=== PATIENT | female | born 1975 | race Caucasian/White ===

== ENCOUNTER 2016-07-25 11:09 | Emergency (ER) | payer OTHER ==
[2016-07-25 11:25] VITALS: O2SAT 100
--- NOTE | 2016-07-25 11:49 | ERPHSYRPT ---
- History of Present Illness Time Seen by Provider: 07/25/16 11:28 Historian: patient Exam Limitations: no limitations Patient Subjective Stated Complaint: rt abd pain since 07/20 Triage Nursing Assessment: pt states she went to dr on 07/23 and has labs and us ordered. pt c/o rt abd pain for days. nausea with no vomiting. having 4 bm's daily. no food since 2300 last night. 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 skin pink and warm Physician History: Pt. with Hep C and c/o RUQ pain for 5-7 days, pulsating, sharp at times, rad to back associated with nausea, diarrhea but no dizziness, weakness. States pain is current 10/10. Pt. ate pork roast, potatoes and carrots for breakfast and Loren steak/cheese for dinner yesterday. Pt with chronic UTI and treated multiple times with multiple antibiotics. Just finished round of Cipro/Flagyl for recent UTI. Pt. have been seen multiple ER visits on 07/13 and 07/16/16 at [facility]. States had abd CT that showed "gastric ulcer." Denies any recent fever, chills or vomiting. Pt. is recovering drug addict and does not want any narcotics. Timing/Duration: day(s) (), intermittent Activities at Onset: none Quality: sharpness Abdominal Pain Onset Location: RUQ Pain Radiation: flank, back Severity of Pain-Max: moderate Severity of Pain-Current: moderate Modifying Factors: Improves With: eating (worsens) Associated Symptoms: weakness, No fever/chills, No heartburn, No loss of appetite, No shortness of breath, No vomiting Previous symptoms: same symptoms as today Allergies/Adverse Reactions: bismuth subsalicylate [From Pepto-Bismol] Allergy (Verified 07/25/16 11:24) Swelling sulfamethoxazole [From Bactrim] Allergy (Verified 07/25/16 11:24) Swelling trimethoprim [From Bactrim] Allergy (Verified 07/25/16 11:24) Swelling ANTACIDS Allergy (Uncoded 07/25/16 11:24) Swelling Home Medications: Lisinopril 20 mg [Zestril 20 MG] 20 mg PO DAILY 03/11/16 [History] Gabapentin 800 mg PO TID 07/25/16 [History] Hydrochlorothiazide 25 mg [hydroDIURIL 25 MG] 25 mg PO DAILY 07/25/16 [ History] Sucralfate 1 gm [Carafate 1 GM] 1 gm PO QID 07/25/16 [History] Hx Tetanus, Diphtheria Vaccination/Date Given: Yes Hx Influenza Vaccination/Date Given: No Hx Pneumococcal Vaccination/Date Given: No Immunizations Up to Date: Yes - Review of Systems Constitutional: Weakness, No Fever, No Chills Eyes: No Symptoms Ears, Nose, & Throat: No Symptoms Respiratory: No Symptoms, No Cough, No Dyspnea Cardiac: No Symptoms, No Chest Pain, No Edema, No Syncope Abdominal/Gastrointestinal: Abdominal Pain, Nausea, Diarrhea, No Vomiting, No Constipation, No Hematemesis Genitourinary Symptoms: No Dysuria, No Frequency, No Incontinence, No Urgency Musculoskeletal: No Symptoms, No Back Pain, No Neck Pain Skin: No Symptoms, No Rash Neurological: No Symptoms, No Dizziness, No Focal Weakness, No Sensory Changes Psychological: No Symptoms Endocrine: No Symptoms All Other Systems: Reviewed and Negative - Past Medical History Pertinent Past Medical History: Yes Neurological History: No Pertinent History ENT History: No Pertinent History Cardiac History: No Pertinent History Respiratory History: No Pertinent History Endocrine Medical History: No Pertinent History Musculoskeletal History: No Pertinent History GI Medical History: Gallbladder Disease, Hepatitis (Hep C) History: Other (Chronic UTI/Kidney Stones) Psycho-Social History: Anxiety, Depression Female Reproductive Disorders: Abnormal Uterine Bleeding, Menstrual Problems Other Medical History: CHRONIC BACK PAIN - POLYCYSTIC KIDNEY DISEASE - Past Surgical History Past Surgical History: Yes Neuro Surgical History: No Pertinent History Cardiac: No Pertinent History Respiratory: No Pertinent History Gastrointestinal: No Pertinent History Musculoskeletal: Orthopedic Surgery Female Surgical History: Tubal Ligation, Other Other Surgical History: ankle, knee, uterine ablasion - Social History Smoking Status: Current every day smoker How long have you smoked: 30 Exposure to second hand smoke: No Drug Use: methamphetamines, narcotics Patient Lives Alone: No Significant Family History: no pertinent family hx - Nursing Vital Signs Nursing Vital Signs: Initial Vital Signs Temperature 97.7 F Temperature Source Oral Pulse Rate 80 Respiratory Rate 18 Blood Pressure [Right Arm] 118/60 Pain Intensity 4 - Physical Exam General Appearance: no apparent distress, alert Eye Exam: PERRL/EOMI, eyes nml inspection Ears, Nose, Throat Exam: normal ENT inspection, pharynx normal, moist mucous membranes Neck Exam: normal inspection, non-tender, supple, full range of motion Respiratory Exam: normal breath sounds, lungs clear, No respiratory distress Cardiovascular Exam: regular rate/rhythm, normal heart sounds Gastrointestinal/Abdomen Exam: soft, normal bowel sounds, tenderness (RUQ), No mass, No guarding, No pulsatile mass, No rebound Pelvic Exam: not done Rectal Exam: deferred Back Exam: normal inspection, normal range of motion, No CVA tenderness, No vertebral tenderness Extremity Exam: normal inspection, normal range of motion, pelvis stable Neurologic Exam: alert, oriented x 3, cooperative, normal mood/affect, nml cerebellar function, sensation nml, No motor deficits Skin Exam: normal color, warm, dry SpO2: 100 Oxygen Delivery: Room Air Ordered Tests: Active Orders 24 hr Category Date Time Status Clean Catch Urine Specimen STAT Care 07/25/16 11:50 Active IV Insertion STAT Care 07/25/16 12:07 Active NPO (ED) STAT Care 07/25/16 11:50 Active OBSTR/ACUTE ABDOMEN SERIES Stat Exams 07/25/16 11:52 Taken AMYLASE Stat Lab 07/25/16 12:03 Completed CBC W DIFF Stat Lab 07/25/16 12:03 Completed CMP Stat Lab 07/25/16 12:03 Completed LIPASE Stat Lab 07/25/16 12:03 Completed UA W/ MICROSCOPIC Stat Lab 07/25/16 11:51 Completed Urine Triage Profile Stat Lab 07/25/16 11:51 Completed Medication Summary Discontinued Medications Generic Name Dose Route Start Last Admin Trade Name Roseanen PRN Reason Stop Dose Admin Famotidine 20 mg 07/25/16 11:50 07/25/16 12:09 Pepcid 20 Mg Vial IV 07/25/16 11:51 20 mg STAT ONE Administration Famotidine Confirm 07/25/16 12:08 Pepcid 20 Mg Vial Administered 07/25/16 12:09 Dose 20 mg IV .STK-MED ONE Nalbuphine HCl 5 mg 07/25/16 11:54 07/25/16 12:09 Nubain 10 Mg/Ml IV 07/25/16 11:55 5 mg STAT ONE Administration Nalbuphine HCl Confirm 07/25/16 12:08 Nubain 10 Mg/Ml Administered 07/25/16 12:09 Dose 10 mg .ROUTE .STK-MED ONE Ondansetron HCl 4 mg 07/25/16 11:50 07/25/16 12:09 Zofran 4 Mg/2 Ml Vial IV 07/25/16 11:51 4 mg STAT ONE Administration Ondansetron HCl Confirm 07/25/16 12:08 Zofran 4 Mg/2 Ml Vial Administered 07/25/16 12:09 Dose 4 mg .ROUTE .STK-MED ONE Lab/Rad Data: Laboratory Result Diagrams 07/25/16 12:03 07/25/16 12:03 Laboratory Results 07/25/16 07/25/16 07/25/16 Range/Units 12:03 12:03 11:51 WBC 5.1 (4.0-10.5) K/mm3 RBC 4.16 (4.1-5.4) M/mm3 Hgb 13.2 (12.0-16.0) gm/dl Hct 39.8 (35-47) % MCV 95.7 (78-100) fl MCH 31.7 (26-32) pg MCHC 33.2 (32-36) g/dl RDW 13.1 (11.5-14.0) % Plt Count 183 (150-450) K/mm3 MPV 9.7 H (6-9.5) fl Gran % 61.3 (36.0-66.0) % Lymphocytes % 29.2 (24.0-44.0) % Monocytes % 6.8 (0.0-12.0) % Eosinophils % 2.5 (0.00-5.0) % Basophils % 0.2 (0.0-0.4) % Basophils # 0.01 (0-0.4) Sodium 142 (136-145) mEq/L Potassium 3.9 (3.5-5.1) mEq/L Chloride 105 (98-107) mEq/L Carbon Dioxide 27.2 (21-32) mEq/L Anion Gap 14.1 (5-15) MEQ/L BUN 19 (9-20) mg/dL Creatinine 0.88 (0.55-1.30) mg/dl Estimated GFR > 60 ML/MIN Glucose 89 (70-110) MG/DL Calcium 8.7 (8.5-10.1) mg/dL Total Bilirubin 0.3 (0.2-1.0) mg/dL AST 35 (15-37) U/L ALT 54 (12-78) U/L Alkaline Phosphatase 33 L (46-116) U/L Serum Total Protein 8.0 (6.4-8.2) gm/dL Albumin 3.9 (3.4-5.0) g/dL Amylase 86 (25-115) U/L Lipase 191 (73-393) U/L Ur Collection Type Urine Color (YELLOW) Urine Appearance (CLEAR) Urine pH (5-6) Ur Specific Markle (1.005-1.025) Urine Protein (Negative) Urine Glucose (UA) (NEGATIVE) mg/dL Urine Ketones (NEGATIVE) Urine Nitrite (NEGATIVE) Urine Bilirubin (NEGATIVE) Urine Urobilinogen (0-1) mg/dL Urine WBC (Auto) (NEGATIVE) Urine RBC (Auto) (0-5) Kamlesh/ul Urine Microscopic WBC (0-5) /HPF Ur Epithelial Cells (FEW) /HPF Urine Bacteria (NEGATIVE) /HPF Urine Opiates Level NEG. (NEGATIVE) Ur Methadone NEG. (NEGATIVE) Urine Barbiturates NEG. (NEGATIVE) Ur Phencyclidine (PCP) NEG. (NEGATIVE) Urine Amphetamine NEG. (NEGATIVE) U Benzodiazepine Level NEG. (NEGATIVE) Urine Cocaine NEG. (NEGATIVE) Urine Marijuana (THC) NEG. (NEGATIVE) Specimen Received 07/25/16 Range/Units 11:51 WBC (4.0-10.5) K/mm3 RBC (4.1-5.4) M/mm3 Hgb (12.0-16.0) gm/dl Hct (35-47) % MCV (78-100) fl MCH (26-32) pg MCHC (32-36) g/dl RDW (11.5-14.0) % Plt Count (150-450) K/mm3 MPV (6-9.5) fl Gran % (36.0-66.0) % Lymphocytes % (24.0-44.0) % Monocytes % (0.0-12.0) % Eosinophils % (0.00-5.0) % Basophils % (0.0-0.4) % Basophils # (0-0.4) Sodium (136-145) mEq/L Potassium (3.5-5.1) mEq/L Chloride (98-107) mEq/L Carbon Dioxide (21-32) mEq/L Anion Gap (5-15) MEQ/L BUN (9-20) mg/dL Creatinine (0.55-1.30) mg/dl Estimated GFR ML/MIN Glucose (70-110) MG/DL Calcium (8.5-10.1) mg/dL Total Bilirubin (0.2-1.0) mg/dL AST (15-37) U/L ALT (12-78) U/L Alkaline Phosphatase (46-116) U/L Serum Total Protein (6.4-8.2) gm/dL Albumin (3.4-5.0) g/dL Amylase (25-115) U/L Lipase (73-393) U/L Ur Collection Type CLEAN CATCH Urine Color YELLOW (YELLOW) Urine Appearance CLEAR (CLEAR) Urine pH 6.0 (5-6) Ur Specific Markle 1.015 (1.005-1.025) Urine Protein NEGATIVE (Negative) Urine Glucose (UA) NEGATIVE (NEGATIVE) mg/dL Urine Ketones NEGATIVE (NEGATIVE) Urine Nitrite NEGATIVE (NEGATIVE) Urine Bilirubin NEGATIVE (NEGATIVE) Urine Urobilinogen 0.2 (0-1) mg/dL Urine WBC (Auto) SMALL (NEGATIVE) Urine RBC (Auto) NEGATIVE (0-5) Kamlesh/ul Urine Microscopic WBC 10-15 (0-5) /HPF Ur Epithelial Cells FEW (FEW) /HPF Urine Bacteria FEW (NEGATIVE) /HPF Urine Opiates Level (NEGATIVE) Ur Methadone (NEGATIVE) Urine Barbiturates (NEGATIVE) Ur Phencyclidine (PCP) (NEGATIVE) Urine Amphetamine (NEGATIVE) U Benzodiazepine Level (NEGATIVE) Urine Cocaine (NEGATIVE) Urine Marijuana (THC) (NEGATIVE) Specimen Received [id number] - Progress Progress: improved Progress Note: 07/25/16 12:04 Pt. given Pepcid, Zofran, Nubain for pain. 07/25/16 13:07 States she feels better. Explained to pt. about normal labs and X-rays findings. Feels better and ready to go home Counseled pt/family regarding: lab results, diagnosis, rad results - Departure Time of Disposition: 13:09 Departure Disposition: Home, Extended Care Facility, [facility] Clinical Impression: Abdominal pain, Chronic UTI Condition: Stable Critical Care Time: No Instructions: Abdominal Pain-Adult, Urinary Tract Infection (UTI) Additional Instructions: No greasy, fatty or fried foods. Eat a bland diet for the next 3-5 days. Drink plenty of fluids RX: Pepcid Return for worse abdominal pain, vomiting, fever or any problems Prescriptions: Famotidine 20 mg [Pepcid 20 MG] 20 mg PO BID #30 tab
[2016-07-25] MEDS ORDERED: Zofran 4 MG/2 ML VIAL IV ONE (11:50)
[2016-07-25] MEDS ORDERED: Pepcid 20 MG VIAL IV ONE ×2 (11:50→12:08)
[2016-07-25] MEDS ORDERED: Nubain 10 MG/ML IV ONE (11:54)
[2016-07-25] MEDS ORDERED: Zofran 4 MG/2 ML VIAL ONE (12:08)
[2016-07-25] MEDS ORDERED: Nubain 10 MG/ML ONE (12:08)
[2016-07-25 12:13] LABS: BASOPHIL % 0.2 % (0.0-0.4); Eosinophil % 2.5 % (0.00-5.0); Granulocytes % 61.3 % (36.0-66.0); Lymphocytes % 29.2 % (24.0-44.0); Mean Cell Volume 95.7 fl (78-100); Mean Corpuscular Hemoglobin 31.7 pg (26-32); Mean Platelet Volume 9.7 fl (6-9.5); Monocytes % 6.8 % (0.0-12.0); Platelet Count 183 K/mm3 (150-450); Red Blood Count 4.16 M/mm3 (4.1-5.4); Red Cell Distribution Width 13.1 % (11.5-14.0); White Blood Count 5.1 K/mm3 (4.0-10.5)
[2016-07-25 12:16] LABS: Collection Type CLEAN CATCH
[2016-07-25 12:17] LABS: COMPLETE URINE MICROSCOPIC? YES
[2016-07-25 12:28] LABS: Bacteria FEW /HPF (NEGATIVE); Epithelial Cells FEW /HPF (FEW)
[2016-07-25 12:36] LABS: ALBUMIN 3.9 g/dL (3.4-5.0); ALKALINE PHOSPHATASE 33 U/L (46-116); ANION GAP 14.1 MEQ/L (5-15); BILIRUBIN,TOTAL 0.3 mg/dL (0.2-1.0); BLOOD UREA NITROGEN 19 mg/dL (9-20); CHLORIDE 105 mEq/L (98-107); Carbon Dioxide 27.2 mEq/L (21-32); Glucose 89 MG/DL (70-110); LIPASE 191 U/L (73-393); Potassium 3.9 mEq/L (3.5-5.1); SGOT/AST 35 U/L (15-37); SGPT/ALT 54 U/L (12-78); SODIUM 142 mEq/L (136-145)
[2016-07-25 12:51] VITALS: BP 118/60; PULSE 80
--- NOTE | 2016-07-25 21:04 | XRAY ---
Indication: Abdominal pain. History of kidney stones. Comparison: Chest exam March 11, 2016. 2 views of the abdomen demonstrates nonspecific nonobstructed bowel gas pattern. There are bilateral renal micro-calculi, left greater than right. No radiopaque calculus along the ureters or bladder. Left pelvic phlebolith. Remaining solid organs and osseous structures unremarkable. Single PA chest again demonstrates normal heart, lungs, and bony thorax. Impression: 1. Bilateral renal micro-calculi better evaluated with CT if clinically warranted. 2. Stable normal one view chest.
== END 2016-07-25 13:25 | disposition home or self-care (01) ==
LOC: ED 11:09
DX: R10.11 Right upper quadrant pain (principal); N39.0 Urinary tract infection, site not specified; Z87.440 Personal history of urinary (tract) infections; R11.0 Nausea; B19.20 Unspecified viral hepatitis C without hepatic coma; R19.7 Diarrhea, unspecified
CPT/HCPCS: 36000; 36415; 74022; 80053; 80307; 81000; 82150; 83690; 85025; 96374; 96375; 99284; J2300; J2405

== ENCOUNTER 2017-01-14 07:34 | Emergency (ER) | payer OTHER ==
[2017-01-14] MEDS ORDERED: NORCO 5/325 MG PO ONE (07:50)
[2017-01-14] MEDS ORDERED: NORCO 5/325 MG ONE (07:58)
--- NOTE | 2017-01-14 08:01 | ERPHSYRPT ---
- History of Present Illness Time Seen by Provider: 01/14/17 07:37 Source: patient Patient Subjective Stated Complaint: pt co pain to left knee since wednesday, no injury noted, had foot surg on december 04 Triage Nursing Assessment: left lower leg swollen, warm to touch, resp easy, skin w/d Physician History: CC: left leg pain hx: 41 y/o patient of Dr Mcknight had tarasal tunnel surgery last month per Dr Cruz. She has done well. Wednesday of this week she thinks she twisted left knee and has had pain in left knee for the past 2 days. No redness, warmth or fever. She had remote left knee surgery at age 14. Allergic to bactrim. Currently on levaquin for sinus infection and has some cough. No N/T/W. Lower Extremities Pain: knee: left Allergies/Adverse Reactions: bismuth subsalicylate [From Pepto-Bismol] Allergy (Verified 01/14/17 07:45) Swelling sulfamethoxazole [From Bactrim] Allergy (Verified 01/14/17 07:45) Swelling trimethoprim [From Bactrim] Allergy (Verified 01/14/17 07:45) Swelling ANTACIDS Allergy (Uncoded 01/14/17 07:45) Swelling Home Medications: Lisinopril 20 mg [Zestril 20 MG] 20 mg PO DAILY 03/11/16 [History] Gabapentin 800 mg PO TID 07/25/16 [History] Hydrochlorothiazide 25 mg [hydroDIURIL 25 MG] 25 mg PO DAILY 07/25/16 [ History] Sucralfate 1 gm [Carafate 1 GM] 1 gm PO QID 07/25/16 [History] Hx Tetanus, Diphtheria Vaccination/Date Given: Yes Hx Influenza Vaccination/Date Given: No Hx Pneumococcal Vaccination/Date Given: No Immunizations Up to Date: Yes - Review of Systems Constitutional: No Fever, No Chills Musculoskeletal: Joint Pain (left knee), No Back Pain, No Neck Pain Skin: No Rash, No Skin Lesions Neurological: No Focal Weakness, No Parasthesia - Past Medical History Pertinent Past Medical History: Yes Neurological History: No Pertinent History ENT History: No Pertinent History Cardiac History: No Pertinent History Respiratory History: No Pertinent History Endocrine Medical History: No Pertinent History Musculoskeletal History: No Pertinent History GI Medical History: Gallbladder Disease, Hepatitis History: Other Psycho-Social History: Anxiety, Depression Female Reproductive Disorders: Abnormal Uterine Bleeding, Menstrual Problems Other Medical History: CHRONIC BACK PAIN - POLYCYSTIC KIDNEY DISEASE - Past Surgical History Past Surgical History: Yes Neuro Surgical History: No Pertinent History Cardiac: No Pertinent History Respiratory: No Pertinent History Gastrointestinal: No Pertinent History Musculoskeletal: Orthopedic Surgery Female Surgical History: Tubal Ligation, Other Other Surgical History: ankle, knee, uterine ablasion,knee surg - Social History Smoking Status: Current every day smoker How long have you smoked: 30 Exposure to second hand smoke: Yes Drug Use: methamphetamines, narcotics Patient Lives Alone: No Significant Family History: no pertinent family hx - Female History Hx Last Menstrual Period: none - Nursing Vital Signs Nursing Vital Signs: Initial Vital Signs Temperature 97.8 F 01/14/17 07:39 Pulse Rate 71 01/14/17 07:39 Respiratory Rate 16 01/14/17 07:39 Blood Pressure 127/67 01/14/17 07:39 O2 Sat by Pulse Oximetry 98 01/14/17 07:39 Pain Scale Pain Intensity 10 - Physical Exam General Appearance: alert Neck Exam: supple Cardiovascular/Respiratory Exam: regular rate/rhythm Neuro/Tendon Exam: normal sensation, normal motor functions Mental Status Exam: alert, oriented x 3, cooperative Skin Exam: warm, dry SpO2 Interpretation: normal SpO2: 98 Oxygen Delivery: Room Air Comments: left knee has healed scar. Some swelling. Tenderness present. No redness or warmth. The entire left leg has some swelling and mild diffuse tenderness. Pulses intact. No redness or warmth. - Course Nursing assessment & vital signs reviewed: Yes - Radiology Exams left knee, lower leg X-ray Interpretation: Discussed w/ radiologist, Negative (STS, no fx, prepatellar swelling, vascular calcifications) - Radiology Ultrasound Exam left leg doppler Ultrasound: Other (no DVT per tech) Ordered Tests: Active Orders 24 hr Category Date Time Status Jim Bandage Application -[facility] STAT Care 01/14/17 08:58 Active KNEE (1 OR 2 VIEW) Stat Exams 01/14/17 07:54 Completed LOWER LEG Stat Exams 01/14/17 07:54 Completed VENOUS UNILAT/LIMITED EXTREMIT [US] Stat Exams 01/14/17 07:55 Taken Medication Summary Discontinued Medications Generic Name Dose Route Start Last Admin Trade Name Roseanne PRN Reason Stop Dose Admin Hydrocodone Bitart/Acetaminophen 1 tab 01/14/17 07:50 01/14/17 08:00 Hines 5/325 Mg PO 01/14/17 07:51 1 tab STAT ONE Administration Hydrocodone Bitart/Acetaminophen Confirm 01/14/17 07:58 Hines 5/325 Mg Administered 01/14/17 07:59 Dose 1 tab .ROUTE .STK-MED ONE - Progress Progress Note: 01/14/17 08:59 She reports wearing jim wrap for 2 days and took it off this AM as the leg was swollen. Perhaps the edema is from the jim. Proper use of jim, not too tight, and removing at night advised. Follow up with Dr Mcknight advised. Advised no nephrotoxic medications as she has polycystic kidneys. Counseled pt/family regarding: diagnosis, need for follow-up, rad results - Departure Time of Disposition: 09:00 Departure Disposition: Home Clinical Impression: Sprain of left knee Qualifiers: Encounter type: initial encounter Involved ligament of knee: unspecified ligament Qualified Code(s): S83.92XA - Sprain of unspecified site of left knee, initial encounter Condition: Stable Critical Care Time: No Referrals: ESTER MCKNIGHT [Primary Care Provider] - Instructions: Apply an Jim Wrap, Knee Sprain Additional Instructions: No ibuprofen, aleve, naproxen, or NSAIDS. Loose jim wrap during day for comfort. Ice, elevate, rest. Follow up with Dr Mcknight. Rx norco- no driving today or while taking. Prescriptions: Hydrocodone Bit/Acetaminophen [Hines 5-325 Tablet] 1 each PO Q6H PRN PRN #5 tablet PRN Reason: Pain
--- NOTE | 2017-01-14 08:47 | XRAY ---
Indication: Pain. Comparison: None 2 views of the left lower leg demonstrates knee degenerative changes reported separately and mild diffuse soft tissue swelling/edema. No other bony, articular, or soft tissue abnormalities.
--- NOTE | 2017-01-14 08:47 | XRAY ---
Indication: Pain. Comparison: None AP/lateral left knee intact with mild tricompartmental degenerative changes, nonspecific suprapatellar effusion, and faint posterior vascular calcifications. No other bony, articular, or soft tissue abnormalities.
--- NOTE | 2017-01-14 09:08 | XRAY ---
Indication: Left leg pain. Two-dimensional sonogram and color Doppler imaging of the major venous vessels of the left leg was performed. Comparison: None No thrombus seen in the examined deep venous vessels of the left leg including greater saphenous vein. Veins demonstrate normal compressibility. Venous waveforms are normal with and without augmentation. Impression: Left leg negative for DVT.
[2017-01-14 09:15] VITALS: BP 133/67; PULSE 77; O2SAT 97
== END 2017-01-14 09:14 | disposition home or self-care (01) ==
LOC: ED 07:34
DX: S83.92XA Sprain of unspecified site of left knee, initial encounter (principal); M25.562 Pain in left knee; X50.0XXA Overexertion from strenuous movement or load, initial encounter
CPT/HCPCS: 73560; 73590; 93971; 99282; 99283; A9270-GY

== ENCOUNTER 2017-01-27 14:00 | Emergency (ER) | payer OTHER ==
[2017-01-27] MEDS ORDERED: Sodium Chloride 0.9% 1000 ML 1,000 ML IV STA (15:14)
[2017-01-27] MEDS ORDERED: TORAdol 30 mg Injection IV ONE (15:14)
--- NOTE | 2017-01-27 15:19 | ERPHSYRPT ---
- History of Present Illness Time Seen by Provider: 01/27/17 15:14 Historian: patient Exam Limitations: no limitations Patient Subjective Stated Complaint: Pt states "I have a major malfunction with my left kidney. It started to hurt this morning and it is not getting any better." Triage Nursing Assessment: Pt alert and oriented X 3, skin pwd. PT ambulates with an upright steady gait. PT able to speak in full clear sentences. Physician History: This is a 41-year-old white female arrives with complaint of pain in her left flank symptoms since four o'clock this morning Patient denies dysuria hematuria nausea vomiting pain is in her left flank and left lateral abdomen. Past medical history includes gallbladder disease, hepatitis, abnormal uterine bleeding, menstrual problems, anxiety, depression, chronic back pain, polycystic kidney disease. Past surgical history includes tubal ligation and uterine ablation knee surgery. Timing/Duration: today (4:30 this morning) Activities at Onset: rest Quality: cramping, sharpness Abdominal Pain Onset Location: flank (left flank), other (left lateral abdomen) Pain Radiation: flank (left flank) Severity of Pain-Max: moderate Severity of Pain-Current: moderate Modifying Factors: Improves With: nothing Associated Symptoms: back (left flank pain), No chest pain, No diaphoresis, No diarrhea, No fever/chills, No fatigue, No headache, No heartburn, No loss of appetite, No nausea, No neck pain, No rash, No shortness of breath, No syncope, No vomiting, No weakness Previous symptoms: no prior history Allergies/Adverse Reactions: bismuth subsalicylate [From Pepto-Bismol] Allergy (Verified 01/14/17 07:45) Swelling sulfamethoxazole [From Bactrim] Allergy (Verified 01/14/17 07:45) Swelling trimethoprim [From Bactrim] Allergy (Verified 01/14/17 07:45) Swelling ANTACIDS Allergy (Uncoded 01/14/17 07:45) Swelling Home Medications: Lisinopril 20 mg [Zestril 20 MG] 20 mg PO DAILY 03/11/16 [History] Gabapentin 800 mg PO TID 07/25/16 [History] Hydrochlorothiazide 25 mg [hydroDIURIL 25 MG] 25 mg PO DAILY 07/25/16 [ History] Sucralfate 1 gm [Carafate 1 GM] 1 gm PO QID 07/25/16 [History] Hx Tetanus, Diphtheria Vaccination/Date Given: Yes Hx Influenza Vaccination/Date Given: No Hx Pneumococcal Vaccination/Date Given: No Immunizations Up to Date: Yes - Review of Systems Constitutional: No Fever, No Chills Eyes: No Symptoms Ears, Nose, & Throat: No Symptoms Respiratory: No Cough, No Dyspnea Cardiac: No Chest Pain, No Edema, No Syncope Abdominal/Gastrointestinal: Abdominal Pain (left lateral abdomen pain), No Nausea, No Vomiting, No Constipation, No Hematemesis, No Hematochezia, No Melena , No Dysphagia, No Appetite Changes Genitourinary Symptoms: Flank Pain (left flank pain), No Dysuria, No Frequency, No Hematuria, No Hesitancy, No Urgency, No Urinary Retention, No Menorrhagia, No , No Vaginal Bleeding, No Vaginal Discharge Musculoskeletal: No Arthralgias, No Back Pain ( left flank pain), No Neck Pain, No Deformity, No Fall, No Joint Redness, No Joint Pain, No Joint Swelling, No Myalgias Skin: No No Symptoms, No Cellulitis, No Decubiti, No Induration, No Pruritis, No Rash, No Skin Lesions Neurological: No Dizziness, No Focal Weakness, No Sensory Changes Psychological: No Symptoms Endocrine: No Symptoms All Other Systems: Reviewed and Negative - Past Medical History Pertinent Past Medical History: Yes Neurological History: No Pertinent History ENT History: No Pertinent History Cardiac History: No Pertinent History Respiratory History: No Pertinent History Endocrine Medical History: No Pertinent History Musculoskeletal History: No Pertinent History GI Medical History: Gallbladder Disease, Hepatitis History: Other Psycho-Social History: Anxiety, Depression Female Reproductive Disorders: Abnormal Uterine Bleeding, Menstrual Problems Other Medical History: CHRONIC BACK PAIN - POLYCYSTIC KIDNEY DISEASE - Past Surgical History Past Surgical History: Yes Neuro Surgical History: No Pertinent History Cardiac: No Pertinent History Respiratory: No Pertinent History Gastrointestinal: No Pertinent History Musculoskeletal: Orthopedic Surgery Female Surgical History: Tubal Ligation, Other Other Surgical History: ankle, knee, uterine ablasion,knee surg - Social History Smoking Status: Current every day smoker How long have you smoked: 33 years Exposure to second hand smoke: Yes Drug Use: methamphetamines, narcotics Patient Lives Alone: No Significant Family History: no pertinent family hx - Female History Hx Last Menstrual Period: ablasion - Nursing Vital Signs Nursing Vital Signs: Initial Vital Signs Temperature 98.6 F 01/27/17 14:47 Pulse Rate 104 H 01/27/17 14:47 Respiratory Rate 20 01/27/17 14:47 Blood Pressure 129/90 01/27/17 14:47 O2 Sat by Pulse Oximetry 94 L 01/27/17 14:47 Pain Scale Pain Intensity 8 - Physical Exam General Appearance: moderate distress, alert Eye Exam: PERRL/EOMI, eyes nml inspection Ears, Nose, Throat Exam: normal ENT inspection, pharynx normal, moist mucous membranes Neck Exam: normal inspection, non-tender, supple, full range of motion Respiratory Exam: normal breath sounds, lungs clear, No respiratory distress Cardiovascular Exam: regular rate/rhythm, normal heart sounds, normal peripheral pulses Gastrointestinal/Abdomen Exam: soft, normal bowel sounds, tenderness (left lateral abdomen pain), No distention, No mass, No guarding, No ecchymosis, No pulsatile mass, No rebound, No hernia, No hepatomegaly, No organomegaly, No splenomegaly Back Exam: normal range of motion, CVA tenderness (left flank pain), No vertebral tenderness, No rash, No decreased range of motion, No muscle spasm, No point tenderness Extremity Exam: normal inspection, normal range of motion, pelvis stable Neurologic Exam: alert, oriented x 3, cooperative, normal mood/affect, nml cerebellar function, sensation nml, No motor deficits Skin Exam: normal color, warm, dry SpO2 Interpretation: normal (94%) SpO2: 94 Oxygen Delivery: Room Air - Course Nursing assessment & vital signs reviewed: Yes - CT Exams Abdomen/Pelvis CT Interpretation: Discussed w/radiologist (CT abdomen and pelvis: impression: 1. Few loops of jejunum demonstrating abnormal wall thickening and at least one adjacent bowel loops which is mildly distended with gas. The appearance is nonspecific, but could indicate an enteritis. A small bowel follow-through may be considered for further evaluation. 2. Multiple simple and probable complicated renal cysts along with bilateral intrarenal nephrolithiasis. There is no hydronephrosis. A solid renal mass is difficult to exclude on this exam. Please see the final report for recommendations regarding follow-up. 3. Bilateral simple larger on the left. if symptomatic, an ultrasound may be obtained for further evaluation.) Ordered Tests: Active Orders 24 hr Category Date Time Status IV Insertion STAT Care 01/27/17 15:14 Active ABDOMEN AND PELVIS W/0 CONTRAS [CT] Stat Exams 01/27/17 17:04 Taken AMYLASE Stat Lab 01/27/17 16:35 Completed CBC W DIFF Stat Lab 01/27/17 15:14 Completed CMP Stat Lab 01/27/17 16:35 Completed CULTURE,URINE Stat Lab 01/27/17 15:30 Received HCG QUALITATIVE,SERUM Stat Lab 01/27/17 16:35 Completed LIPASE Stat Lab 01/27/17 16:35 Completed UA W/ MICROSCOPIC Stat Lab 01/27/17 15:30 Completed Medication Summary Discontinued Medications Generic Name Dose Route Start Last Admin Trade Name Freq PRN Reason Stop Dose Admin Sodium Chloride 1,000 mls @ 999 mls/hr 01/27/17 15:14 01/27/17 15:57 Sodium Chloride 0.9% 1000 Ml IV 01/27/17 16:14 999 mls/hr .Q1H1M STA Administration Sodium Chloride Confirm 01/27/17 15:53 Sodium Chloride 0.9% 1000 Ml Administered 01/27/17 15:54 Dose 1,000 mls @ ud .ROUTE .STK-MED ONE Ketorolac Tromethamine 30 mg 01/27/17 15:14 01/27/17 15:57 Toradol 30 Mg Injection IV 01/27/17 15:15 30 mg STAT ONE Administration Ketorolac Tromethamine Confirm 01/27/17 15:53 Toradol 30 Mg Injection Administered 01/27/17 15:54 Dose 30 mg .ROUTE .STK-MED ONE Morphine Sulfate 4 mg 01/27/17 16:31 01/27/17 16:35 Morphine Sulfate 4 Mg Inj IV 01/27/17 16:32 4 mg STAT ONE Administration Morphine Sulfate Confirm 01/27/17 16:34 Morphine Sulfate 4 Mg Inj Administered 01/27/17 16:35 Dose 4 mg .ROUTE .STK-MED ONE Morphine Sulfate 4 mg 01/27/17 17:07 01/27/17 17:09 Morphine Sulfate 4 Mg Inj IV 01/27/17 17:08 4 mg STAT ONE Administration Morphine Sulfate Confirm 01/27/17 17:09 Morphine Sulfate 4 Mg Inj Administered 01/27/17 17:10 Dose 4 mg .ROUTE .STK-MED ONE Ondansetron HCl 4 mg 01/27/17 16:31 01/27/17 16:35 Zofran 4 Mg/2 Ml Vial IV 01/27/17 16:32 4 mg STAT ONE Administration Ondansetron HCl Confirm 01/27/17 16:34 Zofran 4 Mg/2 Ml Vial Administered 01/27/17 16:35 Dose 4 mg .ROUTE .STK-MED ONE Lab/Rad Data: Laboratory Result Diagrams 01/27/17 15:14 01/27/17 16:35 Laboratory Results 01/27/17 01/27/17 01/27/17 Range/Units 16:35 16:35 15:30 WBC (4.0-10.5) K/mm3 RBC (4.1-5.4) M/mm3 Hgb (12.0-16.0) gm/dl Hct (35-47) % MCV (78-100) fl MCH (26-32) pg MCHC (32-36) g/dl RDW (11.5-14.0) % Plt Count (150-450) K/mm3 MPV (6-9.5) fl Gran % (36.0-66.0) % Lymphocytes % (24.0-44.0) % Monocytes % (0.0-12.0) % Eosinophils % (0.00-5.0) % Basophils % (0.0-0.4) % Basophils # (0-0.4) Sodium 138 (136-145) mEq/L Potassium 3.7 (3.5-5.1) mEq/L Chloride 101 (98-107) mEq/L Carbon Dioxide 27.0 (21-32) mEq/L Anion Gap 13.8 (5-15) MEQ/L BUN 18 (9-20) mg/dL Creatinine 0.85 (0.55-1.30) mg/dl Estimated GFR > 60 ML/MIN Glucose 101 (70-110) MG/DL Calcium 8.8 (8.5-10.1) mg/dL Total Bilirubin 0.20 (0.2-1.0) mg/dL AST 15 (15-37) U/L ALT 40 (12-78) U/L Alkaline Phosphatase 47 (46-116) U/L Serum Total Protein 7.1 (6.4-8.2) gm/dL Albumin 3.5 (3.4-5.0) g/dL Amylase 66 (25-115) U/L Lipase 140 (73-393) U/L Serum , Qual NEGATIVE (Negative) Ur Collection Type CLEAN CATCH Urine Color YELLOW (YELLOW) Urine Appearance CLEAR (CLEAR) Urine pH 6.0 (5-6) Ur Specific [place] 1.010 (1.005-1.025) Urine Protein NEGATIVE (Negative) Urine Ketones NEGATIVE (NEGATIVE) Urine Blood NEGATIVE (0-5) Kamlesh/ul Urine Nitrite NEGATIVE (NEGATIVE) Urine Bilirubin NEGATIVE (NEGATIVE) Urine Urobilinogen NORMAL (0-1) mg/dL Ur Leukocyte Esterase 2+ (NEGATIVE) Urine Microscopic WBC 15-25 (0-5) /HPF Ur Epithelial Cells FEW (FEW) /HPF Urine Bacteria RARE (NEGATIVE) /HPF Urine Glucose NEGATIVE (NEGATIVE) mg/dL Specimen Received 01/27/17 1530 01/27/17 Range/Units 15:14 WBC 17.4 H (4.0-10.5) K/mm3 RBC 4.74 (4.1-5.4) M/mm3 Hgb 15.2 (12.0-16.0) gm/dl Hct 45.1 (35-47) % MCV 95.1 (78-100) fl MCH 32.1 H (26-32) pg MCHC 33.7 (32-36) g/dl RDW 14.1 H (11.5-14.0) % Plt Count 107 L (150-450) K/mm3 MPV 11.1 H (6-9.5) fl Gran % 83.9 H (36.0-66.0) % Lymphocytes % 11.9 L (24.0-44.0) % Monocytes % 4.0 (0.0-12.0) % Eosinophils % 0.1 (0.00-5.0) % Basophils % 0.1 (0.0-0.4) % Basophils # 0.01 (0-0.4) Sodium (136-145) mEq/L Potassium (3.5-5.1) mEq/L Chloride (98-107) mEq/L Carbon Dioxide (21-32) mEq/L Anion Gap (5-15) MEQ/L BUN (9-20) mg/dL Creatinine (0.55-1.30) mg/dl Estimated GFR ML/MIN Glucose (70-110) MG/DL Calcium (8.5-10.1) mg/dL Total Bilirubin (0.2-1.0) mg/dL AST (15-37) U/L ALT (12-78) U/L Alkaline Phosphatase (46-116) U/L Serum Total Protein (6.4-8.2) gm/dL Albumin (3.4-5.0) g/dL Amylase (25-115) U/L Lipase (73-393) U/L Serum , Qual (Negative) Ur Collection Type Urine Color (YELLOW) Urine Appearance (CLEAR) Urine pH (5-6) Ur Specific [place] (1.005-1.025) Urine Protein (Negative) Urine Ketones (NEGATIVE) Urine Blood (0-5) Kamlesh/ul Urine Nitrite (NEGATIVE) Urine Bilirubin (NEGATIVE) Urine Urobilinogen (0-1) mg/dL Ur Leukocyte Esterase (NEGATIVE) Urine Microscopic WBC (0-5) /HPF Ur Epithelial Cells (FEW) /HPF Urine Bacteria (NEGATIVE) /HPF Urine Glucose (NEGATIVE) mg/dL Specimen Received - Progress Progress: improved Progress Note: 01/27/17 18:37 41-year-old white female arrives with complaint of left flank pain since 4:00 this morning She does have a history of gallbladder disease hepatitis abnormal uterine bleeding chronic back pain anxiety depression and polycystic kidney disease Patient was seen in the emergency room patient was noted to have a CT that showed few loops of jejunum demonstrating abnormal wall thickening at least one adjacent small bowel loop which was mildly distended with gas appearance was nonspecific could represent an enteritis she also had multiple simple and probable complicated renal cysts along with bilateral intrarenal nephrolithiasis there was no hydronephrosis a solid mass was difficult to exclude on this exam she had bilateral simple adnexal cysts larger on the left. Patient had a white count of 17.4 hemoglobin 15.2 hematocrit 45.1 platelets 107 patient's urine showed 15-25 white cells per high-power field chemistry was essentially normal Patient received a dose of Toradol, multiple doses of morphine and IV fluids. I offered to discuss this with the physician on-call for the hospital however the patient states she wants to go home Will go ahead and place patient on Cipro 500 mg by mouth twice a day. And write for a small amount of [place] patient states she will follow-up with her family doctor tomorrow morning. - Departure Time of Disposition: 18:40 Departure Disposition: Home Clinical Impression: Flank pain, Urinary tract infectious disease, History of polycystic kidney disease Condition: Fair Critical Care Time: No Referrals: ESTER LEONARD [Primary Care Provider] - Additional Instructions: Return home. Plenty of fluids, clear fluids only 24-48 hours if abdominal pain. [place] 5/325 #12 one orally every 4-6 hours as needed for pain. Cipro 500 mg orally twice a day for 10 days. Follow-up with Dr. Martinez tomorrow sooner if problems. Return for acute distress or for severe symptoms. Prescriptions: Ciprofloxacin [Cipro 500 MG] 500 mg PO BID #20 tablet Hydrocodone Bit/Acetaminophen [[place] 5/325Mg] 1 tab PO Q4-6HPRN PRN #12 tablet PRN Reason: Pain
[2017-01-27 15:34] LABS: BASOPHIL % 0.1 % (0.0-0.4); Eosinophil % 0.1 % (0.00-5.0); Granulocytes % 83.9 % (36.0-66.0); Lymphocytes % 11.9 % (24.0-44.0); Mean Cell Volume 95.1 fl (78-100); Mean Corpuscular Hemoglobin 32.1 pg (26-32); Mean Platelet Volume 11.1 fl (6-9.5); Platelet Count 107 K/mm3 (150-450); Red Blood Count 4.74 M/mm3 (4.1-5.4); Red Cell Distribution Width 14.1 % (11.5-14.0); White Blood Count 17.4 K/mm3 (4.0-10.5)
[2017-01-27] MEDS ORDERED: TORAdol 30 mg Injection ONE (15:53)
[2017-01-27] MEDS ORDERED: Sodium Chloride 0.9% 1000 ML 1,000 ML ONE (15:53)
[2017-01-27 15:57] LABS: ADD URINE CULTURE? YES (NO); Bacteria RARE /HPF (NEGATIVE); Bilirubin NEGATIVE (NEGATIVE); Blood NEGATIVE Ery/ul (0-5); COMPLETE URINE MICROSCOPIC? YES; Collection Type CLEAN CATCH; Epithelial Cells FEW /HPF (FEW); Glucose NEGATIVE (NEGATIVE); Leukocyte Esterase 2+ (NEGATIVE); WBC 15-25 /HPF (0-5)
[2017-01-27] MEDS ORDERED: MORPHINE SULFATE 4 MG INJ IV ONE ×2 (16:31→17:07)
[2017-01-27] MEDS ORDERED: Zofran 4 MG/2 ML VIAL IV ONE (16:31)
[2017-01-27] MEDS ORDERED: MORPHINE SULFATE 4 MG INJ ONE ×2 (16:34→17:09)
[2017-01-27] MEDS ORDERED: Zofran 4 MG/2 ML VIAL ONE (16:34)
[2017-01-27 17:04] LABS: ALBUMIN 3.5 g/dL (3.4-5.0); ALKALINE PHOSPHATASE 47 U/L (46-116); ANION GAP 13.8 MEQ/L (5-15); BLOOD UREA NITROGEN 18 mg/dL (9-20); CHLORIDE 101 mEq/L (98-107); Glucose 101 MG/DL (70-110); LIPASE 140 U/L (73-393); Potassium 3.7 mEq/L (3.5-5.1); SGOT/AST 15 U/L (15-37); SGPT/ALT 40 U/L (12-78); SODIUM 138 mEq/L (136-145); Total Protein 7.1 gm/dL (6.4-8.2)
[2017-01-27 18:49] VITALS: BP 135/72; PULSE 100; O2SAT 98
--- NOTE | 2017-01-29 16:55 | XRAY ---
Exam: CT of the abdomen and pelvis without IV contrast from 01/27/2017. CTDI: 20.61 Comparison: CT of the abdomen and pelvis without IV contrast from 06/21/2016. Indication: "Abdominal pain under left rib 1 day" Technique: Non-IV contrast axial images were obtained through the abdomen and pelvis. Reconstructed coronal and sagittal images were created and reviewed. No IV contrast was given. Findings: The lung bases appear clear. The transverse heart size is normal. The liver is of normal size and reveals scattered small low-attenuation lesions which I believe represent hepatic cysts and appear essentially unchanged from 06/21/2016. The largest hepatic cyst is seen within the medial aspect of the right hepatic lobe on axial image #30 and measures 1.5 cm in diameter and +7.95 Hounsfield units. The gallbladder is mildly distended and reveals no dense calcifications within it. The spleen, pancreas, and adrenal glands appear unremarkable. The kidneys reveal multiple micro-calculi within the inferior aspect of both kidneys, more numerous on the left than right. I see no evidence of hydronephrosis. Also, there are multiple bilateral small renal cysts, some appearing hypoattenuated and some displaying a mildly increased attenuation suggesting hemorrhage or proteinaceous material. This appears essentially unchanged from 06/21/2016. I believe there is a minimal hiatal hernia on axial images #15 and #16. The bowel is not distended. However, there appears to be some mild proximal small bowel jejunal wall thickening on axial images #43 through #53. For example, the proximal jejunal wall thickness on axial image #46 measures about 8-9 mm in diameter within the left upper quadrant. The reason for this is not clear. Consider enteritis. There is no free air. A mild fat-containing umbilical hernia is seen measuring 1.7 cm in width on axial image #55. No bowel containing ventral hernia is seen. Atherosclerotic facet calcification is seen within the abdominal aorta and proximal iliac arteries. No abdominal aortic aneurysm or abnormal retroperitoneal lymphadenopathy is seen. Moderate colonic fecal stasis is seen. I see no findings of appendicitis within the right lower quadrant. The uterus is anteflexed and tilted to the right.. The urinary bladder is partially empty. Within the left pelvic adnexa, there is an oval-shaped low-attenuation nodule measuring about or 4.8 cm in AP dimension and 3.2 cm in craniocaudal dimension on sagittal image #94. This oval low-attenuation nodule measures -2.4 Hounsfield units. This also is seen on coronal image #83 and axial images #93 through #97. This probably represents a left ovarian cyst. I cannot exclude a smaller cyst within the right ovary on axial image #96. Consider further evaluation with a pelvic ultrasound. No free fluid is seen. The skeleton reveals no acute fracture or aggressive bone lesion. 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 Some small Schmorl's nodes are seen within the superior vertebral endplate of L1 and the lower thoracic spine. There is mild narrowing of the L3-L4 interspace, likely due to degenerative change. Impression: 1. I again see extensive bilateral renal micro-calculi within the lower pole of each kidney, a greater number on the left than right. I see no evidence of acute obstructive uropathy. 2. There are also many small hypoattenuated as well as some hyperattenuated bilateral renal cysts representing no change. I also see scattered stable hepatic cysts. Consider mild polycystic renal disease. 3. Within the proximal jejunum there is a question of some bowel wall thickening measuring up to 8-9 mm in thickness. For example, see axial image #47 of series #3. There is no bowel distention. Consider enteritis. 4. I believe there are bilateral pelvic adnexal cysts, larger on the left. Consider further evaluation with a pelvic ultrasound. 5. Moderate fecal colonic stasis. 6. Small hiatal hernia and small fat-containing umbilical hernia are again seen. No free air or free fluid is seen.
== END 2017-01-27 18:50 | disposition home or self-care (01) ==
LOC: ED 14:00
DX: R10.9 Unspecified abdominal pain (principal); N39.0 Urinary tract infection, site not specified; Q61.3 Polycystic kidney, unspecified
CPT/HCPCS: 36000; 36415; 74176; 80053; 81000; 82150; 83690; 84703; 85025; 87077; 87086; 87186; 96374; 96375; 99284; J1885; J2270; J2405

== ENCOUNTER 2017-03-14 18:02 | Emergency (ER) | payer OTHER ==
[2017-03-14] MEDS ORDERED: Sodium Chloride 0.9% 1000 ML 1,000 ML IV STA (18:09)
[2017-03-14] MEDS ORDERED: Sodium Chloride 0.9% 1000 ML 1,000 ML ONE (18:14)
--- NOTE | 2017-03-14 18:20 | ERPHSYRPT ---
- History of Present Illness Time Seen by Provider: 03/14/17 18:18 Historian: patient Exam Limitations: no limitations Patient Subjective Stated Complaint: pt here for abd pain to entire abd, since starting prep for a egd/colonoscopy tomorrow, is having chronic left sided abd pain Triage Nursing Assessment: pt is alert, moaning and holding stomach, abd soft, resp easy, skin w/d pink Physician History: pt here for abd pain to entire abd, since starting prep for a egd/colonoscopy tomorrow, is having chronic left sided abd pain Timing/Duration: today Activities at Onset: none Quality: cramping Abdominal Pain Onset Location: generalized abdomen Pain Radiation: no radiation Severity of Pain-Max: moderate Severity of Pain-Current: mild Modifying Factors: Improves With: nothing Associated Symptoms: denies symptoms Previous symptoms: same symptoms as today Allergies/Adverse Reactions: bismuth subsalicylate [From Pepto-Bismol] Allergy (Verified 03/14/17 18:12) Swelling sulfamethoxazole [From Bactrim] Allergy (Verified 03/14/17 18:12) Swelling trimethoprim [From Bactrim] Allergy (Verified 03/14/17 18:12) Swelling ANTACIDS Allergy (Uncoded 03/14/17 18:12) Swelling Home Medications: Lisinopril 20 mg [Zestril 20 MG] 20 mg PO DAILY 03/11/16 [History] Gabapentin 800 mg PO TID 07/25/16 [History] Hydrochlorothiazide 25 mg [hydroDIURIL 25 MG] 25 mg PO DAILY 07/25/16 [ History] Sucralfate 1 gm [Carafate 1 GM] 1 gm PO QID 07/25/16 [History] Hx Tetanus, Diphtheria Vaccination/Date Given: Yes Hx Influenza Vaccination/Date Given: Yes Hx Pneumococcal Vaccination/Date Given: No Immunizations Up to Date: Yes - Review of Systems Constitutional: No Fever, No Chills Eyes: No Symptoms Ears, Nose, & Throat: No Symptoms Respiratory: No Cough, No Dyspnea Cardiac: No Chest Pain, No Edema, No Syncope Abdominal/Gastrointestinal: Abdominal Pain, No Nausea, No Vomiting, No Diarrhea Genitourinary Symptoms: No Dysuria Musculoskeletal: No Back Pain, No Neck Pain Skin: No Rash Neurological: No Dizziness, No Focal Weakness, No Sensory Changes Psychological: No Symptoms Endocrine: No Symptoms All Other Systems: Reviewed and Negative - Past Medical History Pertinent Past Medical History: Yes Neurological History: No Pertinent History ENT History: No Pertinent History Cardiac History: No Pertinent History Respiratory History: No Pertinent History Endocrine Medical History: No Pertinent History Musculoskeletal History: No Pertinent History GI Medical History: Gallbladder Disease, Hepatitis History: Other Psycho-Social History: Anxiety, Depression Female Reproductive Disorders: Abnormal Uterine Bleeding, Menstrual Problems Other Medical History: CHRONIC BACK PAIN - POLYCYSTIC KIDNEY DISEASE - Past Surgical History Past Surgical History: Yes Neuro Surgical History: No Pertinent History Cardiac: No Pertinent History Respiratory: No Pertinent History Gastrointestinal: No Pertinent History Musculoskeletal: Orthopedic Surgery Female Surgical History: Tubal Ligation, Other Other Surgical History: ankle, knee, uterine ablasion,knee surg - Social History Smoking Status: Current every day smoker How long have you smoked: 33 years Exposure to second hand smoke: Yes Drug Use: methamphetamines, narcotics Patient Lives Alone: No Significant Family History: no pertinent family hx - Female History Hx Last Menstrual Period: albasion - Nursing Vital Signs Nursing Vital Signs: Initial Vital Signs Temperature 98.2 F 03/14/17 18:07 Pulse Rate 75 03/14/17 18:07 Respiratory Rate 22 03/14/17 18:07 Blood Pressure 92/50 03/14/17 18:07 O2 Sat by Pulse Oximetry 100 03/14/17 18:07 Pain Scale Pain Intensity 8 - Physical Exam General Appearance: no apparent distress, alert Eye Exam: PERRL/EOMI, eyes nml inspection Ears, Nose, Throat Exam: normal ENT inspection, pharynx normal, moist mucous membranes Neck Exam: normal inspection, non-tender, supple, full range of motion Respiratory Exam: normal breath sounds, lungs clear, No respiratory distress Cardiovascular Exam: regular rate/rhythm, normal heart sounds Gastrointestinal/Abdomen Exam: soft, No tenderness, No mass Back Exam: normal inspection, normal range of motion, No CVA tenderness, No vertebral tenderness Extremity Exam: normal inspection, normal range of motion, pelvis stable Neurologic Exam: alert, oriented x 3, cooperative, normal mood/affect, nml cerebellar function, sensation nml, No motor deficits Skin Exam: normal color, warm, dry SpO2: 100 Oxygen Delivery: Aerosol Mask - Course Nursing assessment & vital signs reviewed: Yes - Radiology Exams Abdomen X-ray Interpretation: Reviewed by me, Negative (no acute changes) Ordered Tests: Active Orders 24 hr Category Date Time Status IV Insertion STAT Care 03/14/17 18:29 Active OBSTR/ACUTE ABDOMEN SERIES Stat Exams 03/14/17 18:10 Ordered AMYLASE Stat Lab 03/14/17 18:45 Received CBC W DIFF Stat Lab 03/14/17 18:45 Completed CMP Stat Lab 03/14/17 18:45 Received LIPASE Stat Lab 03/14/17 18:45 Received Medication Summary Generic Name Dose Route Start Last Admin Trade Name Freq PRN Reason Stop Dose Admin Sodium Chloride 1,000 mls @ 999 mls/hr 03/14/17 18:09 03/14/17 18:24 Sodium Chloride 0.9% 1000 Ml IV 03/14/17 19:09 999 mls/hr .[id number] STA Administration Discontinued Medications Generic Name Dose Route Start Last Admin Trade Name Freq PRN Reason Stop Dose Admin Sodium Chloride Confirm 03/14/17 18:14 Sodium Chloride 0.9% 1000 Ml Administered 03/14/17 18:15 Dose 1,000 mls @ ud .ROUTE .STK-MED ONE Lab/Rad Data: Laboratory Result Diagrams 03/14/17 18:45 Laboratory Results 03/14/17 Range/Units 18:45 WBC 7.1 (4.0-10.5) K/mm3 RBC 4.57 (4.1-5.4) M/mm3 Hgb 14.4 (12.0-16.0) gm/dl Hct 43.5 (35-47) % MCV 95.2 (78-100) fl MCH 31.5 (26-32) pg MCHC 33.1 (32-36) g/dl RDW 13.0 (11.5-14.0) % Plt Count 158 (150-450) K/mm3 MPV 10.1 H (6-9.5) fl Gran % 58.0 (36.0-66.0) % Lymphocytes % 29.6 (24.0-44.0) % Monocytes % 9.6 (0.0-12.0) % Eosinophils % 2.4 (0.00-5.0) % Basophils % 0.4 (0.0-0.4) % Basophils # 0.03 (0-0.4) - Progress Progress: improved, pain not gone completely Progress Note: 03/14/17 18:41 Patient is informed that all her abdominal pain and cramping is due to the bottle preparation cease taking it for her colonoscopy, which is a normal occurrence. She should stop taking MiraLAX and Dulcolax now and drink more Clear water until morning and should get her colonoscopy and EGD in the morning. Counseled pt/family regarding: lab results, diagnosis, need for follow-up, rad results - Departure Time of Disposition: 19:00 Departure Disposition: Home Clinical Impression: Abdominal pain Qualifiers: Abdominal location: generalized Qualified Code(s): R10.84 - Generalized abdominal pain Condition: Stable Critical Care Time: No Referrals: ESTER LEONARD [Primary Care Provider] - Instructions: Abdominal Pain-Adult Additional Instructions: All your abdominal pain and cramping is due to the bowel preparation taking it for her colonoscopy, which is a normal occurrence. She should stop taking MiraLAX and Dulcolax now and drink more Clear water until morning and should get her colonoscopy and EGD in the morning.
[2017-03-14 18:52] LABS: BASOPHIL % 0.4 % (0.0-0.4); Eosinophil % 2.4 % (0.00-5.0); Lymphocytes % 29.6 % (24.0-44.0); Mean Cell Volume 95.2 fl (78-100); Mean Corpuscular Hemoglobin 31.5 pg (26-32); Mean Platelet Volume 10.1 fl (6-9.5); Monocytes % 9.6 % (0.0-12.0); Platelet Count 158 K/mm3 (150-450); Red Blood Count 4.57 M/mm3 (4.1-5.4); White Blood Count 7.1 K/mm3 (4.0-10.5)
[2017-03-14 19:10] LABS: ALBUMIN 3.8 g/dL (3.4-5.0); ALKALINE PHOSPHATASE 46 U/L (46-116); ANION GAP 14.7 MEQ/L (5-15); BLOOD UREA NITROGEN 10 mg/dL (9-20); CHLORIDE 98 mEq/L (98-107); Carbon Dioxide 24.2 mEq/L (21-32); Glucose 95 MG/DL (70-110); LIPASE 140 U/L (73-393); Potassium 3.6 mEq/L (3.5-5.1); SGOT/AST 47 U/L (15-37); SGPT/ALT 89 U/L (12-78); SODIUM 133 mEq/L (136-145); Total Protein 7.8 gm/dL (6.4-8.2)
[2017-03-14 19:16] VITALS: BP 129/68; PULSE 109; O2SAT 98
--- NOTE | 2017-03-15 08:40 | XRAY ---
Indication: Abdominal pain. Comparison: Chest exam January 07, 2017. 2 views of the abdomen nonacute and nonobstructed. Known left renal micro-calculi. Remaining solid organs and osseous structures unremarkable. Single frontal chest again demonstrates normal heart, lungs, and bony thorax. Impression: 1. Known left renal micro-calculi. CT renal stone study may yield further information if there is concern for obstructive uropathy. 2. Stable normal 1 view chest.
== END 2017-03-14 19:17 | disposition home or self-care (01) ==
LOC: ED 18:02
DX: R10.84 Generalized abdominal pain (principal)
CPT/HCPCS: 36000; 36415; 74022; 80053; 82150; 83690; 85025; 96360; 99284

== ENCOUNTER 2017-03-15 09:22 | Day surgery (SDC) | payer OTHER ==
--- NOTE | 2017-03-15 08:14 | HP ---
DATE OF SURGERY: 03/15/2017 HISTORY OF PRESENT ILLNESS: The patient is a 41 year-old with some left upper quadrant pain back in May 2016. She has been in [facility] and they did some head work up but did not address her left sided pain at that time. She denied any bloody stools. She had been in [facility] when this originally happened apparently according to the patient. She had a cold. She had been on prednisone in the past. PAST MEDICAL HISTORY: Knee surgery. She had tubal. She had ablation in the past. She had some renal issues in the past according to the patient and some hypertension. MEDICATIONS: Carafate, gabapentin, dicyclomine, Lyrica, hydrochlorothiazide, lisinopril. ALLERGIES: BACTRIM. FAMILY HISTORY: Heart disease, cancer, diabetes. She did have family history of father having a bleeding ulcer. She is not sure whether her grandfather had colon cancer or not. SOCIAL HISTORY: One pack per day smoker, denies alcohol abuse. REVIEW OF SYSTEMS: Twelve systems reviewed per admission assessment pertinent for chronic left upper quadrant pain radiating downward. LAB DATA AND TESTS: She had a CT scan some wall thickening of the sigmoid colon but no kenyon diverticulitis. No stranding. PHYSICAL EXAMINATION: GENERAL: No acute distress. HEENT: Sclerae nonicteric. NECK: No JVD. CHEST: Equal excursion, nonlabored breathing. CVS: Regular rate and rhythm. ABDOMEN: Soft, some tenderness in the left upper quadrant. No peritoneal signs. No palpable hernia. EXTREMITIES: No significant edema. NEURO: Alert, moving extremities grossly symmetrically. IMPRESSION: Some chronic left sided pain unclear etiology. She also had some vague thickening of the sigmoid colon whether just simply due to diverticular hypertrophy, diverticular disease, hypertrophy or not is unclear but feel she would benefit from upper endoscopy to rule out gastritis, esophagitis, peptic ulcer disease versus other upper GI source as well as colonoscopy to evaluate for colitis or other etiology. She was shown the risk sheet and explained the procedure in detail but not limited to bleeding or infection, small risk of bowel injury or perforation possibly requiring open procedure, small risk of missed or nondiagnosis or incomplete exam possibly requiring barium enema other studies or procedures, general risk of anesthesia or sedation but not limited to. She understands and agrees to the planned procedure, will proceed with outpatient EGD and colonoscopy. She understands that if this is negative she may need to consider evaluation by pain specialist, consider back work up or other etiology and maybe even considering endoscopic ultrasound with a GI group. She understands all the above but not limited to, will proceed with EGD and colonoscopy as an outpatient.
[~2017-03-15 09:22] MED LIST: Lactated Ringers 1,000 ML IV ONE; Lactated Ringers 1,000 ML IV SCH
[2017-03-15] MEDS ORDERED: DIPRIVAN 200 MG/20 ML IV ONE (09:23)
[2017-03-15] MEDS ORDERED: Ketamine HCl 50 MG/ML IJ ONE (09:23)
[2017-03-15 12:51] VITALS: O2SAT 100
[2017-03-15 13:25] VITALS: BP 139/89; PULSE 69
--- NOTE | 2017-03-15 15:00 | OP ---
SURGERY DATE/TIME: 03/15/2017 1130 PREOPERATIVE DIAGNOSIS: Chronic left-side abdominal pain unclear etiology. POSTOPERATIVE DIAGNOSES: 1) Erosive gastritis. 2) Somewhat poor bowel prep limiting the exam. 3) Proximal rectal polyp. 4) Small raised lesion sigmoid colon x2. 5) Small internal and external hemorrhoids. 6) Mild diverticulosis. 7) Somewhat tortuous colon. PROCEDURES: 1) EGD with cold biopsy of small bowel to evaluate for celiac sprue. 2) Cold biopsy of the antrum to evaluate for Helicobacter pylori. 3) Cold biopsy of the gastroesophageal junction to evaluate for normal variation of gastroesophageal junction versus very, very short segment of early Miguelangel's metaplasia, path pending. 4) Colonoscopy to terminal ileum. 5) Retrograde ileoscopy. 6) Random cold biopsy of ileum and colon to evaluate for microscopic ileitis or colitis. 7) Hot snare polypectomy small rectal polyp. 8) Hot biopsy of little small raised lesion versus hyperplastic lesion sigmoid colon x2. SURGEON: Dr. Nathanael Cavazos. ANESTHESIA: MAC. ESTIMATED BLOOD LOSS: Minimal. INDICATIONS: As noted above. Risks and benefits explained in detail and not limited to and consent obtained. DESCRIPTION OF PROCEDURE AND FINDINGS: The patient is taken to the endoscopy room. MAC anesthesia was introduced. After official time out and no disagreement with planned procedure, a bite block positioned. Video gastroscope was easily passed down the esophagus to the patent pylorus to the junction of the second and third portion of the duodenum. Given her symptom complaints cold biopsy taken of the small bowel to evaluate for celiac disease. There were no signs of any ulcers or kenyon inflammation in the proximal small bowel. The scope is pulled back into the stomach. She did have some mild erosive gastritis. No evidence of any ulcer, masses or other mucosal lesions. On retroflex there were no signs of any significant hiatal hernia on endoscopic view. The scope was straightened. Cold biopsy taken from the antrum to evaluate for Helicobacter pylori. Good hemostasis noted. Scope pulled back to gastroesophageal junction noted to be about 38 cm. Z-line was fairly crisp. Whether this was just normal variation but there was one edge where there was very short segment of early Garcia's versus just normal variation of gastroesophageal junction. Cold biopsy is taken of this area. Good hemostasis noted. The remainder of the esophagus grossly unremarkable. No signs of any masses or other mucosal lesions on withdrawal of the scope. The scope is withdrawn. Attention is then turned to the colonoscopy exam. Digital rectal exam did not reveal any rectal masses. She did have some small internal and external hemorrhoids. Video colonoscope inserted and passed up the mildly tortuous, somewhat tortuous sigmoid, descending, transverse colon. With external pressure the scope was able to be passed around to the cecum and terminal ileum and up into the ileum. Retrograde ileoscopy was performed. Ileum was grossly unremarkable given her symptom complaints. However cold biopsy taken to evaluate for microscopic ileitis versus inflammatory bowel disease. Good hemostasis noted. Scope pulled back. Prep overall was somewhat poor. There was liquidy semi-solid stool that required irrigating and suctioning copious amount but still limited the exam for small lesions. On withdrawal of the scope there were no signs of any large polyps, masses or obstructing lesions. Some random cold biopsies taken throughout the colon to evaluate for microscopic colitis. She had some mild diverticulosis in the left colon with a little bit of thickening of the haustra that is typical for diverticular disease but no evidence of any kenyon macroscopic colitis. Random cold biopsies taken throughout the colon to evaluate for microscopic colitis. Back in the sigmoid colon area very small vague raised area in a couple locations removed with hot biopsy forceps. Whether this was just simple early hyperplastic polyp versus hyperplastic lesion versus early true polyp or hyperplasia of mucosa was removed with hot biopsy forceps with brief bursts of cautery. Good hemostasis noted. Otherwise there was more of an adenomatous appearing polyp in the proximal rectum about 15 to 16 cm, this is about 3 mm or less polyp removed with hot snare polypectomy with brief bursts of cautery. Good hemostasis noted. Otherwise had some internal and external hemorrhoids. There were no signs of any large polyps, masses or obstructing lesions. The scope is withdrawn. The patient tolerated the procedure well. There were no immediate complications. If path is benign she may need to follow up with a pain specialist given her chronic aches and pains.
== END 2017-03-15 13:15 | disposition home or self-care (01) ==
LOC: SDC 09:22
PROVIDERS: ATTEND Surgery
PROC: 0DB48ZX Excision of Esophagogastric Junction, Via Natural or Artificial Opening Endoscopic, Diagnostic (ICD-10-PCS; principal; 2017-03-15)
PROC: 0DB88ZX Excision of Small Intestine, Via Natural or Artificial Opening Endoscopic, Diagnostic (ICD-10-PCS; 2017-03-15)
PROC: 0DB78ZX Excision of Stomach, Pylorus, Via Natural or Artificial Opening Endoscopic, Diagnostic (ICD-10-PCS; 2017-03-15)
PROC: 0DBB8ZX Excision of Ileum, Via Natural or Artificial Opening Endoscopic, Diagnostic (ICD-10-PCS; 2017-03-15)
PROC: 0DBF8ZX Excision of Right Large Intestine, Via Natural or Artificial Opening Endoscopic, Diagnostic (ICD-10-PCS; 2017-03-15)
PROC: 0DBG8ZX Excision of Left Large Intestine, Via Natural or Artificial Opening Endoscopic, Diagnostic (ICD-10-PCS; 2017-03-15)
PROC: 0DBP8ZX Excision of Rectum, Via Natural or Artificial Opening Endoscopic, Diagnostic (ICD-10-PCS; 2017-03-15)
PROC: 0DBN8ZX Excision of Sigmoid Colon, Via Natural or Artificial Opening Endoscopic, Diagnostic (ICD-10-PCS; 2017-03-15)
DX: K29.00 Acute gastritis without bleeding (principal); K62.1 Rectal polyp; K64.4 Residual hemorrhoidal skin tags; K64.8 Other hemorrhoids; K57.90 Diverticulosis of intestine, part unspecified, without perforation or abscess without bleeding; Q43.8 Other specified congenital malformations of intestine
CPT/HCPCS: 00740; 00810; J2704

== ENCOUNTER 2017-08-18 10:42 | Day surgery (SDC) | payer OTHER ==
[2012-03-07 14:34] VITALS: BP 152/100
[2017-08-18] MEDS ORDERED: Xylocaine-Mpf 2 ML IJ ONE ×2 (10:43)
[2017-08-18] MEDS ORDERED: solu-MEDROL 40 MG IV ONE (10:43)
[2017-08-18] MEDS ORDERED: DEXAMETHASONE 10 MG/ML VIAL PF IJ ONE (10:43)
[2017-08-18] MEDS ORDERED: Lactated Ringers 1,000 ML IV ONE (10:43)
--- NOTE | 2017-08-18 13:32 | XRAY ---
15 seconds fluoroscopy time in surgery for right SI joint injection.
--- NOTE | 2017-08-18 13:33 | XRAY ---
Indication: Right SI joint injection. Intraoperative fluoroscopy was provided for 15 seconds. 1 digital spot image submitted for interpretation demonstrates a posterior spinal needle tip projecting in the inferior right SI joint. Correlate with intraoperative findings/report.
--- NOTE | 2017-08-19 09:05 | OP ---
DATE OF PROCEDURE: 08/18/2017 1247 SURGEON: Destiny Brennan D.O. PREOPERATIVE DIAGNOSES: Degenerative changes of Sacroiliac joint (SIJ), lower back pain. POSTOPERATIVE DIAGNOSES: Degenerative changes of Sacroiliac joint (SIJ), lower back pain. PROCEDURES PERFORMED: Right sacroiliac joint steroid injection under fluoroscopic guidance. DESCRIPTION OF PROCEDURE: The patient was taken to the operating room and laid in the prone position on the table. The skin over the injection site was prepped and draped in sterile fashion. Under fluoroscope bony anatomy at the targeted injection site was visualized. Induction agent was given as per anesthesia while vital signs were monitored. Local anesthetic agent was introduced to anesthetize the skin in the subcutaneous tissue through injection site. Under fluoroscopic guidance a standard spinal needle was advanced into the target SI joint through an oblique approach and 1 cc of preservative Decadron was injected into the SI joint accordingly. While the needle was being removed normal saline was simultaneously infiltrated to avoid sterile needle tract. Skin was cleansed with alcohol and then a bandage was applied. No complications or adverse consequences were observed. The patient was returned to the holding area until stabilized before discharge to home. After the procedure the pain level was 1 out of 10, before the procedure the pain level was 7 out of 10. The patient will be followed up within ten days after the injection for reevaluation.
== END 2017-08-18 13:32 | disposition home or self-care (01) ==
LOC: SDC-PAIN 10:42
PROVIDERS: ATTEND Internal Medicine
DX: M46.1 Sacroiliitis, not elsewhere classified (principal); M54.5 Low back pain; M46.96 Unspecified inflammatory spondylopathy, lumbar region; Z79.891 Long term (current) use of opiate analgesic
CPT/HCPCS: 27096; 72020; 77003; J2920; G0260; J1100

== ENCOUNTER 2017-09-20 11:29 | Emergency (ER) | payer OTHER ==
[2017-09-20 12:07] VITALS: BP 169/98; PULSE 75; O2SAT 98
== END 2017-09-20 13:07 | disposition left against medical advice (07) ==
LOC: ED 11:29
DX: M79.671 Pain in right foot (principal); M25.571 Pain in right ankle and joints of right foot; V89.2XXS Person injured in unspecified motor-vehicle accident, traffic, sequela
CPT/HCPCS: 99283; G0463

== ENCOUNTER 2020-07-17 10:55 | Emergency (ER) | payer OTHER ==
[2020-07-17] MEDS ORDERED: Sodium Chloride 0.9% 1000 ML 1,000 ML IV STA (11:17)
[2020-07-17] MEDS ORDERED: TORAdol 30 mg Injection IV ONE (11:17)
[2020-07-17] MEDS ORDERED: TORAdol 30 mg Injection ONE (11:19)
[2020-07-17] MEDS ORDERED: Sodium Chloride 0.9% 1000 ML 1,000 ML ONE (11:20)
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
[2020-07-17 12:00] LABS: ALBUMIN 4.1 g/dL (3.5-5.0); ALKALINE PHOSPHATASE 76 U/L (38-126); ANION GAP 13.3 MEQ/L (5-15); BLOOD UREA NITROGEN 16 mg/dL (7-17); CHLORIDE 99 mmol/L (98-107); Carbon Dioxide 28 mmol/L (22-30); Creatinine 1 0.81 mg/dL (0.52-1.04); EST GLOMERULAR FILTRATION RATE > 60.0 ML/MIN; Glucose 110 mg/dL (74-106); SGOT/AST 39 U/L (14-36); SGPT/ALT 71 U/L (0-35); SODIUM 136 mmol/L (137-145)
[2020-07-17 12:08] LABS: Absolute Neutrophil Ct (ANC) 6.07 (1.4-6.9); BASOPHIL % 0.2 % (0.0-0.4); Basophil (Absolute #) 0.02 (0-0.4); Eosinophil % 1.3 % (0.00-5.0); Eosinophil (Absolute #) 0.11 (0-0.5); Hematocrit 38.9 % (35-47); Hemoglobin 12.5 gm/dl (12.0-16.0); Lymphocyte (Absolute #) 1.29 (1.0-4.6); Lymphocytes % 15.4 % (24.0-44.0); Mean Cell Volume 96.8 fl (78-100); Mean Corpuscular Hemoglobin 31.1 pg (26-32); Mean Corpuscular Hgb Concent. 32.1 g/dl (32-36); Mean Platelet Volume 10.1 fl (7.5-11.0); Monocyte (Absolute #) 0.86 (0.0-1.3); Monocytes % 10.3 % (0.0-12.0); Neutrophil % 72.8 % (36.0-66.0); Platelet Count 100 K/mm3 (150-450); Red Blood Count 4.02 M/mm3 (4.1-5.4); White Blood Count 8.4 K/mm3 (4.0-10.5)
--- NOTE | 2020-07-17 12:10 | XRAY ---
Indication: Abdomen/left flank pain. Multiple contiguous axial images obtained through the abdomen and pelvis without contrast. Comparison: February 26, 2017. Lung bases again demonstrates minimal atelectasis/scarring without infiltrate or effusion. Heart is not enlarged. Noncontrasted stomach and bowel loops nonobstructed. Normal appendix. There remains mild sigmoid diverticulosis without diverticulitis. There is been interval cholecystectomy. Liver remains enlarged measuring 20.8 cm with stable hepatic cysts. No free fluid/air. Again bilateral polycystic kidneys and multiple bilateral renal micro-calculi. New 1.5 x 0.8 cm left UPJ calculus producing mild hydronephrosis and renal edema. Remaining liver, pancreas, spleen, adrenal glands, ureters, bladder, and uterus appear unremarkable for noncontrast exam. Increasing mild scattered aortoiliac calcifications without AAA. New enlarged periaortic lymph nodes, largest left periaortic inferior to the renal vessels measuring 1.2 x 2.1 cm. Osseous structures intact again with minimal degenerative changes throughout the thoracolumbar spine. New bilateral L4-L5 facet screws. Impression: 1. New 1.5 cm left UPJ calculus producing obstructive uropathy. 2. Stable bilateral polycystic kidneys with multiple bilateral micro-calculi. 3. New enlarged periaortic lymph nodes presumed reactive. 4. Interval cholecystectomy and L4-L5 posterior fusion without obvious complications. 5. Again incidental sigmoid diverticulosis, hepatomegaly, and hepatic cysts.
[2020-07-17 12:14] LABS: Appearance TURBID (CLEAR); Bacteria MODERATE /HPF (NEGATIVE); Bilirubin NEGATIVE (NEGATIVE); Blood MODERATE Ery/ul (0-5); Glucose NEGATIVE (NEGATIVE); Ketones NEGATIVE (NEGATIVE); Leukocyte Esterase LARGE (NEGATIVE); Nitrite NEGATIVE (NEGATIVE); Protein,Urine Dip 100 (Negative); RBC 26-50 /HPF (0-2); Specific Gravity 1.019 (1.005-1.025); Urobilinogen 2 mg/dL (0-1); WBC >100 /HPF (0-5)
[2020-07-17 12:22] LABS: Potassium 4.4 mmol/L (3.5-5.1)
[2020-07-17] MEDS ORDERED: MORPHINE SULFATE 4 MG INJ IV ONE (12:44)
[2020-07-17] MEDS ORDERED: ROCEPHIN 1 Gm-D5w 50 ml Bag** 1 G/50 ML IVPB IV STA (12:45)
[2020-07-17] MEDS ORDERED: MORPHINE SULFATE 4 MG INJ ONE (12:46)
[2020-07-17] MEDS ORDERED: ROCEPHIN 1 Gm-D5w 50 ml Bag** 1 G/50 ML IVPB IV ONE (12:48)
[2020-07-17] MEDS ORDERED: SUBLIMAZE 100 MCG/2 ML IV ONE (14:26)
[2020-07-17] MEDS ORDERED: SUBLIMAZE 100 MCG/2 ML ONE (14:27)
[2020-07-17 14:32] VITALS: BP 184/121; PULSE 80; O2SAT 97
== END 2020-07-17 14:41 | disposition short-term general hospital (02) ==
LOC: ED 10:55
DX: N20.0 Calculus of kidney (principal); N21.1 Calculus in urethra; N13.30 Unspecified hydronephrosis; N04.9 Nephrotic syndrome with unspecified morphologic changes; Q61.3 Polycystic kidney, unspecified; N28.1 Cyst of kidney, acquired; K57.90 Diverticulosis of intestine, part unspecified, without perforation or abscess without bleeding; R59.1 Generalized enlarged lymph nodes; Z79.899 Other long term (current) drug therapy; R10.9 Unspecified abdominal pain; R11.2 Nausea with vomiting, unspecified; R19.7 Diarrhea, unspecified
CPT/HCPCS: 36000; 36415; 74176; 80053; 81001; 84484; 85025; 87077; 87086; 87186; 96360; 96365; 96374; 96375; 99285; J0696; J1885; J2270; J3010

== ENCOUNTER 2020-09-14 12:08 | Emergency (ER) | payer OTHER ==
[2020-09-14] MEDS ORDERED: solu-MEDROL 125 MG IM ONE (12:32)
[2020-09-14] MEDS ORDERED: DUONEB 0.5-3 MG/3 ml Neb IH ONE ×2 (12:32→12:38)
[2020-09-14] MEDS ORDERED: solu-MEDROL 125 MG ONE (12:39)
[2020-09-14 12:52] LABS: Hemoglobin 13.6 gm/dl (12.0-16.0); Mean Corpuscular Hemoglobin 31.4 pg (26-32); Mean Corpuscular Hgb Concent. 32.4 g/dl (32-36); Mean Platelet Volume 10.4 fl (7.5-11.0); Platelet Count 108 K/mm3 (150-450); Red Blood Count 4.33 M/mm3 (4.1-5.4); Red Cell Distribution Width 14.7 % (11.5-14.0); White Blood Count 6.1 K/mm3 (4.0-10.5)
[2020-09-14 12:55] LABS: ALBUMIN 4.4 g/dL (3.5-5.0); ALKALINE PHOSPHATASE 84 U/L (38-126); ANION GAP 14.7 MEQ/L (5-15); BLOOD UREA NITROGEN 17 mg/dL (7-17); CHLORIDE 97 mmol/L (98-107); Calcium 9.2 mg/dL (8.4-10.2); Carbon Dioxide 24 mmol/L (22-30); Creatinine 1 0.86 mg/dL (0.52-1.04); EST GLOMERULAR FILTRATION RATE > 60.0 ML/MIN; Glucose 95 mg/dL (74-106); Potassium 3.6 mmol/L (3.5-5.1); SGOT/AST 105 U/L (14-36); SGPT/ALT 92 U/L (0-35); SODIUM 132 mmol/L (137-145)
[2020-09-14 13:03] LABS: BAND 12 % (0.0-2.0); Eosinophil 1 % (0.00-3.0); Lymphocytes 13 % (24-44); Monocyte 11 % (0.0-12.0); Neutrophils 63 % (36.0-66.0); Platelet Estimate DECREASED (NORMAL); Total Cells Counted 100
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
[2020-09-14] MEDS ORDERED: TORAdol 30 mg Injection IM ONE (13:21)
[2020-09-14] MEDS ORDERED: TORAdol 30 mg Injection ONE ×2 (13:28→13:30)
[2020-09-14 14:54] VITALS: O2SAT 95
[2020-09-14] MEDS ORDERED: LEVOFLOXACIN 750MG/150ML D5W 750 MG/150 ML BAG IV STA (14:56)
[2020-09-14] MEDS ORDERED: SODIUM CHLORIDE 0.9% IV ONE (14:56)
[2020-09-14] MEDS ORDERED: ROCEPHIN IV ONE (14:56)
[2020-09-14] MEDS ORDERED: ROCEPHIN 1 Gm-D5w 50 ml Bag** 1 G/50 ML IVPB IV ONE (15:13)
[2020-09-14 15:24] VITALS: BP 126/107; PULSE 94
[2020-09-14] MEDS ORDERED: LEVOFLOXACIN 750MG/150ML D5W 750 MG/150 ML BAG IV ONE (15:27)
--- NOTE | 2020-09-14 19:38 | XRAY ---
Indication: Cough. Right chest pain. Multiple contiguous axial images obtained through the chest without contrast. Comparison: None There is near-complete right middle lobe and very minimal inferior right upper lobe consolidating airspace disease without effusion. Minimal lingula and bibasilar fibrosis/scarring. Heart is not enlarged. Aorta is normal in course and caliber. No pathologic mediastinal lymphadenopathy. Bony thorax intact with minimal degenerative changes of the spine and tiny multilevel small nodes. CT abdomen/pelvis reported separately. Impression: Right middle and lesser degree right upper lobe consolidating airspace disease. Comment: Preliminary interpretation was made by [facility]. No critical discrepancy.
--- NOTE | 2020-09-14 19:38 | XRAY ---
Indication: Cough. Right chest/abdomen pain. Multiple contiguous axial images obtained through the abdomen and pelvis without contrast. Comparison: July 17, 2020. CT chest reported separately. Noncontrasted stomach and bowel loops remain nonobstructed. Normal appendix. Stable sigmoid diverticulosis, cholecystectomy, 20.8 cm fatty hepatomegaly, hepatic cysts, bilateral polycystic kidneys, and multiple bilateral renal micro-calculi. No hydronephrosis or hydroureter. Remaining pancreas, spleen, adrenal glands, bladder, and uterus appear unremarkable for noncontrast exam. Stable mild aortoiliac calcifications without AAA. Previous periaortic lymph nodes appear stable to smaller in size. Osseous structures intact again with minimal degenerative changes throughout the spine and bilateral L4-L5 facet screws. Impression: 1. Stable bilateral polycystic kidneys with multiple bilateral renal micro-calculi, sigmoid diverticulosis, fatty hepatomegaly, hepatic cysts, and chronic bony findings. 2. Remaining CT abdomen/pelvis without contrast exam is negative. Comment: Preliminary interpretation was made by [facility]. No critical discrepancy.
--- NOTE | 2020-09-14 19:40 | XRAY ---
Indication: Right chest pain. Cough. Comparison: March 14, 2017. PA/lateral chest demonstrates right middle lobe and lesser degree inferior right upper lobe consolidating airspace disease. Remaining heart, left lung, and bony thorax normal.
== END 2020-09-14 16:14 | disposition critical access hospital (66) ==
LOC: ED 12:08
DX: J13 Pneumonia due to Streptococcus pneumoniae (principal); N28.9 Disorder of kidney and ureter, unspecified; B19.20 Unspecified viral hepatitis C without hepatic coma; I10 Essential (primary) hypertension; Z79.899 Other long term (current) drug therapy
CPT/HCPCS: 36415; 71046; 71250; 74176; 80053; 85025; 94640; 96365; 96368; 96372; 96374; 99285; 99291; J0696; J1885; J1956; J2930; A9270-GY

== ENCOUNTER 2021-07-08 10:31 | Emergency (ER) | payer OTHER ==
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
[2021-07-08 10:54] VITALS: BP 129/85; PULSE 105; O2SAT 94
--- NOTE | 2021-07-08 11:29 | XRAY ---
Indication: Cough. COPD. Comparison: September 14, 2020. Portable chest now demonstrates normal heart, lungs, and bony thorax.
== END 2021-07-08 12:39 | disposition home or self-care (01) ==
LOC: ED 10:31
DX: J20.9 Acute bronchitis, unspecified (principal); Z72.0 Tobacco use; R05.1 Acute cough; Q61.3 Polycystic kidney, unspecified; B19.20 Unspecified viral hepatitis C without hepatic coma; I10 Essential (primary) hypertension; Z79.52 Long term (current) use of systemic steroids; Z79.899 Other long term (current) drug therapy
CPT/HCPCS: 71045; 99283

== ENCOUNTER 2021-09-02 07:50 | Emergency (ER) | payer OTHER ==
[2021-09-02] MEDS ORDERED: Sodium Chloride 0.9% 1000 ML 1,000 ML IV STA (08:18)
[2021-09-02] MEDS ORDERED: TORAdol 30 mg Injection IV ONE (08:21)
[2021-09-02] MEDS ORDERED: TORAdol 30 mg Injection ONE (08:33)
[2021-09-02] MEDS ORDERED: Sodium Chloride 0.9% 1000 ML 1,000 ML ONE (08:33)
[2021-09-02 08:53] LABS: Bacteria RARE /HPF (NEGATIVE)
[2021-09-02 08:53] LABS: Absolute Neutrophil Ct (ANC) 6.26 (1.4-6.9); Basophil (Absolute #) 0.01 (0-0.4); Eosinophil % 0.8 % (0.00-5.0); Eosinophil (Absolute #) 0.07 (0-0.5); Hematocrit 36.7 % (35-47); Hemoglobin 12.2 gm/dl (12.0-16.0); Lymphocyte (Absolute #) 0.76 (1.0-4.6); Lymphocytes % 9.2 % (24.0-44.0); Mean Cell Volume 97.6 fl (78-100); Mean Corpuscular Hemoglobin 32.4 pg (26-32); Mean Corpuscular Hgb Concent. 33.2 g/dl (32-36); Mean Platelet Volume 11.6 fl (7.5-11.0); Monocyte (Absolute #) 1.14 (0.0-1.3); Monocytes % 13.8 % (0.0-12.0); Neutrophil % 76.1 % (36.0-66.0); Platelet Count 66 K/mm3 (150-450); Red Blood Count 3.76 M/mm3 (4.1-5.4); Red Cell Distribution Width 14.2 % (11.5-14.0); White Blood Count 8.2 K/mm3 (4.0-10.5)
[2021-09-02 08:54] LABS: Appearance CLEAR (CLEAR); Bilirubin NEGATIVE (NEGATIVE); Glucose NEGATIVE (NEGATIVE); Ketones NEGATIVE (NEGATIVE); Nitrite NEGATIVE (NEGATIVE); Protein,Urine Dip 30 (Negative); RBC SMALL Ery/ul (0-5); Specific Gravity 1.015 (1.005-1.025); Urobilinogen 0.2 mg/dL (0-1)
[2021-09-02 08:55] LABS: Dipstick done @ ? MAIN LAB; Urine Cultured Indicated? NO
[2021-09-02 09:01] LABS: ALBUMIN 3.4 g/dL (3.5-5.0); BILIRUBIN,TOTAL 0.7 mg/dL (0.2-1.3); Calcium 8.2 mg/dL (8.4-10.2); Creatinine 1 1.06 mg/dL (0.52-1.04); EST GLOMERULAR FILTRATION RATE 58.8 ML/MIN; Potassium 4.2 mmol/L (3.5-5.1)
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
--- NOTE | 2021-09-02 09:40 | XRAY ---
Indication: Left flank pain. Multiple contiguous axial images obtained through the abdomen and pelvis without contrast using renal stone protocol. Comparison: September 14, 2020. Lung bases clear. Heart not enlarged. New 8-9 mm proximal left ureter calculus, approximately L4 level. Left kidney is now edematous with moderate hydronephrosis consistent with high-grade obstructive uropathy. Left renal calyces also demonstrates new air bubbles concerning for gas-forming bacterial infection. There still remains multiple bilateral renal micro-calculi left greater than right. Noncontrasted stomach and bowel loops remain nonobstructed. Normal appendix. Stable sigmoid diverticulosis, cholecystectomy, 20 cm fatty hepatomegaly, hepatic cysts, and bilateral polycystic kidneys. Remaining pancreas, spleen, adrenal glands, bladder, and uterus appear unremarkable for noncontrast exam. Stable mild aortoiliac calcifications without AAA. Previous periaortic lymph nodes have slightly increased in size, largest inferior to left renal artery measuring 1.3 x 2.2 cm, previously 0.9 x 1.7 cm. Osseous structures intact again with minimal degenerative changes throughout the spine and bilateral L4-L5 facet screws. Impression: 1. New 8-9 mm proximal left ureter calculus producing high-grade obstruction as detailed. Also air bubbles in the left renal calyces concerning for gas-forming bacterial infection. 2. Slightly enlarging prominent periaortic lymph nodes presumed reactive. 3. Stable bilateral polycystic kidneys with multiple bilateral renal micro-calculi, sigmoid diverticulosis, fatty hepatomegaly, hepatic cysts, and chronic bony findings.
[2021-09-02] MEDS ORDERED: VANCOMYCIN 1 GRAM/200 ML BAG 1 GM/200 ML PIGGYBACK IV ONE ×2 (09:52→12:21)
[2021-09-02] MEDS ORDERED: PIPERACILLIN/TAZOBACTAM 3.375 GM in Sodium Chloride 100ML MINI-BAG PLUS 100 ML IV ONE (09:53)
[2021-09-02] MEDS ORDERED: Sodium Chloride 100ML MINI-BAG PLUS 0 ML IV ONE (10:02)
[2021-09-02] MEDS ORDERED: PIPERACILLIN/TAZOBACTAM IV ONE (10:02)
[2021-09-02] MEDS ORDERED: Hydromorphone 1 mg/ml Injection IV ONE (10:03)
[2021-09-02] MEDS ORDERED: Sodium Chloride 0.9% 100 ML BAG 0 ML ONE (10:04)
[2021-09-02] MEDS ORDERED: Sodium Chloride 100ML MINI-BAG PLUS 100 ML IV ONE (10:04)
[2021-09-02] MEDS ORDERED: Hydromorphone 1 mg/ml Injection ONE (10:05)
[2021-09-02 10:27] LABS: Eosinophil 2 % (0.00-3.0); Lymphocytes 8 % (24-44); Monocyte 12 % (0.0-12.0); Platelet Estimate NORMAL (NORMAL); Total Cells Counted 100
[2021-09-02 12:15] VITALS: BP 168/70; PULSE 94
[2021-09-02 12:29] VITALS: O2SAT 97
== END 2021-09-02 12:48 | disposition short-term general hospital (02) ==
LOC: ED 07:50
DX: N13.2 Hydronephrosis with renal and ureteral calculous obstruction (principal); R10.32 Left lower quadrant pain; E87.1 Hypo-osmolality and hyponatremia; D69.6 Thrombocytopenia, unspecified; N04.9 Nephrotic syndrome with unspecified morphologic changes; K57.30 Diverticulosis of large intestine without perforation or abscess without bleeding; K76.0 Fatty (change of) liver, not elsewhere classified; K76.89 Other specified diseases of liver; Q61.3 Polycystic kidney, unspecified; I70.0 Atherosclerosis of aorta; M47.819 Spondylosis without myelopathy or radiculopathy, site unspecified; M48.00 Spinal stenosis, site unspecified; R59.0 Localized enlarged lymph nodes; R11.2 Nausea with vomiting, unspecified; Z87.442 Personal history of urinary calculi; I10 Essential (primary) hypertension; Z72.0 Tobacco use; Z79.891 Long term (current) use of opiate analgesic; Z79.899 Other long term (current) drug therapy
CPT/HCPCS: 36000; 36415; 74176; 80053; 81015; 83690; 84703; 85025; 96360; 96365; 96367; 96374; 99285; J1170; J1885; J3370

== ENCOUNTER 2022-06-15 08:01 | Emergency (ER) | payer OTHER ==
[2022-06-15] MEDS ORDERED: Sodium Chloride 0.9% 1000 ML 1,000 ML IV STA (08:59)
[2022-06-15] MEDS ORDERED: MORPHINE SULFATE 4 MG INJ IV ONE ×2 (09:00→10:49)
[2022-06-15] MEDS ORDERED: MORPHINE SULFATE 4 MG INJ ONE ×2 (09:02→10:57)
[2022-06-15] MEDS ORDERED: Sodium Chloride 0.9% 1000 ML 1,000 ML ONE (09:02)
[2022-06-15 09:15] LABS: Absolute Neutrophil Ct (ANC) 3.79 x10^3/uL (1.4-6.9); BASOPHIL % 0.9 % (0.0-0.4); Basophil (Absolute #) 0.05 x10^3/uL (0-0.4); Eosinophil % 2.4 % (0.00-5.0); Eosinophil (Absolute #) 0.13 x10^3/uL (0-0.5); Hematocrit 43.8 % (35-47); Hemoglobin 14.3 g/dL (12.0-16.0); IMMATURE GRAN # 0.02 x10^3u/L (0.00-0.03); IMMATURE GRAN % 0.4 % (0.00-0.4); Lymphocyte (Absolute #) 1.05 x10^3/uL (1.0-4.6); Lymphocytes % 19.4 % (24.0-44.0); Mean Cell Volume 100.5 fL (78-100); Mean Corpuscular Hemoglobin 32.8 pg (26-32); Mean Corpuscular Hgb Concent. 32.6 g/dL (32-36); Monocyte (Absolute #) 0.36 x10^3/uL (0.0-1.3); Monocytes % 6.7 % (0.0-12.0); Neutrophil % 70.2 % (36.0-66.0); Platelet Count 124 x10^3/uL (150-450); Red Blood Count 4.36 x10^6/uL (4.1-5.4); Red Cell Distribution Width 15.1 % (11.5-14.0); White Blood Count 5.4 x10^3/uL (4.0-10.5)
[2022-06-15 09:26] LABS: Appearance Clear (Clear); Bacteria Many /HPF (None Seen); Bilirubin Negative (Negative); Blood Trace (Negative); Epithelial Cells None Seen /HPF (None Seen); Glucose, Urine Negative (Negative); Hyaline Casts NONE SEEN /LPF (0-2); Ketones Negative (Negative); Leukocyte Esterase Small (Negative); Nitrite Negative (Negative); Ph 6.5 (4.6-8.0); Protein,Urine Dip 300 (Negative); WBC 21-50 /HPF (0-5)
[2022-06-15 09:27] LABS: ADD URINE CULTURE? YES (NO)
[2022-06-15 09:31] LABS: ALBUMIN 4.7 g/dL (3.5-5.0); ALKALINE PHOSPHATASE 99 U/L (38-126); ANION GAP 16.6 MEQ/L (5-15); BLOOD UREA NITROGEN 12 mg/dL (7-17); CHLORIDE 102 mmol/L (98-107); Calcium 9.7 mg/dL (8.4-10.2); Carbon Dioxide 24 mmol/L (22-30); Creatinine 1 0.68 mg/dL (0.52-1.04); EST GLOMERULAR FILTRATION RATE > 60.0 ML/MIN; Glucose 117 mg/dL (74-106); LIPASE 149 U/L (23-300); Potassium 4.1 mmol/L (3.5-5.1); SGOT/AST 231 U/L (14-36); SGPT/ALT 177 U/L (0-35); SODIUM 139 mmol/L (137-145); Total Protein 8.6 g/dL (6.3-8.2)
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
--- NOTE | 2022-06-15 10:15 | XRAY ---
Indication: Left flank pain and hematuria 1 week. Bloating. Multiple contiguous axial images obtained through the abdomen and pelvis without contrast using renal stone protocol. Comparison: September 02, 2021 Lung bases clear. Heart is not enlarged. Both kidneys again demonstrates polycystic kidneys and nonobstructing micro-calculi, left greater than right. No calculus in either ureters/bladder or evidence for obstructive uropathy. Noncontrasted stomach and bowel loops nonobstructed with normal appendix. Again scattered colonic diverticulosis without diverticulitis. Cul-de-sac demonstrates new small free fluid presumed physiologic from rupture/leaking cyst. Again 22.6 cm fatty hepatomegaly and cholecystectomy. Remaining liver, pancreas, spleen, adrenal glands, kidneys, ureters, bladder, and uterus are unremarkable for noncontrast exam. There remains mild scattered aortoiliac calcifications without AAA. Osseous structures intact again with minimal degenerative changes throughout the spine and bilateral L4-L5 facet screws. Impression: 1. Nonobstructing bilateral renal micro-calculi with polycystic kidney disease. Negative for obstructive uropathy. 2. Again chronic findings including colonic diverticulosis, fatty hepatomegaly, arteriosclerotic disease, and chronic bony findings.
[2022-06-15] MEDS ORDERED: ROCEPHIN 1 Gm-D5w 50 ml Bag** 1 G/50 ML IVPB IV STA (10:47)
[2022-06-15] MEDS ORDERED: ROCEPHIN 1 Gm-D5w 50 ml Bag** 1 G/50 ML IVPB IV ONE (10:48)
[2022-06-15] MEDS ORDERED: NORVASC 5 MG PO ONE (11:06)
[2022-06-15] MEDS ORDERED: NORVASC 5 MG ONE (11:07)
[2022-06-15 11:16] VITALS: BP 200/125; PULSE 78; O2SAT 98
== END 2022-06-15 12:03 | disposition home or self-care (01) ==
LOC: ED 08:01
DX: N39.0 Urinary tract infection, site not specified (principal); R80.9 Proteinuria, unspecified; Q61.3 Polycystic kidney, unspecified; N20.0 Calculus of kidney; K57.30 Diverticulosis of large intestine without perforation or abscess without bleeding; K76.0 Fatty (change of) liver, not elsewhere classified; I70.0 Atherosclerosis of aorta; M47.9 Spondylosis, unspecified; R10.13 Epigastric pain; R10.9 Unspecified abdominal pain; I10 Essential (primary) hypertension; Z87.442 Personal history of urinary calculi; Z79.899 Other long term (current) drug therapy; Z28.310 Unvaccinated for COVID-19
CPT/HCPCS: 36000; 36415; 74176; 80053; 81001; 83690; 84484; 85025; 87077; 87086; 87186; 96360; 96365; 96374; 96376; 99284; J0696; J2270; A9270-GY

== ENCOUNTER 2022-11-24 11:18 | Emergency (ER) | payer OTHER ==
[2022-11-24 11:34] VITALS: TEMP 97.7
[2022-11-24] MEDS ORDERED: Zofran 4 MG/2 ML VIAL IV STA (12:04)
[2022-11-24] MEDS ORDERED: Sodium Chloride 0.9% 1000 ML 1,000 ML IV SCH (12:15)
[2022-11-24 12:27] LABS: Appearance Clear (Clear); Bacteria None Seen /HPF (None Seen); Bilirubin Negative (Negative); Blood Negative (Negative); Epithelial Cells Few /HPF (None Seen); Glucose, Urine Negative (Negative); Hyaline Casts NONE SEEN /LPF (0-2); Ketones Negative (Negative); Leukocyte Esterase Trace (Negative); Nitrite Negative (Negative); Protein,Urine Dip 100 (Negative); RBC 0-2 /HPF (0-5); WBC 0-2 /HPF (0-5)
[2022-11-24 12:30] LABS: ADD URINE CULTURE? NO (NO)
[2022-11-24 12:36] LABS: Absolute Neutrophil Ct (ANC) 4.47 x10^3/uL (1.4-6.9); Basophil (Absolute #) 0.07 x10^3/uL (0-0.4); Eosinophil % 1.6 % (0.00-5.0); Eosinophil (Absolute #) 0.11 x10^3/uL (0-0.5); Hematocrit 44.2 % (35-47); Hemoglobin 14.4 g/dL (12.0-16.0); IMMATURE GRAN # 0.05 x10^3u/L (0.00-0.03); IMMATURE GRAN % 0.7 % (0.00-0.4); Lymphocyte (Absolute #) 1.78 x10^3/uL (1.0-4.6); Lymphocytes % 25.9 % (24.0-44.0); Mean Cell Volume 101.4 fL (78-100); Mean Corpuscular Hgb Concent. 32.6 g/dL (32-36); Mean Platelet Volume 9.2 fL (7.5-11.0); Monocytes % 5.8 % (0.0-12.0); Platelet Count 197 x10^3/uL (150-450); Red Blood Count 4.36 x10^6/uL (4.1-5.4); Red Cell Distribution Width 14.9 % (11.5-14.0); White Blood Count 6.9 x10^3/uL (4.0-10.5)
[2022-11-24 12:49] LABS: ALBUMIN 4.6 g/dL (3.5-5.0); ALKALINE PHOSPHATASE 94 U/L (38-126); ANION GAP 21.3 MEQ/L (5-15); BLOOD UREA NITROGEN 9 mg/dL (7-17); CHLORIDE 97 mmol/L (98-107); Carbon Dioxide 26 mmol/L (22-30); Creatinine 1 0.76 mg/dL (0.52-1.04); EST GLOMERULAR FILTRATION RATE > 60.0 ML/MIN; Glucose 99 mg/dL (74-106); Potassium 3.5 mmol/L (3.5-5.1); SGOT/AST 229 U/L (14-36); SGPT/ALT 220 U/L (0-35); SODIUM 140 mmol/L (137-145); Total Protein 8.9 g/dL (6.3-8.2)
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
[2022-11-24] MEDS ORDERED: TORAdol 30 mg Injection IV ONE (12:52)
[2022-11-24] MEDS ORDERED: TORAdol 30 mg Injection ONE (12:54)
[2022-11-24] MEDS ORDERED: Xylocaine-Mpf 2% 5 Ml Vial ONE (12:54)
[2022-11-24] MEDS ORDERED: Zofran 4 MG/2 ML VIAL ONE (12:54)
[2022-11-24] MEDS ORDERED: Sodium Chloride 0.9% 1000 ML 1,000 ML ONE ×2 (12:54→14:26)
--- NOTE | 2022-11-24 13:40 | XRAY ---
Indication: Left flank pain and hematuria 1 week. Bloating. Multiple contiguous axial images obtained through the abdomen and pelvis without contrast using 80 cc Isovue 370 contrast. Comparison: November 18, 2022 Lung bases remain clear. Heart is not enlarged. Noncontrasted stomach and bowel loops nonobstructed again with normal appendix. Again scattered colonic diverticulosis without diverticulitis. No free fluid/air. Again bilateral polycystic kidney disease, nonobstructing bilateral renal micro-calculi, 22.6 cm fatty hepatomegaly, small nonspecific periaortic lymph nodes, and cholecystectomy. Remaining liver, pancreas, spleen, adrenal glands, kidneys, ureters, bladder, and uterus are unremarkable. There remains mild scattered aortoiliac calcifications without AAA. Osseous structures intact again with minimal degenerative changes throughout the spine and bilateral L4-L5 facet screws. Impression: No change compared to ER CT exam 6 days ago. Again chronic findings including colonic diverticulosis, polycystic kidney disease, nonobstructing bilateral renal micro-calculi, fatty hepatomegaly, small nonspecific periaortic nodes, arteriosclerotic disease, and chronic bony findings. No new/acute findings.
[2022-11-24] MEDS ORDERED: Sodium Chloride 0.9% 1000 ML 1,000 ML IV STA (14:26)
[2022-11-24] MEDS ORDERED: Ketamine HCl 50 MG/ML IV ONE (15:22)
[2022-11-24] MEDS ORDERED: Ketamine HCl 50 MG/ML ONE (15:29)
[2022-11-24 18:12] VITALS: BP 155/90; PULSE 70; RESP 18; O2SAT 96
== END 2022-11-24 18:15 | disposition short-term general hospital (02) ==
LOC: ED 11:18
DX: E87.20 Acidosis, unspecified (principal); R74.01 Elevation of levels of liver transaminase levels; R80.9 Proteinuria, unspecified; K57.90 Diverticulosis of intestine, part unspecified, without perforation or abscess without bleeding; Q61.3 Polycystic kidney, unspecified; N20.0 Calculus of kidney; R16.0 Hepatomegaly, not elsewhere classified; R10.2 Pelvic and perineal pain; R10.9 Unspecified abdominal pain; R11.2 Nausea with vomiting, unspecified; I10 Essential (primary) hypertension; Z79.899 Other long term (current) drug therapy; Z28.310 Unvaccinated for COVID-19; Z72.0 Tobacco use
CPT/HCPCS: 36410; 36415; 74177; 80053; 81001; 83605; 85025; 94760; 96360; 96374; 96375; 99285; J1885; J2405

== ENCOUNTER 2023-03-21 08:47 | Emergency (ER) | payer OTHER ==
[2023-03-21 09:10] LABS: Appearance Cloudy (Clear); Bacteria None Seen /HPF (None Seen); Bilirubin Moderate (Negative); Blood Negative (Negative); Epithelial Cells Rare /HPF (None Seen); Glucose, Urine Negative (Negative); Hyaline Casts NONE SEEN /LPF (0-2); Ketones Negative (Negative); Leukocyte Esterase Large (Negative); Nitrite Negative (Negative); Ph 7.5 (4.6-8.0); Protein,Urine Dip 30 (Negative); RBC 0-2 /HPF (0-5); Specific Gravity 1.015 (1.005-1.030); WBC >100 /HPF (0-5)
[2023-03-21] MEDS ORDERED: DUONEB 0.5-3 MG/3 ml Neb IH ONE ×2 (09:15)
[2023-03-21 09:22] LABS: ADD URINE CULTURE? YES (NO)
[2023-03-21 09:23] VITALS: TEMP 97.9
[2023-03-21 10:11] LABS: Absolute Neutrophil Ct (ANC) 5.19 x10^3/uL (1.4-6.9); BASOPHIL % 0.7 % (0.0-0.4); Basophil (Absolute #) 0.05 x10^3/uL (0-0.4); Eosinophil % 1.1 % (0.00-5.0); Eosinophil (Absolute #) 0.08 x10^3/uL (0-0.5); Hematocrit 35.8 % (35-47); Hemoglobin 10.9 g/dL (12.0-16.0); IMMATURE GRAN # 0.04 x10^3u/L (0.00-0.03); IMMATURE GRAN % 0.5 % (0.00-0.4); Lymphocyte (Absolute #) 1.27 x10^3/uL (1.0-4.6); Lymphocytes % 17.2 % (24.0-44.0); Mean Cell Volume 101.4 fL (78-100); Mean Corpuscular Hemoglobin 30.9 pg (26-32); Mean Corpuscular Hgb Concent. 30.4 g/dL (32-36); Mean Platelet Volume 10.4 fL (7.5-11.0); Monocyte (Absolute #) 0.77 x10^3/uL (0.0-1.3); Monocytes % 10.4 % (0.0-12.0); Neutrophil % 70.1 % (36.0-66.0); Platelet Count 272 x10^3/uL (150-450); Red Blood Count 3.53 x10^6/uL (4.1-5.4); Red Cell Distribution Width 17.7 % (11.5-14.0); White Blood Count 7.4 x10^3/uL (4.0-10.5)
[2023-03-21] MEDS ORDERED: NORCO 5/325 MG ONE (10:17)
[2023-03-21] MEDS ORDERED: NORCO 5/325 MG PO ONE (10:18)
[2023-03-21 10:33] LABS: ALBUMIN 3.8 g/dL (3.5-5.0); ANION GAP 9.6 MEQ/L (5-15); BILIRUBIN,TOTAL 1.5 mg/dL (0.2-1.3); Calcium 9.7 mg/dL (8.4-10.2); Creatinine 1 0.68 mg/dL (0.52-1.04); Direct Bilirubin 1.1 mg/dL (0.0-0.4); EST GLOMERULAR FILTRATION RATE 106.7 ML/MIN; MAGNESIUM 1.6 mg/dL (1.6-2.3); Potassium 4.2 mmol/L (3.5-5.1); Total Protein 8.4 g/dL (6.3-8.2)
[2023-03-21 10:44] LABS: NT PRO BNPII 654 pg/mL (<300); TROPONIN < 0.012 ng/mL (0.000-0.034)
[2023-03-21] MEDS ORDERED: MORPHINE SULFATE 4 MG INJ IV ONE ×2 (10:47→14:36)
[2023-03-21] MEDS ORDERED: Zofran 4 MG/2 ML VIAL IV ONE (10:47)
[2023-03-21] MEDS ORDERED: Sodium Chloride 0.9% 1000 ML 1,000 ML IV STA (10:47)
[2023-03-21] MEDS ORDERED: ROCEPHIN 2 Gm-D5w 50ML BAG** 2 G/50 ML IVPB IV STA (10:50)
[2023-03-21] MEDS ORDERED: ROCEPHIN 2 Gm-D5w 50ML BAG** 2 G/50 ML IVPB IV ONE (10:55)
[2023-03-21] MEDS ORDERED: MORPHINE SULFATE 4 MG INJ ONE ×2 (10:55→14:52)
[2023-03-21] MEDS ORDERED: Sodium Chloride 0.9% 1000 ML 1,000 ML ONE (10:55)
[2023-03-21] MEDS ORDERED: Zofran 4 MG/2 ML VIAL ONE (10:55)
[2023-03-21 10:56] LABS: INFLUENZA A NEGATIVE (NEGATIVE); INFLUENZA B NEGATIVE (NEGATIVE); RESPIRATORY SYNCTIAL VIRUS NEGATIVE (NEGATIVE); SARS-CoV-2 Xpert Express NEGATIVE (NEGATIVE)
--- NOTE | 2023-03-21 11:54 | ERPHSYRPT ---
- History of Present Illness Time Seen by Provider: 03/21/23 10:46 Source: patient Exam Limitations: no limitations Patient Subjective Stated Complaint: Patient c/o increased SOB over the past few days. Patient indicates that she is always SOB related to her COPD but that it has become worse especially with exertion. Patient states she removes her oxygen at home to go to the restroom and normally maintains an 02 sat of 96% but it has been dropping down to 81% over the past few days. Triage Nursing Assessment: Patient brought back to ER in a W/C. She is SOB. She is alert and oriented. Patient is pale. Wheezes noted to right upper lobe. Crack les noted in bases. Left lung diminished as well. 02 sats 95% on room air; 02 @ 3L per N/C applied due to this is what patient normally wears at home continuously. Edema noted to BLE. MILLER WNL. Patient with a non-productive cough; states productive at home with yellow sputum. Physician History: 47 years old female with history of COPD with chronic respiratory failure on 3 L oxygen, hypertension presented in the ER with chief complaint of increasing shortness of breath and wheezing for the last 1 week. Patient reports feeling mild shortness of breath despite being on oxygen and it gets worse when she takes off her oxygen to go use the restroom and drops in low 80s. This has been happening recently as before that she was able to maintain her saturation above 90 for a few minutes before she had to reapply oxygen. She also reports left flank pain for the last couple of days with progressive worsening lately. Denies any urinary symptoms. No fever or chills reported. Allergies/Adverse Reactions: bismuth subsalicylate [From Pepto-Bismol] Allergy (Mild, Verified 03/21/23 08:49) Swelling sulfamethoxazole [From Bactrim] Allergy (Verified 03/21/23 08:49) Swelling trimethoprim [From Bactrim] Allergy (Verified 03/21/23 08:49) Swelling ANTACIDS Allergy (Uncoded 03/21/23 08:49) Swelling Home Medications: Lisinopril 20 mg [Zestril 20 MG] 1 tab PO DAILY 03/21/23 [History] Metoprolol Succinate 50 mg [Toprol Xl 50 MG] 1 tab PO DAILY 03/21/23 [History] Hx Tetanus, Diphtheria Vaccination/Date Given: Yes Hx Influenza Vaccination/Date Given: No Hx Pneumococcal Vaccination/Date Given: No Immunizations Up to Date: Yes Travel Risk - International Travel Have you traveled outside of the country in past 3 weeks: No - Coronavirus Screening Are you exhibiting any of the following symptoms?: Yes Symptoms: Cough: New Onset, Shortness of Breath Close contact with a COVID-19 positive Pt in past 14-21 Days: No - Vaccine Status Have you recieved a Covid-19 vaccination: No - Review of Systems Constitutional: No Symptoms Eyes: No Symptoms Ears, Nose, & Throat: No Symptoms Respiratory: Cough, Dyspnea, Dyspnea on Exertion (PAREDES), Wheezing Cardiac: No Chest Pain, No Palpitations Abdominal/Gastrointestinal: Abdominal Pain, Nausea Genitourinary Symptoms: No Symptoms Musculoskeletal: Arthralgias Skin: No Symptoms Neurological: No Symptoms Hematologic/Lymphatic: No Symptoms Immunological/Allergic: No Symptoms - Past Medical History Pertinent Past Medical History: Yes Neurological History: No Pertinent History ENT History: No Pertinent History Cardiac History: Hypertension Respiratory History: Bronchitis, COPD Endocrine Medical History: Diabetes Type II, Other Musculoskeletal History: Degenerative Disk Disease, Fibromyalgia, Osteoarthritis, Rheumatoid Arthritis GI Medical History: Gallbladder Disease, Hepatitis History: Other Psycho-Social History: Anxiety, Depression Female Reproductive Disorders: Abnormal Uterine Bleeding, Menstrual Problems Other Medical History: POLYCYSTIC RENAL DISEASE. Recent DM II vs insulin resistance. HX OF DRUG ABUSE - no current treatment - Past Surgical History Past Surgical History: Yes Neuro Surgical History: No Pertinent History Cardiac: No Pertinent History Respiratory: No Pertinent History Gastrointestinal: Cholecystectomy Genitourinary: Other Musculoskeletal: Orthopedic Surgery Female Surgical History: Tubal Ligation, Other Other Surgical History: ankle, knee, uterine ablasion,knee surg, back,kidney stone removal. kidney stent 202109/02/21 - Social History Smoking Status: Current some day smoker How long have you smoked: years Exposure to second hand smoke: Yes Drug Use: marijuana Patient Lives Alone: No Significant Family History: no pertinent family hx - Female History Hx Last Menstrual Period: No longer has them Hx Now: (unkn) - Nursing Vital Signs Nursing Vital Signs: Initial Vital Signs Temperature 97.9 F 03/21/23 08:48 Pulse Rate 108 H 03/21/23 08:48 Respiratory Rate 26 H 03/21/23 08:48 Blood Pressure 145/112 03/21/23 08:48 O2 Sat by Pulse Oximetry 95 03/21/23 08:48 Pain Scale Pain Intensity 0 - Physical Exam General Appearance: no apparent distress, alert Eye Exam: PERRL/EOMI Ears, Nose, Throat Exam: normal ENT inspection, pharynx normal, moist mucous membranes Neck Exam: normal inspection, non-tender, supple, full range of motion Respiratory Exam: rhonchi, wheezing Cardiovascular Exam: regular rate/rhythm, normal heart sounds Gastrointestinal/Abdomen Exam: soft, normal bowel sounds, tenderness (Left flank), guarding Back Exam: normal inspection, normal range of motion, CVA tenderness (Left side) Extremity Exam: normal inspection Neurologic Exam: alert, oriented x 3, cooperative Skin Exam: normal color SpO2 Interpretation: O2 applied SpO2: 96 O2 Delivery: Nasal Cannula (3 L) - Course EKG Interpreted by Me: RATE (96), Sinus Rhythm, Right [place] Deviation, NORMAL INT ERVALS, Other (T wave inversion in anterior leads) Ordered Tests: Active Orders 24 hr Category Date Time Status Commercial Carpenter STAT Care 03/21/23 09:25 Active EKG-ER Only STAT Care 03/21/23 09:24 Active IV Insertion STAT Care 03/21/23 09:24 Active Oxygen-ED Only Nasal Cannula 3 lpm Care 03/21/23 09:24 Active Pulse Oximetry (ED) STAT Care 03/21/23 09:24 Active ABDOMEN AND PELVIS W CONTRAST [CT] Stat Exams 03/21/23 10:48 Completed CHEST 1 VIEW (PORTABLE) Stat Exams 03/21/23 08:51 Taken CHEST WITH CONTRAST [CT] Stat Exams 03/21/23 10:49 Completed AMYLASE Stat Lab 03/21/23 14:38 Ordered BLOOD CULTURE Stat Lab 03/21/23 09:09 Received CBC W DIFF Stat Lab 03/21/23 10:00 Completed CMP Stat Lab 03/21/23 10:00 Completed CULTURE,URINE Stat Lab 03/21/23 08:55 Received D-DIMER QUANTITATIVE Stat Lab 03/21/23 10:00 Completed Hepatic Function Panel Stat Lab 03/21/23 10:00 Completed LIPASE Stat Lab 03/21/23 14:35 Ordered Lactic Acid Stat Lab 03/21/23 09:24 Completed MAGNESIUM Stat Lab 03/21/23 10:00 Completed NT PRO BNPII Stat Lab 03/21/23 10:00 Completed TROPONIN Q4H Lab 03/21/23 10:00 Completed TROPONIN Q4H Lab 03/21/23 13:01 Completed TROPONIN Q4H Lab 03/21/23 17:30 Ordered UA W/RFX UR CULTURE Stat Lab 03/21/23 08:55 Completed Respiratory Therapy Assessment DAILY RT 03/21/23 09:21 Active Medication Summary Discontinued Medications Generic Name Dose Route Start Last Admin Trade Name Freq PRN Reason Stop Dose Admin Hydrocodone Bitart/Acetaminophen Confirm 03/21/23 10:17 Hydrocodone/Apap 5/325 1 Tab Tablet Administered 03/21/23 10:18 Dose 1 tab .ROUTE .STK-MED ONE Hydrocodone Bitart/Acetaminophen 1 tab 03/21/23 10:18 03/21/23 10:18 Hydrocodone/Apap 5/325 1 Tab Tablet PO 03/21/23 10:19 1 tab STAT ONE Administration Albuterol/Ipratropium 3 ml 03/21/23 09:15 03/21/23 10:05 Ipratropium/Albuterol Sulfate 3 Ml Ampul.Neb IH 03/21/23 09:16 3 ml STAT ONE Administration Albuterol/Ipratropium Confirm 03/21/23 09:15 Ipratropium/Albuterol Sulfate 3 Ml Ampul.Neb Administered 03/21/23 09:16 Dose 3 ml IH .STK-MED ONE Sodium Chloride 1,000 mls @ 999 mls/hr 03/21/23 10:47 03/21/23 12:04 Sodium Chloride 0.9% 1000 Ml IV 03/21/23 11:47 0 mls/hr .Q1H1M STA Infusion Ceftriaxone Sodium/Dextrose 2 g in 50 mls @ 100 mls/hr 03/21/23 10:50 03/21/23 12:18 Rocephin 2 Gm-D5w 50ml Bag IV 03/21/23 11:19 Infused STAT STA Infusion Sodium Chloride Confirm 03/21/23 10:55 Sodium Chloride 0.9% 1000 Ml Administered 03/21/23 10:56 Dose 1,000 mls @ ud .ROUTE .STK-MED ONE Ceftriaxone Sodium/Dextrose Confirm 03/21/23 10:55 Rocephin 2 Gm-D5w 50ml Bag Administered 03/21/23 10:56 Dose 2 g in 50 mls @ ud IV .STK-MED ONE Morphine Sulfate 4 mg 03/21/23 10:47 03/21/23 10:56 Morphine Sulfate 4 Mg/Ml Injection IV 03/21/23 10:48 4 mg STAT ONE Administration Morphine Sulfate Confirm 03/21/23 10:55 Morphine Sulfate 4 Mg/Ml Injection Administered 03/21/23 10:56 Dose 4 mg .ROUTE .STK-MED ONE Morphine Sulfate 4 mg 03/21/23 14:36 Morphine Sulfate 4 Mg/Ml Injection IV 03/21/23 14:37 STAT ONE Ondansetron HCl 4 mg 03/21/23 10:47 03/21/23 10:56 Ondansetron Hcl 4 Mg/2 Ml Vial IV 03/21/23 10:48 4 mg STAT ONE Administration Ondansetron HCl Confirm 03/21/23 10:55 Ondansetron Hcl 4 Mg/2 Ml Vial Administered 03/21/23 10:56 Dose 4 mg .ROUTE .STK-MED ONE Lab/Rad Data: Laboratory Result Diagrams 03/21/23 10:00 03/21/23 10:00 Laboratory Results 03/21/23 03/21/23 03/21/23 Range/Units 13:01 10:05 10:00 WBC (4.0-10.5) x10^3/uL RBC (4.1-5.4) x10^6/uL Hgb (12.0-16.0) g/dL Hct (35-47) % MCV (78-100) fL MCH (26-32) pg MCHC (32-36) g/dL RDW (11.5-14.0) % Plt Count (150-450) x10^3/uL MPV (7.5-11.0) fL Gran % (36.0-66.0) % Immature Gran % (Auto) (0.00-0.4) % Nucleat RBC Rel Count (0.00-0.1) % Eos # (Auto) (0-0.5) x10^3/uL Immature Gran # (Auto) (0.00-0.03) x10^3u/L Absolute Lymphs (auto) (1.0-4.6) x10^3/uL Absolute Monos (auto) (0.0-1.3) x10^3/uL Absolute Nucleated RBC (0.00-0.01) x10^3u/L Lymphocytes % (24.0-44.0) % Monocytes % (0.0-12.0) % Eosinophils % (0.00-5.0) % Basophils % (0.0-0.4) % Absolute Granulocytes (1.4-6.9) x10^3/uL Basophils # (0-0.4) x10^3/uL D-Dimer (0.0-0.50) mg/L Sodium (137-145) mmol/L Potassium (3.5-5.1) mmol/L Chloride (98-107) mmol/L Carbon Dioxide (22-30) mmol/L Anion Gap (5-15) MEQ/L BUN (7-17) mg/dL Creatinine (0.52-1.04) mg/dL Estimated GFR ML/MIN Glucose (74-106) mg/dL Lactic Acid (0.4-2.0) Calcium (8.4-10.2) mg/dL Magnesium (1.6-2.3) mg/dL Total Bilirubin (0.2-1.3) mg/dL Direct Bilirubin (0.0-0.4) mg/dL AST (14-36) U/L ALT (0-35) U/L Alkaline Phosphatase (38-126) U/L Troponin I < 0.012 < 0.012 (0.000-0.034) ng/mL NT-Pro-B Natriuret Pep 654 (<300) pg/mL Serum Total Protein (6.3-8.2) g/dL Albumin (3.5-5.0) g/dL Urine Color (Yellow) Urine Appearance (Clear) Urine pH (4.6-8.0) Ur Specific [place] (1.005-1.030) Urine Protein (Negative) Urine Glucose (UA) (Negative) mg/dL Urine Ketones (Negative) Urine Blood (Negative) Urine Nitrite (Negative) Urine Bilirubin (Negative) Urine Urobilinogen (0.2) mg/dL Ur Leukocyte Esterase (Negative) U Hyaline Cast (Auto) (0-2) /LPF Urine Microscopic RBC (0-5) /HPF Urine Microscopic WBC (0-5) /HPF Ur Epithelial Cells (None Seen) /HPF Urine Bacteria (None Seen) /HPF Urine Culture Reflexed (NO) Influenza Type A Ag NEGATIVE (NEGATIVE) Influenza Type B Ag NEGATIVE (NEGATIVE) RSV (PCR) NEGATIVE (NEGATIVE) SARS-CoV-2 (PCR) NEGATIVE (NEGATIVE) 03/21/23 03/21/23 03/21/23 Range/Units 10:00 10:00 10:00 WBC 7.4 (4.0-10.5) x10^3/uL RBC 3.53 L (4.1-5.4) x10^6/uL Hgb 10.9 L (12.0-16.0) g/dL Hct 35.8 (35-47) % MCV 101.4 H (78-100) fL MCH 30.9 (26-32) pg MCHC 30.4 L (32-36) g/dL RDW 17.7 H (11.5-14.0) % Plt Count 272 (150-450) x10^3/uL MPV 10.4 (7.5-11.0) fL Gran % 70.1 H (36.0-66.0) % Immature Gran % (Auto) 0.5 H (0.00-0.4) % Nucleat RBC Rel Count 0.0 (0.00-0.1) % Eos # (Auto) 0.08 (0-0.5) x10^3/uL Immature Gran # (Auto) 0.04 H (0.00-0.03) x10^3u/L Absolute Lymphs (auto) 1.27 (1.0-4.6) x10^3/uL Absolute Monos (auto) 0.77 (0.0-1.3) x10^3/uL Absolute Nucleated RBC 0.00 (0.00-0.01) x10^3u/L Lymphocytes % 17.2 L (24.0-44.0) % Monocytes % 10.4 (0.0-12.0) % Eosinophils % 1.1 (0.00-5.0) % Basophils % 0.7 (0.0-0.4) % Absolute Granulocytes 5.19 (1.4-6.9) x10^3/uL Basophils # 0.05 (0-0.4) x10^3/uL D-Dimer 0.78 H* (0.0-0.50) mg/L Sodium 137 (137-145) mmol/L Potassium 4.2 (3.5-5.1) mmol/L Chloride 93 L (98-107) mmol/L Carbon Dioxide 39 H (22-30) mmol/L Anion Gap 9.6 (5-15) MEQ/L BUN 9 (7-17) mg/dL Creatinine 0.68 (0.52-1.04) mg/dL Estimated GFR 106.7 ML/MIN Glucose 107 H (74-106) mg/dL Lactic Acid (0.4-2.0) Calcium 9.7 (8.4-10.2) mg/dL Magnesium 1.6 (1.6-2.3) mg/dL Total Bilirubin 1.50 H (0.2-1.3) mg/dL Direct Bilirubin 1.1 H (0.0-0.4) mg/dL AST 97 H (14-36) U/L ALT 101 H (0-35) U/L Alkaline Phosphatase 197 H (38-126) U/L Troponin I (0.000-0.034) ng/mL NT-Pro-B Natriuret Pep (<300) pg/mL Serum Total Protein 8.4 H (6.3-8.2) g/dL Albumin 3.8 (3.5-5.0) g/dL Urine Color (Yellow) Urine Appearance (Clear) Urine pH (4.6-8.0) Ur Specific [place] (1.005-1.030) Urine Protein (Negative) Urine Glucose (UA) (Negative) mg/dL Urine Ketones (Negative) Urine Blood (Negative) Urine Nitrite (Negative) Urine Bilirubin (Negative) Urine Urobilinogen (0.2) mg/dL Ur Leukocyte Esterase (Negative) U Hyaline Cast (Auto) (0-2) /LPF Urine Microscopic RBC (0-5) /HPF Urine Microscopic WBC (0-5) /HPF Ur Epithelial Cells (None Seen) /HPF Urine Bacteria (None Seen) /HPF Urine Culture Reflexed (NO) Influenza Type A Ag (NEGATIVE) Influenza Type B Ag (NEGATIVE) RSV (PCR) (NEGATIVE) SARS-CoV-2 (PCR) (NEGATIVE) 03/21/23 03/21/23 Range/Units 09:24 08:55 WBC (4.0-10.5) x10^3/uL RBC (4.1-5.4) x10^6/uL Hgb (12.0-16.0) g/dL Hct (35-47) % MCV (78-100) fL MCH (26-32) pg MCHC (32-36) g/dL RDW (11.5-14.0) % Plt Count (150-450) x10^3/uL MPV (7.5-11.0) fL Gran % (36.0-66.0) % Immature Gran % (Auto) (0.00-0.4) % Nucleat RBC Rel Count (0.00-0.1) % Eos # (Auto) (0-0.5) x10^3/uL Immature Gran # (Auto) (0.00-0.03) x10^3u/L Absolute Lymphs (auto) (1.0-4.6) x10^3/uL Absolute Monos (auto) (0.0-1.3) x10^3/uL Absolute Nucleated RBC (0.00-0.01) x10^3u/L Lymphocytes % (24.0-44.0) % Monocytes % (0.0-12.0) % Eosinophils % (0.00-5.0) % Basophils % (0.0-0.4) % Absolute Granulocytes (1.4-6.9) x10^3/uL Basophils # (0-0.4) x10^3/uL D-Dimer (0.0-0.50) mg/L Sodium (137-145) mmol/L Potassium (3.5-5.1) mmol/L Chloride (98-107) mmol/L Carbon Dioxide (22-30) mmol/L Anion Gap (5-15) MEQ/L BUN (7-17) mg/dL Creatinine (0.52-1.04) mg/dL Estimated GFR ML/MIN Glucose (74-106) mg/dL Lactic Acid 1.0 (0.4-2.0) Calcium (8.4-10.2) mg/dL Magnesium (1.6-2.3) mg/dL Total Bilirubin (0.2-1.3) mg/dL Direct Bilirubin (0.0-0.4) mg/dL AST (14-36) U/L ALT (0-35) U/L Alkaline Phosphatase (38-126) U/L Troponin I (0.000-0.034) ng/mL NT-Pro-B Natriuret Pep (<300) pg/mL Serum Total Protein (6.3-8.2) g/dL Albumin (3.5-5.0) g/dL Urine Color Dark Yellow A (Yellow) Urine Appearance Cloudy A (Clear) Urine pH 7.5 (4.6-8.0) Ur Specific [place] 1.015 (1.005-1.030) Urine Protein 30 (Negative) Urine Glucose (UA) Negative (Negative) mg/dL Urine Ketones Negative (Negative) Urine Blood Negative (Negative) Urine Nitrite Negative (Negative) Urine Bilirubin Moderate A (Negative) Urine Urobilinogen 4.0 A (0.2) mg/dL Ur Leukocyte Esterase Large A (Negative) U Hyaline Cast (Auto) NONE SEEN (0-2) /LPF Urine Microscopic RBC 0-2 (0-5) /HPF Urine Microscopic WBC >100 A (0-5) /HPF Ur Epithelial Cells Rare (None Seen) /HPF Urine Bacteria None Seen (None Seen) /HPF Urine Culture Reflexed YES (NO) Influenza Type A Ag (NEGATIVE) Influenza Type B Ag (NEGATIVE) RSV (PCR) (NEGATIVE) SARS-CoV-2 (PCR) (NEGATIVE) - Progress Progress: improved, pain not gone completely, re-examined Progress Note: 03/21/23 14:39 47-year-old is evaluated in the ER for with chief complaint of shortness of breath and left flank pain. She is given neb treatment along with symptomatic treatment for pain. Work-up showed normal white count, chemistry profile showed normal renal functions but total bili of 1.5 with ALT and AST in low 100s. She does have history of elevated transaminases in the past. Patient has elevated D-dimers. CTA chest is negative for pulmonary embolism or focal consolidation. Patient is on 3 L oxygen which she normally on and maintaining saturation cristopher und 96%. She does have UTI and given a dose of Rocephin. CT abdomen pelvis with contrast showed hepatic steatosis/hepatomegaly with CBD dilatation of 16 mm without any obvious stone. No acute pancreatitis. Discussed with Dr. Rosenthal hospitalist here, recommended transfer to facility with ERCP services. I have called [facility] but no ERCP services are available. I have called [facility] in [place], discussed with Dr. Lopes and Dr. Zuñiga, reviewed history, work-up and patient is accepted for transfer. I have discussed the results of work-up and plan of transfer with patient and family who understand and agree with it. Discussed with Dr.: Liv, Other (Dr. Lopes and Dr. Zuñiga [facility] [id number]) Counseled pt/family regarding: lab results, diagnosis, rad results Medical Desision Making - Independent Historian Additional History obtained from: Spouse - Discussion of managment Care discussed with:: specialist (Dr. Lopes and Dr. Garcia [facility]) Reviewed:: Test results, Need for additional workup Agreed on:: Treatment plan Will see patient: in hospital - Diagnostic Testing Diagnostic test were ordered, analyzed, and reviewed by me: Yes Radiological Interpretation: Interpreted by me, Reviewed by me, Teleradiologist Report - Risk of complications The pt has a mod risk of morbidity or mortality based on: Need for minor surgical intervention in patient with know risk factors - Departure Departure Disposition: Transfer Clinical Impression: Urinary tract infectious disease, Dilated cbd, acquired, Dyspnea, Elevated liver transaminase level Condition: Stable Critical Care Time: No Referrals: LAURA GOODMAN [Primary Care Provider] - Follow up/PCP as directed
--- NOTE | 2023-03-21 12:24 | XRAY ---
CLINICAL HISTORY:sob COMPARISON:None TECHNIQUE:Contiguous 3.[address] images of the chest were acquired with the administration of intravenous contrast. Coronal and sagittal reconstructions were obtained. FINDINGS: The scanned pulmonary parenchyma shows no definite consolidative lesions. Bilateral basal atelectatic bands. No free or encysted pleural effusion. Heart size is normal, and there is no pericardial effusion. Few enlarged mediastinal implicating the prevascular, paratracheal and subcarinal group with the largest at th latter group measuring 13 mm lymph node identified. All showing preserved fatty hilum is likely reactionary. There is no definite mass lesion in the chest wall. Scanned upper abdomen show enlarged diffusely hypodense liver consistent with fatty infiltration. Surgically removed gall bladder. Multiple variable-sized left renal cysts. Left thyroid lobe shows a 10.2 x 10.8 mm hypodense nodule. Degenerative changes of the visualized spine with evidence of lithesis. IMPRESSION: 1. No acute Pulmonary pathology. 2. Reactive mediastinal lymph nodes. 3. Left thyroid lobe nodule for further US correlation. 5. Fatty liver. Electronically Signed by: Edna Trejo MD. (03/21/2023 11:23:38 TESTS SUPERINTENDENT)
--- NOTE | 2023-03-21 13:00 | XRAY ---
CLINICAL HISTORY:left flank pain COMPARISON:None TECHNIQUE:CT scan of the abdomen and pelvis was performed with IV contrast. Bowel loops are opacified by prior administration of oral contrast. Coronal and sagittal reconstructive images were also obtained. FINDINGS: Abdomen: The liver is enlarged in size and measures 18.5 cm. Diffuse hypodensity of its parenchyma denoting fatty infiltration. The portal vein, intrahepatic biliary radicals and the bile ducts are normal. The spleen, pancreas, adrenal glands are unremarkable. The kidneys are enlarged with innumerable variable sized hypodense cysts consistent with polycystic kidney disease. Bilateral multiple hyperdense stones are noted, the largest measuring 12 mm and seen on the left kidney. No hydronephrosis. The gallbladder is surgically removed with surgical clips noted. The CBD is dilated 16 mm with no stones. The ascending colon, the transverse colon, the descending colon, visualized small bowel loops are unremarkable. Multiple mural outpouchings of the descending colon and rectosigmoid are consistent with noncomplicated diverticulosis. Multiple paraaortic and mesenteric nodes are noted the largest is left paraaortic at the level of the left renal hilum measuring 18 x 9.7 mm. Pelvis: The urinary bladder is unremarkable. The uterus is unremarkable. No evidence of pelvic lymphadenopathy. The osseous structures in the pelvis, lower rib cage and lumbar spine show no abnormality. No lytic or sclerotic bone lesions. IMPRESSION: 1. Hepatomegaly with diffuse steatosis. 2. Dilated CBD measuring 16 mm. Further evaluation by MRCP is advised. 3. Bilateral polycystic kidneys and multiple bilateral non-obstructive stones. 4. Rectosigmoid and descending colon diverticulosis with no CT features of complications. Electronically Signed by: Edna Trejo MD. (03/21/2023 11:58:47 WING COVERER)
[2023-03-21 13:32] VITALS: PULSE 95
[2023-03-21 14:43] VITALS: O2SAT 96
[2023-03-21 14:46] LABS: AMYLASE 60 U/L (30-110); LIPASE 67 U/L (23-300)
[2023-03-21 14:53] VITALS: RESP 23
[2023-03-21 15:22] VITALS: BP 144/99
--- NOTE | 2023-03-21 18:00 | XRAY ---
Indication: Short of breath. Comparison: November 18, 2022 Portable chest unchanged again demonstrating right mid lung subsegmental atelectasis/scarring. Heart not enlarged. Bony thorax intact. No new/acute findings.
== END 2023-03-21 15:10 | disposition short-term general hospital (02) ==
LOC: ED 08:47
DX: N39.0 Urinary tract infection, site not specified (principal); K82.8 Other specified diseases of gallbladder; R06.00 Dyspnea, unspecified; R74.01 Elevation of levels of liver transaminase levels; R10.9 Unspecified abdominal pain; J44.9 Chronic obstructive pulmonary disease, unspecified; I10 Essential (primary) hypertension; E11.9 Type 2 diabetes mellitus without complications; Z79.899 Other long term (current) drug therapy; Z28.310 Unvaccinated for COVID-19; Z72.0 Tobacco use; Z99.81 Dependence on supplemental oxygen; Z20.828 Contact with and (suspected) exposure to other viral communicable diseases
CPT/HCPCS: 0241U; 36000; 36415; 71045; 71260; 74177; 80053; 80076; 81001; 82150; 83605; 83690; 83735; 83880; 84484; 85025; 85379; 87040; 87086; 93005; 93041; 94640; 94760; 96374; 96375; 96376; 99285; 87077; 87186; 96365; J0696; J2270; J2405; A9270-GY

== ENCOUNTER 2023-08-23 08:55 | Observation (INO) | payer MEDICAID, OTHER ==
[2023-08-23] MEDS ORDERED: Zofran 4 MG/2 ML VIAL ONE (10:00)
[2023-08-23] MEDS ORDERED: Sodium Chloride 0.9% 1000 ML 0 ML ONE (10:00)
--- NOTE | 2023-08-23 10:07 | XRAY ---
Indication: Confusion. Stroke. Multiple contiguous axial images obtained through the head without contrast. Comparison: March 06, 2016 Normal appearing brain parenchyma, ventricles, and bony calvarium for patient's age. New near complete opacification both mastoid air cells and left middle ear presumed inflammatory. Visualized paranasal sinuses are clear. Impression: 1. New opacification both mastoid air cells and left middle ear. Rule out chronic otitis media. 2. Remaining CT head without contrast exam is again normal..
--- NOTE | 2023-08-23 10:14 | XRAY ---
Indication: Pain, nausea, and vomiting. Multiple contiguous axial images obtained through the abdomen and pelvis without contrast. Comparison: March 21, 2023 Lung bases clear. Heart not enlarged. Stomach is now distended with fluid/fluid. Noncontrasted stomach and bowel loops appear nonobstructed again with normal appendix. Again minimal sigmoid diverticulosis, 20.5 cm fatty hepatomegaly, a few chronic pancreatitis microcalcifications, polycystic kidney disease, nonobstructing bilateral micro-calculi, and cholecystectomy. No free fluid/air. Remaining liver, pancreas, spleen, adrenal glands, kidneys, ureters, bladder, and uterus are unremarkable for noncontrast exam. There remains mild scattered aortoiliac calcifications without AAA. Osseous structures intact again with mild degenerative changes throughout spine and bilateral L4-S1 facet screws. Impression: 1. Again chronic findings including sigmoid diverticulosis, fatty hepatomegaly, chronic pancreatitis microcalcifications, polycystic kidney disease, nonobstructing bilateral renal micro-calculi, arteriosclerotic disease, and chronic bony findings. 2. No new/acute intra-abdominal or pelvic abnormalities on this noncontrast exam.
--- NOTE | 2023-08-23 10:15 | XRAY ---
Indication: Pain, nausea, and vomiting. Comparison: March 21, 2023 Portable chest now demonstrates borderline cardiomegaly. Lungs inflated and clear. Bony thorax intact. No acute findings..
[2023-08-23 10:47] LABS: Appearance Turbid (Clear); Bacteria Many /HPF (None Seen); Bilirubin Moderate (Negative); Blood Moderate (Negative); Epithelial Cells Moderate /HPF (None Seen); Glucose, Urine Negative (Negative); Hyaline Casts >50 /LPF (0-2); Ketones Trace (Negative); Leukocyte Esterase Large (Negative); Nitrite Positive (Negative); Protein,Urine Dip 100 (Negative); Specific Gravity 1.025 (1.005-1.030); WBC >100 /HPF (0-5)
[2023-08-23 10:48] LABS: ADD URINE CULTURE? YES (NO)
--- NOTE | 2023-08-23 11:03 | ERPHSYRPT ---
- History of Present Illness Time Seen by Provider: 08/23/23 09:55 Source: patient, family Exam Limitations: no limitations Patient Subjective Stated Complaint: Patient reports that she recently stopped drinking alcohol and that she has been going through withdrawl symptoms x 4 days. Patient reports auditory and visual hallucinations and just feeling off. Triage Nursing Assessment: Patient ambulated back to ER with stand by assist of her . Patient reports that she is an alcoholic who typically drinks a fifth of whiskey daily and 2 shooters. Patient reports that she quit drinking 4 days ago and has been experiencing s/s withdrawl including; chills, sweating, nausea, vomitting, diarrhea, headache, hallucinations and sleep disturbance. Patient reports auditory and visual hallucinations which started 08/22/23 and states that she has not slept x 4 days even after taking her prescribed sleep medication. Patient reports pain to her head, neck and back rating it 7/10 at this time. Patient a&o x 3 and resting in bed with easy respirations and does not appear short of breath. O2 sat 88% on room air. O2 applied at 3L NC which patient reports she wears continuously at home and sats increased to 93%. Patient denies chest pain and shortness of breath. Patient has a history of chronic UTI's and states that her urine odor has been very strong recently. Patient reports that she was scheduled for a heart cath last month but was unable to have completed due to insurance reasons. Patient is a 1-2 pack a day cigarrette smoker and reports that she also smokes marijuana daily. Patient states that she has not taken her daily medications in at least 2 days. 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 Speech is clear and appropriate although responses are delayed. Physician History: Patient is a 48-year-old white female longstanding alcoholic who presents after not drinking for 4 days. She has tremors she has nausea vomiting diarrhea she has been hallucinating visually and auditory wilson. She stopped drinking alcohol about 4 days agoShe has not been sleeping despite sleeping pills.Family reports that she been complaining of feeling off.She does have a history of COPD she is on home O2 hypertension frequent and severe urinary tract infectionsLast visit here she was [facility] because of a dilated common duct results of that are not known. Timing/Duration: day(s) (4) Severity: moderate Associated Symptoms: nausea, vomiting, abdominal pain, diaphoresis, chills, weakness Allergies/Adverse Reactions: bismuth subsalicylate [From Pepto-Bismol] Allergy (Mild, Verified 08/23/23 09:12) Swelling sulfamethoxazole [From Bactrim] Allergy (Verified 08/23/23 09:12) Swelling trimethoprim [From Bactrim] Allergy (Verified 08/23/23 09:12) Swelling ANTACIDS Allergy (Uncoded 08/23/23 09:12) Swelling Home Medications: Lisinopril 20 mg [Zestril 20 MG] 1 tab PO DAILY 03/21/23 [History] Metoprolol Succinate 50 mg [Toprol Xl 50 MG] 1 tab PO DAILY 03/21/23 [History] Asenapine Maleate 10 mg SL HS 08/23/23 [History] Atorvastatin Calcium 20 mg PO DAILY 08/23/23 [History] Cholecalciferol (Vitamin D3) [Vitamin D] 2,000 unit PO WEEKLY 08/23/23 [History] Empagliflozin [Jardiance] 10 mg PO DAILY 08/23/23 [History] Famotidine 20 mg [Pepcid 20 MG] 40 mg PO DAILY 08/23/23 [History] Finerenone [Kerendia] 20 mg PO DAILY 08/23/23 [History] Folic Acid 1 mg [Folate 1 mg] 1 mg PO DAILY 08/23/23 [History] Icosapent Ethyl [Vascepa] 2 cap PO BID 08/23/23 [History] Losartan Potassium 50 mg [Cozaar 50 MG] 50 mg PO DAILY 08/23/23 [History] Magnesium Oxide 400 mg [Mag-Ox 400] 400 mg PO DAILY 08/23/23 [History] Ropinirole 2Mg [Requip 2Mg Tab] 3 mg PO HS 08/23/23 [History] Thiamine HCl 100 mg [Vitamin B-1 100 mg] 100 mg PO DAILY 08/23/23 [History] Trazodone HCl 50 mg [Desyrel 50 mg] 200 mg PO HS 08/23/23 [History] Hx Tetanus, Diphtheria Vaccination/Date Given: Yes Hx Influenza Vaccination/Date Given: No Hx Pneumococcal Vaccination/Date Given: No Travel Risk - International Travel Have you traveled outside of the country in past 3 weeks: No - Emerging Infectious Disease Are you exhibiting symptoms associated with any current EIDs: No - Review of Systems Constitutional: Chills, Malaise, Night Sweats, Weakness, No Fever Eyes: No Symptoms Ears, Nose, & Throat: No Symptoms Respiratory: No Cough, No Dyspnea Cardiac: No Chest Pain, No Edema, No Syncope Abdominal/Gastrointestinal: Nausea, Vomiting, Diarrhea, No Abdominal Pain Genitourinary Symptoms: No Dysuria Musculoskeletal: No Back Pain, No Neck Pain Skin: No Rash Neurological: No Dizziness, No Focal Weakness, No Sensory Changes Psychological: Alcohol Abuse Endocrine: No Symptoms All Other Systems: Reviewed and Negative - Past Medical History Pertinent Past Medical History: Yes Neurological History: No Pertinent History ENT History: No Pertinent History Cardiac History: Hypertension Respiratory History: Bronchitis, COPD Endocrine Medical History: Diabetes Type II, Other Musculoskeletal History: Degenerative Disk Disease, Fibromyalgia, Osteoarthritis, Rheumatoid Arthritis GI Medical History: Gallbladder Disease, Hepatitis History: Other Psycho-Social History: Anxiety, Depression Female Reproductive Disorders: Abnormal Uterine Bleeding, Menstrual Problems Other Medical History: POLYCYSTIC RENAL DISEASE. Recent DM II vs insulin resistance. HX OF DRUG ABUSE - no current treatment - Past Surgical History Past Surgical History: Yes Neuro Surgical History: No Pertinent History Cardiac: No Pertinent History Respiratory: No Pertinent History Gastrointestinal: Cholecystectomy Genitourinary: Other Musculoskeletal: Orthopedic Surgery Female Surgical History: Tubal Ligation, Other Other Surgical History: ankle, knee, uterine ablasion,knee surg, back,kidney stone removal. kidney stent 202109/02/21 Significant Family History: no pertinent family hx - Social History Smoking Status: Current every day smoker How long have you smoked: years Exposure to second hand smoke: Yes Drug Use: marijuana Patient Lives Alone: No - Nursing Vital Signs Nursing Vital Signs: Initial Vital Signs Pulse Rate 82 08/23/23 09:20 Respiratory Rate 14 08/23/23 09:20 Blood Pressure 94/56 08/23/23 09:20 O2 Sat by Pulse Oximetry 92 L 08/23/23 09:20 Pain Scale Pain Intensity 7 - Physical Exam General Appearance: mild distress Eye Exam: PERRL/EOMI, eyes nml inspection Ears, Nose, Throat Exam: dry mucous membranes Neck Exam: normal inspection, non-tender, supple, full range of motion Respiratory Exam: normal breath sounds, lungs clear, No respiratory distress Cardiovascular Exam: regular rate/rhythm, normal heart sounds, normal peripheral pulses Gastrointestinal/Abdomen Exam: soft, normal bowel sounds, No tenderness, No guarding, No rebound Back Exam: normal inspection, normal range of motion, No CVA tenderness, No vertebral tenderness Extremity Exam: normal inspection, normal range of motion, pelvis stable Neurologic Exam: confusion (Mildly confused), depressed mood/affect Skin Exam: normal color, warm, dry, No rash SpO2 Interpretation: normal SpO2: 92 O2 Delivery: Room Air - Course Nursing assessment & vital signs reviewed: Yes EKG Interpreted by Me: RATE (72), Sinus Rhythm, NORMAL AXIS, Right Bundle Branch Block, Non-specific ST Changes - CT Exams Head CT Interpretation: Other (Opacification of the mastoid air cells bilaterally and perhaps a left otitis media) Abdomen/Pelvis CT Interpretation: Other (Review of the CT of the abdomen pelvis shows chronic changes including past gait calcifications in the pancreas.) Ordered Tests: Active Orders 24 hr Category Date Time Status EKG-ER Only STAT Care 08/23/23 09:29 Active IV Insertion STAT Care 08/23/23 09:29 Active ABDOMEN AND PELVIS W/0 CONTRAS [CT] Stat Exams 08/23/23 09:35 Completed CHEST 1 VIEW (PORTABLE) Stat Exams 08/23/23 10:08 Completed HEAD WITHOUT CONTRAST [CT] Stat Exams 08/23/23 09:32 Completed ACETAMINOPHEN Stat Lab 08/23/23 13:38 Completed CBC W DIFF Stat Lab 08/23/23 13:38 Completed CMP Stat Lab 08/23/23 13:38 Completed CULTURE,URINE Stat Lab 08/23/23 09:31 Received ETHYL ALCOHOL Stat Lab 08/23/23 13:38 Completed LIPASE Stat Lab 08/23/23 13:38 Completed Lactic Acid Stat Lab 08/23/23 13:50 Completed SALICYLATE Stat Lab 08/23/23 13:38 Completed TROPONIN Q4H Lab 08/23/23 13:38 Completed TROPONIN Q4H Lab 08/23/23 13:45 Ordered TROPONIN Q4H Lab 08/23/23 17:45 Ordered UA W/RFX UR CULTURE Stat Lab 08/23/23 09:31 Completed Urine Triage Profile Stat Lab 08/23/23 09:35 Completed Medication Summary Generic Name Dose Route Start Last Admin Trade Name Roseanne PRN Reason Stop Dose Admin Thiamine HCl 100 mg/ 1,000 mls @ 100 mls/hr 08/23/23 11:15 08/23/23 14:29 Multivitamins/Minerals 10 ml/ IV 08/23/23 21:14 100 mls/hr Folic Acid 1 mg/ Magnesium .Q10H RUTH Administration Sulfate 2 gm/ Sodium Chloride Ondansetron HCl 4 mg 08/23/23 11:25 08/23/23 11:32 Zofran 4 Mg/Udtablet Orally Disintegrating PO 09/22/23 11:24 4 mg Q4H PRN PRN Administration NAUSEA/VOMITING Discontinued Medications Generic Name Dose Route Start Last Admin Trade Name Roseanne PRN Reason Stop Dose Admin Sodium Chloride 1,000 mls @ 999 mls/hr 08/23/23 09:29 Sodium Chloride 0.9% 1000 Ml IV 08/23/23 10:29 .Q1H1M STA Sodium Chloride Confirm 08/23/23 10:00 Sodium Chloride 0.9% 1000 Ml Administered 08/23/23 10:01 Dose 1,000 mls @ ud .ROUTE .STK-MED ONE Ceftriaxone Sodium 1 gm in 100 mls @ 200 mls/hr 08/23/23 11:26 08/23/23 13:53 Rocephin 1 Gm / 100 Ml Nacl IV 08/23/23 11:55 200 mls/hr STAT ONE 200 mls/hr Administration Ceftriaxone Sodium Confirm 08/23/23 13:53 Rocephin 1 Gm / 100 Ml Nacl Administered 08/23/23 13:54 Dose 1 gm in 100 mls @ ud IV .STK-MED ONE Lidocaine HCl Confirm 08/23/23 13:42 Lidocaine - Mpf 2% 5 Ml Vial Administered 08/23/23 13:43 Dose 5 ml .ROUTE .STK-MED ONE Lorazepam 2 mg 08/23/23 10:04 Lorazepam 2 Mg/1 Ml 2 Mg Vial IV 08/23/23 10:05 STAT ONE Ondansetron HCl 4 mg 08/23/23 09:34 Ondansetron Hcl 4 Mg/2 Ml Vial IV 08/23/23 09:35 STAT ONE Ondansetron HCl Confirm 08/23/23 10:00 Ondansetron Hcl 4 Mg/2 Ml Vial Administered 08/23/23 10:01 Dose 4 mg .ROUTE .[facility]-MED ONE Lab/Rad Data: Laboratory Result Diagrams 08/23/23 13:38 08/23/23 13:38 Laboratory Results 08/23/23 08/23/23 08/23/23 Range/Units 14:08 13:50 13:38 WBC (4.0-10.5) x10^3/uL RBC (4.1-5.4) x10^6/uL Hgb (12.0-16.0) g/dL Hct (35-47) % MCV (78-100) fL MCH (26-32) pg MCHC (32-36) g/dL RDW (11.5-14.0) % Plt Count (150-450) x10^3/uL MPV (7.5-11.0) fL Gran % (36.0-66.0) % Immature Gran % (Auto) (0.00-0.4) % Nucleat RBC Rel Count (0.00-0.1) % Eos # (Auto) (0-0.5) x10^3/uL Immature Gran # (Auto) (0.00-0.03) x10^3u/L Absolute Lymphs (auto) (1.0-4.6) x10^3/uL Absolute Monos (auto) (0.0-1.3) x10^3/uL Absolute Nucleated RBC (0.00-0.01) x10^3u/L Lymphocytes % (24.0-44.0) % Monocytes % (0.0-12.0) % Eosinophils % (0.00-5.0) % Basophils % (0.0-0.4) % Absolute Granulocytes (1.4-6.9) x10^3/uL Basophils # (0-0.4) x10^3/uL Sodium (135-145) mmol/L Potassium (3.5-5.1) mmol/L Chloride (98-107) mmol/L Carbon Dioxide (22-30) mmol/L Anion Gap (5-15) MEQ/L BUN (7-17) mg/dL Creatinine (0.52-1.04) mg/dL Estimated GFR ML/MIN Glucose (74-106) mg/dL Lactic Acid 1.0 (0.4-2.0) Calcium (8.4-10.2) mg/dL Total Bilirubin (0.2-1.3) mg/dL AST (14-36) U/L ALT (0-35) U/L Alkaline Phosphatase (38-126) U/L Ammonia < 9 L (9-30) umol/L Troponin I < 0.012 (0.000-0.033) ng/mL Serum Total Protein (6.3-8.2) g/dL Albumin (3.5-5.0) g/dL Lipase (23-300) U/L Urine Color (Yellow) Urine Appearance (Clear) Urine pH (4.6-8.0) Ur Specific Hume (1.005-1.030) Urine Protein (Negative) Urine Glucose (UA) (Negative) mg/dL Urine Ketones (Negative) Urine Blood (Negative) Urine Nitrite (Negative) Urine Bilirubin (Negative) Urine Urobilinogen (0.2) mg/dL Ur Leukocyte Esterase (Negative) U Hyaline Cast (Auto) (0-2) /LPF Urine Microscopic RBC (0-5) /HPF Urine Microscopic WBC (0-5) /HPF Ur Epithelial Cells (None Seen) /HPF Urine Bacteria (None Seen) /HPF Urine Culture Reflexed (NO) Salicylates (2-20) mg/dL Urine Opiates Level (NEGATIVE) Ur Methadone (NEGATIVE) Acetaminophen (10-30) ug/ml Urine Barbiturates (NEGATIVE) Ur Phencyclidine (PCP) (NEGATIVE) Urine Amphetamine (NEGATIVE) U Benzodiazepine Level (NEGATIVE) Urine Cocaine (NEGATIVE) Urine Marijuana (THC) (NEGATIVE) Ethyl Alcohol (0-10) mg/dL Slides for Path Review 08/23/23 08/23/23 08/23/23 Range/Units 13:38 13:38 09:35 WBC 10.9 H (4.0-10.5) x10^3/uL RBC 4.15 (4.1-5.4) x10^6/uL Hgb 12.9 (12.0-16.0) g/dL Hct 39.0 (35-47) % MCV 94.0 (78-100) fL MCH 31.1 (26-32) pg MCHC 33.1 (32-36) g/dL RDW 14.9 H (11.5-14.0) % Plt Count 102 L (150-450) x10^3/uL MPV 10.9 (7.5-11.0) fL Gran % 78.1 H (36.0-66.0) % Immature Gran % (Auto) 0.5 H (0.00-0.4) % Nucleat RBC Rel Count 0.0 (0.00-0.1) % Eos # (Auto) 0.08 (0-0.5) x10^3/uL Immature Gran # (Auto) 0.05 H (0.00-0.03) x10^3u/L Absolute Lymphs (auto) 1.86 (1.0-4.6) x10^3/uL Absolute Monos (auto) 0.37 (0.0-1.3) x10^3/uL Absolute Nucleated RBC 0.00 (0.00-0.01) x10^3u/L Lymphocytes % 17.0 L (24.0-44.0) % Monocytes % 3.4 (0.0-12.0) % Eosinophils % 0.7 (0.00-5.0) % Basophils % 0.3 (0.0-0.4) % Absolute Granulocytes 8.52 H (1.4-6.9) x10^3/uL Basophils # 0.03 (0-0.4) x10^3/uL Sodium 132 L (135-145) mmol/L Potassium 3.3 L (3.5-5.1) mmol/L Chloride 91 L (98-107) mmol/L Carbon Dioxide 32 H (22-30) mmol/L Anion Gap 12.2 (5-15) MEQ/L BUN 33 H (7-17) mg/dL Creatinine 2.08 H (0.52-1.04) mg/dL Estimated GFR 28.5 ML/MIN Glucose 118 H (74-106) mg/dL Lactic Acid (0.4-2.0) Calcium 9.5 (8.4-10.2) mg/dL Total Bilirubin 1.60 H (0.2-1.3) mg/dL AST 141 H (14-36) U/L ALT 127 H (0-35) U/L Alkaline Phosphatase 136 H (38-126) U/L Ammonia (9-30) umol/L Troponin I (0.000-0.033) ng/mL Serum Total Protein 8.1 (6.3-8.2) g/dL Albumin 4.0 (3.5-5.0) g/dL Lipase 210 (23-300) U/L Urine Color (Yellow) Urine Appearance (Clear) Urine pH (4.6-8.0) Ur Specific Hume (1.005-1.030) Urine Protein (Negative) Urine Glucose (UA) (Negative) mg/dL Urine Ketones (Negative) Urine Blood (Negative) Urine Nitrite (Negative) Urine Bilirubin (Negative) Urine Urobilinogen (0.2) mg/dL Ur Leukocyte Esterase (Negative) U Hyaline Cast (Auto) (0-2) /LPF Urine Microscopic RBC (0-5) /HPF Urine Microscopic WBC (0-5) /HPF Ur Epithelial Cells (None Seen) /HPF Urine Bacteria (None Seen) /HPF Urine Culture Reflexed (NO) Salicylates < 1.0 L (2-20) mg/dL Urine Opiates Level NEGATIVE (NEGATIVE) Ur Methadone NEGATIVE (NEGATIVE) Acetaminophen < 10 L (10-30) ug/ml Urine Barbiturates NEGATIVE (NEGATIVE) Ur Phencyclidine (PCP) NEGATIVE (NEGATIVE) Urine Amphetamine NEGATIVE (NEGATIVE) U Benzodiazepine Level NEGATIVE (NEGATIVE) Urine Cocaine NEGATIVE (NEGATIVE) Urine Marijuana (THC) POSITIVE A (NEGATIVE) Ethyl Alcohol < 10 (0-10) mg/dL Slides for Path Review YES 08/23/23 Range/Units 09:31 WBC (4.0-10.5) x10^3/uL RBC (4.1-5.4) x10^6/uL Hgb (12.0-16.0) g/dL Hct (35-47) % MCV (78-100) fL MCH (26-32) pg MCHC (32-36) g/dL RDW (11.5-14.0) % Plt Count (150-450) x10^3/uL MPV (7.5-11.0) fL Gran % (36.0-66.0) % Immature Gran % (Auto) (0.00-0.4) % Nucleat RBC Rel Count (0.00-0.1) % Eos # (Auto) (0-0.5) x10^3/uL Immature Gran # (Auto) (0.00-0.03) x10^3u/L Absolute Lymphs (auto) (1.0-4.6) x10^3/uL Absolute Monos (auto) (0.0-1.3) x10^3/uL Absolute Nucleated RBC (0.00-0.01) x10^3u/L Lymphocytes % (24.0-44.0) % Monocytes % (0.0-12.0) % Eosinophils % (0.00-5.0) % Basophils % (0.0-0.4) % Absolute Granulocytes (1.4-6.9) x10^3/uL Basophils # (0-0.4) x10^3/uL Sodium (135-145) mmol/L Potassium (3.5-5.1) mmol/L Chloride (98-107) mmol/L Carbon Dioxide (22-30) mmol/L Anion Gap (5-15) MEQ/L BUN (7-17) mg/dL Creatinine (0.52-1.04) mg/dL Estimated GFR ML/MIN Glucose (74-106) mg/dL Lactic Acid (0.4-2.0) Calcium (8.4-10.2) mg/dL Total Bilirubin (0.2-1.3) mg/dL AST (14-36) U/L ALT (0-35) U/L Alkaline Phosphatase (38-126) U/L Ammonia (9-30) umol/L Troponin I (0.000-0.033) ng/mL Serum Total Protein (6.3-8.2) g/dL Albumin (3.5-5.0) g/dL Lipase (23-300) U/L Urine Color Dark Yellow A (Yellow) Urine Appearance Turbid A (Clear) Urine pH 5.0 (4.6-8.0) Ur Specific Hume 1.025 (1.005-1.030) Urine Protein 100 A (Negative) Urine Glucose (UA) Negative (Negative) mg/dL Urine Ketones Trace A (Negative) Urine Blood Moderate A (Negative) Urine Nitrite Positive A (Negative) Urine Bilirubin Moderate A (Negative) Urine Urobilinogen 2.0 A (0.2) mg/dL Ur Leukocyte Esterase Large A (Negative) U Hyaline Cast (Auto) >50 A (0-2) /LPF Urine Microscopic RBC 11-20 A (0-5) /HPF Urine Microscopic WBC >100 A (0-5) /HPF Ur Epithelial Cells Moderate A (None Seen) /HPF Urine Bacteria Many A (None Seen) /HPF Urine Culture Reflexed YES (NO) Salicylates (2-20) mg/dL Urine Opiates Level (NEGATIVE) Ur Methadone (NEGATIVE) Acetaminophen (10-30) ug/ml Urine Barbiturates (NEGATIVE) Ur Phencyclidine (PCP) (NEGATIVE) Urine Amphetamine (NEGATIVE) U Benzodiazepine Level (NEGATIVE) Urine Cocaine (NEGATIVE) Urine Marijuana (THC) (NEGATIVE) Ethyl Alcohol (0-10) mg/dL Slides for Path Review - Progress Progress: improved Medical Desision Making - Independent Historian Additional History obtained from: Spouse - Discussion of managment Care discussed with:: hospitalist Reviewed:: Test results Agreed on:: Treatment plan, need for follow-up, place in obs Will see patient: in hospital - Risk of complications The pt has a mod risk of morbidity or mortality based on: Need for prescription drug management - Departure Departure Disposition: Observation Clinical Impression: Alcohol withdrawal syndrome, UTI (lower urinary tract infection), Polycystic kidney disease, Acute kidney injury Condition: Fair Critical Care Time: No Referrals: LAURA GOODMAN [Primary Care Provider] - Follow up/PCP as directed
[2023-08-23] MEDS ORDERED: ZOFRAN ODT 4 MG ONE (11:31)
[2023-08-23] MEDS: ZOFRAN ODT 4 MG PO PRN (11:32)
[2023-08-23 11:54] LABS: Amphetamine,Urine NEGATIVE (NEGATIVE); Barbiturate,Urine NEGATIVE (NEGATIVE); Benzodiazepine,Urine NEGATIVE (NEGATIVE); Cocaine,Urine NEGATIVE (NEGATIVE); Methadone,Urine NEGATIVE (NEGATIVE); Opiate,Urine NEGATIVE (NEGATIVE); PCP,Urine NEGATIVE (NEGATIVE); THC,Urine POSITIVE (NEGATIVE)
[2023-08-23] MEDS ORDERED: Xylocaine-Mpf 2% 5 Ml Vial ONE (13:42)
[2023-08-23] MEDS ORDERED: ROCEPHIN 1 GM / 100 ML NaCl 1 GM/100 ML IVPB IV ONE (13:53)
[2023-08-23] MEDS: ROCEPHIN 1 GM / 100 ML NaCl 1 GM/100 ML IVPB IV ONE (13:53)
[2023-08-23 13:57] LABS: Absolute Neutrophil Ct (ANC) 8.52 x10^3/uL (1.4-6.9); BASOPHIL % 0.3 % (0.0-0.4); Basophil (Absolute #) 0.03 x10^3/uL (0-0.4); Eosinophil % 0.7 % (0.00-5.0); Eosinophil (Absolute #) 0.08 x10^3/uL (0-0.5); Hemoglobin 12.9 g/dL (12.0-16.0); IMMATURE GRAN # 0.05 x10^3u/L (0.00-0.03); IMMATURE GRAN % 0.5 % (0.00-0.4); Lymphocyte (Absolute #) 1.86 x10^3/uL (1.0-4.6); Mean Corpuscular Hemoglobin 31.1 pg (26-32); Mean Corpuscular Hgb Concent. 33.1 g/dL (32-36); Mean Platelet Volume 10.9 fL (7.5-11.0); Monocyte (Absolute #) 0.37 x10^3/uL (0.0-1.3); Monocytes % 3.4 % (0.0-12.0); Neutrophil % 78.1 % (36.0-66.0); Platelet Count 102 x10^3/uL (150-450); Red Blood Count 4.15 x10^6/uL (4.1-5.4); Red Cell Distribution Width 14.9 % (11.5-14.0); White Blood Count 10.9 x10^3/uL (4.0-10.5)
[2023-08-23 14:09] LABS: ACETAMINOPHEN < 10 ug/ml (10-30); ALKALINE PHOSPHATASE 136 U/L (38-126); ANION GAP 12.2 MEQ/L (5-15); BLOOD UREA NITROGEN 33 mg/dL (7-17); CHLORIDE 91 mmol/L (98-107); Calcium 9.5 mg/dL (8.4-10.2); Carbon Dioxide 32 mmol/L (22-30); Creatinine 1 2.08 mg/dL (0.52-1.04); EST GLOMERULAR FILTRATION RATE 28.5 ML/MIN; ETHYL ALCOHOL < 10 mg/dL (0-10); Glucose 118 mg/dL (74-106); LIPASE 210 U/L (23-300); Potassium 3.3 mmol/L (3.5-5.1); SALICYLATE < 1.0 mg/dL (2-20); SGOT/AST 141 U/L (14-36); SGPT/ALT 127 U/L (0-35); SODIUM 132 mmol/L (135-145); Total Protein 8.1 g/dL (6.3-8.2)
[2023-08-23 14:28] LABS: Slide Review 1 YES
[2023-08-23] MEDS: THIAMINE 200 MG/2 ML*** 100 MG, Vitamins For Infusion 10 ML INJECTION*** 10 ML, FOLNATE... IV SCH (14:29)
--- NOTE | 2023-08-23 15:56 | PCM.HP ---
History of Present Illness - Chief Complaint Chief Complaint: Alcohol withdrawal syndrome Date: 08/23/23 History of Present Illness: is a 48 year old female with PMHX of HTN, bronchitis COPD, 2 ppd smoker, type II DM, DJD, fibromyalgia, OA, RA, heaptitis, anxiety, depression, bipolar, and polycystic renal disease. Patient reports that she recently stopped drinking alcohol and that she has been going through withdrawl symptoms x 4 days. Patient reports auditory and visual hallucinations and just feeling off. She typically drinks a fifth of whiskey daily and 2 shooters. Patient reports that she quit drinking 4 days ago and has been experiencing s/s withdrawl including; chills, sweating, nausea, vomiting, diarrhea, headache, hallucinations and sleep disturbance X 4 days now. Patient reports auditory and visual hallucinations which started 08/22/23 and states that she has not slept x 4 days even after taking her prescribed sleep medication. Patient reports pain to her head, neck and back rating it 7/10 at this time. IN ER O2 sat 88% on room air. O2 applied at 3L NC which patient reports she wears continuously at home and sats increased to 93%. Patient reports chest pain on left side of chest that is dull and comes and goes. It radiates to the right side of her chest at times. Trop X1 negative. She c/o increased shortness of breath with white frothy sputum. She is coarse throughout lung sounds. Patient has a history of chronic UTI's and states that her urine odor has been very strong recently. Patient reports that she was scheduled for a heart cath last month but was unable to have completed due to insurance reasons. Patient is a 1-2 pack a day cigarrette smoker and reports that she also smokes marijuana daily. Patient states that she has not taken her daily medications in at least 2 days. Speech is clear and appropriate although responses are delayed. She was started on rocephin in ER for a UTI and ear infection/ congestion. She reports no ear pain more congestion with muffled sound. - Review of Systems Constitutional: Weakness, No Fever, No Chills Eyes: No Symptoms Ears, Nose, & Throat: No Symptoms, Hearing Changes Respiratory: Cough, Short Of Breath Cardiac: Chest Pain, No Edema, No Syncope Abdominal/Gastrointestinal: Abdominal Pain, No Nausea, No Vomiting, No Diarrhea Genitourinary Symptoms: No Dysuria Musculoskeletal: No Back Pain, No Neck Pain Skin: No Rash Neurological: No Dizziness, No Focal Weakness, No Sensory Changes Psychological: Alcohol Abuse, Drug Abuse, Hallucinations, Mood Changes Endocrine: No Symptoms Hematologic/Lymphatic: No Symptoms Immunological/Allergic: No Symptoms Medications & Allergies Home Medications: Home Medication List Lisinopril 20 mg [Zestril 20 MG] 1 tab PO DAILY 03/21/23 [History Confirmed 08/23/23] Metoprolol Succinate 50 mg [Toprol Xl 50 MG] 1 tab PO DAILY 03/21/23 [History Confirmed 08/23/23] Asenapine Maleate 10 mg SL HS 08/23/23 [History Confirmed 08/23/23] Atorvastatin Calcium 20 mg PO DAILY 08/23/23 [History Confirmed 08/23/23] Cholecalciferol (Vitamin D3) [Vitamin D] 2,000 unit PO WEEKLY 08/23/23 [History Confirmed 08/23/23] Empagliflozin [Jardiance] 10 mg PO DAILY 08/23/23 [History Confirmed 08/23/23] Famotidine 20 mg [Pepcid 20 MG] 40 mg PO DAILY 08/23/23 [History Confirmed 08/23/23] Finerenone [Kerendia] 20 mg PO DAILY 08/23/23 [History Confirmed 08/23/23] Folic Acid 1 mg [Folate 1 mg] 1 mg PO DAILY 08/23/23 [History Confirmed 08/23/23] Icosapent Ethyl [Vascepa] 2 cap PO BID 08/23/23 [History Confirmed 08/23/23] Losartan Potassium 50 mg [Cozaar 50 MG] 50 mg PO DAILY 08/23/23 [History Confirmed 08/23/23] Magnesium Oxide 400 mg [Mag-Ox 400] 400 mg PO DAILY 08/23/23 [History Confirmed 08/23/23] Ropinirole 2Mg [Requip 2Mg Tab] 3 mg PO HS 08/23/23 [History Confirmed 08/23/23] Thiamine HCl 100 mg [Vitamin B-1 100 mg] 100 mg PO DAILY 08/23/23 [History Confirmed 08/23/23] Trazodone HCl 50 mg [Desyrel 50 mg] 200 mg PO HS 08/23/23 [History Confirmed 08/23/23] Allergies/Adverse Reactions: Allergies Allergy/AdvReac Type Severity Reaction Status Date / Time bismuth subsalicylate Allergy Mild Swelling Verified 08/23/23 09:12 [From Pepto-Bismol] sulfamethoxazole Allergy Swelling Verified 08/23/23 09:12 [From Bactrim] trimethoprim [From Bactrim] Allergy Swelling Verified 08/23/23 09:12 ANTACIDS Allergy Swelling Uncoded 08/23/23 09:12 - Past Medical History Past Medical History: Yes Neurological History: No Pertinent History ENT History: No Pertinent History Cardiac History: Hypertension Respiratory History: Bronchitis, COPD Endocrine Medical History: Diabetes Type II, Other Musculoskelatal History: Degenerative Disk Disease, Fibromyalgia, Osteoarthritis, Rheumatoid Arthritis GI Medical History: Gallbladder Disease, Hepatitis History: Other Pyscho-Social History: Anxiety, Depression Reproductive Disorders: Abnormal Uterine Bleeding, Menstrual Problems Comment: POLYCYSTIC RENAL DISEASE. Recent DM II vs insulin resistance. HX OF DRUG ABUSE - no current treatment - Past Surgical History Past Surgical History: Yes Neuro Surgical History: No Pertinent History Cardiac History: No Pertinent History Respiratory Surgery: No Pertinent History GI Surgical History: Cholecystectomy Genitourinary Surgical Hx: Other Musculskeletal Surgical Hx: Orthopedic Surgery Female Surgical History: Tubal Ligation, Other Other Surgical History: ankle, knee, uterine ablasion,knee surg, back,kidney stone removal. kidney stent 202109/02/21 Significant Family History: no pertinent family hx - Social History Smoking Status: Current every day smoker How long have you smoked: years Exposure to second hand smoke: Yes Alcohol: Daily Drug Use: marijuana - Social Determinants of Health Will the patient participate in the screening: Declined to provide - Physical Exam Vital Signs: Vital Signs - 24 hr Pulse Resp BP BP Pulse Ox 08/23/23 15:06 92 L 08/23/23 15:00 93 H 22 119/75 95 08/23/23 14:30 86 16 102/73 97 08/23/23 14:00 89 17 103/68 08/23/23 13:30 96 H 19 122/84 08/23/23 13:00 105 H 20 115/75 96 08/23/23 12:30 99 H 25 H 140/90 08/23/23 12:01 88 16 122/79 98 08/23/23 12:00 87 15 97 08/23/23 11:30 93 H 17 141/90 94 L 08/23/23 11:00 89 16 114/81 98 08/23/23 10:41 80 18 158/84 92 L 08/23/23 10:00 85 18 113/78 158/84 92 L 08/23/23 09:31 86 22 108/77 08/23/23 09:20 82 14 94/56 92 L General Appearance: alert, obese Neurologic Exam: alert, oriented x 3, cooperative, normal mood/affect, nml cerebellar function, nml station & gait, sensation nml, No motor deficits Eye Exam: PERRL/EOMI, eyes nml inspection Ears, Nose, Throat Exam: normal ENT inspection, TMs normal, pharynx normal, moist mucous membranes Neck Exam: normal inspection, non-tender, supple, full range of motion Respiratory Exam: crackles/rales, No respiratory distress Cardiovascular Exam: regular rate/rhythm, normal heart sounds, normal peripheral pulses Gastrointestinal/Abdomen Exam: soft, normal bowel sounds, tenderness, distention, No mass Back Exam: normal inspection, decreased range of motion (chronic pain per pt), No CVA tenderness, No vertebral tenderness Extremity Exam: normal inspection, normal range of motion, pelvis stable Skin Exam: normal color, warm, dry, No rash Lymphatic Exam: No adenopathy Results - Labs Lab/Micro Results: Lab Results-Last 24 Hours 08/23/23 08/23/23 08/23/23 Range/Units 09:31 09:35 13:38 WBC 10.9 H (4.0-10.5) x10^3/uL RBC 4.15 (4.1-5.4) x10^6/uL Hgb 12.9 (12.0-16.0) g/dL Hct 39.0 (35-47) % MCV 94.0 (78-100) fL MCH 31.1 (26-32) pg MCHC 33.1 (32-36) g/dL RDW 14.9 H (11.5-14.0) % Plt Count 102 L (150-450) x10^3/uL MPV 10.9 (7.5-11.0) fL Gran % 78.1 H (36.0-66.0) % Immature Gran % (Auto) 0.5 H (0.00-0.4) % Nucleat RBC Rel Count 0.0 (0.00-0.1) % Eos # (Auto) 0.08 (0-0.5) x10^3/uL Immature Gran # (Auto) 0.05 H (0.00-0.03) x10^3u/L Absolute Lymphs (auto) 1.86 (1.0-4.6) x10^3/uL Absolute Monos (auto) 0.37 (0.0-1.3) x10^3/uL Absolute Nucleated RBC 0.00 (0.00-0.01) x10^3u/L Lymphocytes % 17.0 L (24.0-44.0) % Monocytes % 3.4 (0.0-12.0) % Eosinophils % 0.7 (0.00-5.0) % Basophils % 0.3 (0.0-0.4) % Absolute Granulocytes 8.52 H (1.4-6.9) x10^3/uL Basophils # 0.03 (0-0.4) x10^3/uL Sodium (135-145) mmol/L Potassium (3.5-5.1) mmol/L Chloride (98-107) mmol/L Carbon Dioxide (22-30) mmol/L Anion Gap (5-15) MEQ/L BUN (7-17) mg/dL Creatinine (0.52-1.04) mg/dL Estimated GFR ML/MIN Glucose (74-106) mg/dL Lactic Acid (0.4-2.0) Calcium (8.4-10.2) mg/dL Total Bilirubin (0.2-1.3) mg/dL AST (14-36) U/L ALT (0-35) U/L Alkaline Phosphatase (38-126) U/L Ammonia (9-30) umol/L Troponin I (0.000-0.033) ng/mL Serum Total Protein (6.3-8.2) g/dL Albumin (3.5-5.0) g/dL Lipase (23-300) U/L Urine Color Dark Yellow A (Yellow) Urine Appearance Turbid A (Clear) Urine pH 5.0 (4.6-8.0) Ur Specific [place] 1.025 (1.005-1.030) Urine Protein 100 A (Negative) Urine Glucose (UA) Negative (Negative) mg/dL Urine Ketones Trace A (Negative) Urine Blood Moderate A (Negative) Urine Nitrite Positive A (Negative) Urine Bilirubin Moderate A (Negative) Urine Urobilinogen 2.0 A (0.2) mg/dL Ur Leukocyte Esterase Large A (Negative) U Hyaline Cast (Auto) >50 A (0-2) /LPF Urine Microscopic RBC 11-20 A (0-5) /HPF Urine Microscopic WBC >100 A (0-5) /HPF Ur Epithelial Cells Moderate A (None Seen) /HPF Urine Bacteria Many A (None Seen) /HPF Urine Culture Reflexed YES (NO) Salicylates (2-20) mg/dL Urine Opiates Level NEGATIVE (NEGATIVE) Ur Methadone NEGATIVE (NEGATIVE) Acetaminophen (10-30) ug/ml Urine Barbiturates NEGATIVE (NEGATIVE) Ur Phencyclidine (PCP) NEGATIVE (NEGATIVE) Urine Amphetamine NEGATIVE (NEGATIVE) U Benzodiazepine Level NEGATIVE (NEGATIVE) Urine Cocaine NEGATIVE (NEGATIVE) Urine Marijuana (THC) POSITIVE A (NEGATIVE) Ethyl Alcohol (0-10) mg/dL Slides for Path Review YES 08/23/23 08/23/23 08/23/23 Range/Units 13:38 13:38 13:50 WBC (4.0-10.5) x10^3/uL RBC (4.1-5.4) x10^6/uL Hgb (12.0-16.0) g/dL Hct (35-47) % MCV (78-100) fL MCH (26-32) pg MCHC (32-36) g/dL RDW (11.5-14.0) % Plt Count (150-450) x10^3/uL MPV (7.5-11.0) fL Gran % (36.0-66.0) % Immature Gran % (Auto) (0.00-0.4) % Nucleat RBC Rel Count (0.00-0.1) % Eos # (Auto) (0-0.5) x10^3/uL Immature Gran # (Auto) (0.00-0.03) x10^3u/L Absolute Lymphs (auto) (1.0-4.6) x10^3/uL Absolute Monos (auto) (0.0-1.3) x10^3/uL Absolute Nucleated RBC (0.00-0.01) x10^3u/L Lymphocytes % (24.0-44.0) % Monocytes % (0.0-12.0) % Eosinophils % (0.00-5.0) % Basophils % (0.0-0.4) % Absolute Granulocytes (1.4-6.9) x10^3/uL Basophils # (0-0.4) x10^3/uL Sodium 132 L (135-145) mmol/L Potassium 3.3 L (3.5-5.1) mmol/L Chloride 91 L (98-107) mmol/L Carbon Dioxide 32 H (22-30) mmol/L Anion Gap 12.2 (5-15) MEQ/L BUN 33 H (7-17) mg/dL Creatinine 2.08 H (0.52-1.04) mg/dL Estimated GFR 28.5 ML/MIN Glucose 118 H (74-106) mg/dL Lactic Acid 1.0 (0.4-2.0) Calcium 9.5 (8.4-10.2) mg/dL Total Bilirubin 1.60 H (0.2-1.3) mg/dL AST 141 H (14-36) U/L ALT 127 H (0-35) U/L Alkaline Phosphatase 136 H (38-126) U/L Ammonia (9-30) umol/L Troponin I < 0.012 (0.000-0.033) ng/mL Serum Total Protein 8.1 (6.3-8.2) g/dL Albumin 4.0 (3.5-5.0) g/dL Lipase 210 (23-300) U/L Urine Color (Yellow) Urine Appearance (Clear) Urine pH (4.6-8.0) Ur Specific [place] (1.005-1.030) Urine Protein (Negative) Urine Glucose (UA) (Negative) mg/dL Urine Ketones (Negative) Urine Blood (Negative) Urine Nitrite (Negative) Urine Bilirubin (Negative) Urine Urobilinogen (0.2) mg/dL Ur Leukocyte Esterase (Negative) U Hyaline Cast (Auto) (0-2) /LPF Urine Microscopic RBC (0-5) /HPF Urine Microscopic WBC (0-5) /HPF Ur Epithelial Cells (None Seen) /HPF Urine Bacteria (None Seen) /HPF Urine Culture Reflexed (NO) Salicylates < 1.0 L (2-20) mg/dL Urine Opiates Level (NEGATIVE) Ur Methadone (NEGATIVE) Acetaminophen < 10 L (10-30) ug/ml Urine Barbiturates (NEGATIVE) Ur Phencyclidine (PCP) (NEGATIVE) Urine Amphetamine (NEGATIVE) U Benzodiazepine Level (NEGATIVE) Urine Cocaine (NEGATIVE) Urine Marijuana (THC) (NEGATIVE) Ethyl Alcohol < 10 (0-10) mg/dL Slides for Path Review 08/23/23 Range/Units 14:08 WBC (4.0-10.5) x10^3/uL RBC (4.1-5.4) x10^6/uL Hgb (12.0-16.0) g/dL Hct (35-47) % MCV (78-100) fL MCH (26-32) pg MCHC (32-36) g/dL RDW (11.5-14.0) % Plt Count (150-450) x10^3/uL MPV (7.5-11.0) fL Gran % (36.0-66.0) % Immature Gran % (Auto) (0.00-0.4) % Nucleat RBC Rel Count (0.00-0.1) % Eos # (Auto) (0-0.5) x10^3/uL Immature Gran # (Auto) (0.00-0.03) x10^3u/L Absolute Lymphs (auto) (1.0-4.6) x10^3/uL Absolute Monos (auto) (0.0-1.3) x10^3/uL Absolute Nucleated RBC (0.00-0.01) x10^3u/L Lymphocytes % (24.0-44.0) % Monocytes % (0.0-12.0) % Eosinophils % (0.00-5.0) % Basophils % (0.0-0.4) % Absolute Granulocytes (1.4-6.9) x10^3/uL Basophils # (0-0.4) x10^3/uL Sodium (135-145) mmol/L Potassium (3.5-5.1) mmol/L Chloride (98-107) mmol/L Carbon Dioxide (22-30) mmol/L Anion Gap (5-15) MEQ/L BUN (7-17) mg/dL Creatinine (0.52-1.04) mg/dL Estimated GFR ML/MIN Glucose (74-106) mg/dL Lactic Acid (0.4-2.0) Calcium (8.4-10.2) mg/dL Total Bilirubin (0.2-1.3) mg/dL AST (14-36) U/L ALT (0-35) U/L Alkaline Phosphatase (38-126) U/L Ammonia < 9 L (9-30) umol/L Troponin I (0.000-0.033) ng/mL Serum Total Protein (6.3-8.2) g/dL Albumin (3.5-5.0) g/dL Lipase (23-300) U/L Urine Color (Yellow) Urine Appearance (Clear) Urine pH (4.6-8.0) Ur Specific [place] (1.005-1.030) Urine Protein (Negative) Urine Glucose (UA) (Negative) mg/dL Urine Ketones (Negative) Urine Blood (Negative) Urine Nitrite (Negative) Urine Bilirubin (Negative) Urine Urobilinogen (0.2) mg/dL Ur Leukocyte Esterase (Negative) U Hyaline Cast (Auto) (0-2) /LPF Urine Microscopic RBC (0-5) /HPF Urine Microscopic WBC (0-5) /HPF Ur Epithelial Cells (None Seen) /HPF Urine Bacteria (None Seen) /HPF Urine Culture Reflexed (NO) Salicylates (2-20) mg/dL Urine Opiates Level (NEGATIVE) Ur Methadone (NEGATIVE) Acetaminophen (10-30) ug/ml Urine Barbiturates (NEGATIVE) Ur Phencyclidine (PCP) (NEGATIVE) Urine Amphetamine (NEGATIVE) U Benzodiazepine Level (NEGATIVE) Urine Cocaine (NEGATIVE) Urine Marijuana (THC) (NEGATIVE) Ethyl Alcohol (0-10) mg/dL Slides for Path Review - Radiology Impressions Radiology Exams & Impressions: Radiology Procedures Category Date Time Status ABDOMEN AND PELVIS W/0 CONTRAS [CT] Stat Exams 08/23/23 09:35 Completed CHEST 1 VIEW (PORTABLE) Stat Exams 08/23/23 10:08 Completed HEAD WITHOUT CONTRAST [CT] Stat Exams 08/23/23 09:32 Completed - Other Procedures and Tests Respiratory Therapy 08/23/23 15:07 Oxygen Nasal Cannula 2 lpm Assessment/Plan (1) UTI (lower urinary tract infection) Current Visit: Yes Status: Acute Assessment & Plan: - Rocephin started in ER - continue - UC pending Code(s): N39.0 - URINARY TRACT INFECTION, SITE NOT SPECIFIED (2) PHUONG (acute kidney injury) Current Visit: Yes Status: Acute Assessment & Plan: - HX polycystic kidney disease. - IVF - creat 2.08- unknown baseline- no old labs to review - Hold BP meds except beta stephanie - hold Jardiance and statin Code(s): N17.9 - ACUTE KIDNEY FAILURE, UNSPECIFIED (3) Hallucinations Current Visit: Yes Status: Acute Assessment & Plan: - 2:2 ETOH withdrawl and UTI - psych consult Code(s): R44.3 - HALLUCINATIONS, UNSPECIFIED (4) Depression with anxiety Current Visit: Yes Status: Chronic Assessment & Plan: - Continue home meds - denies homicidal or suicidal ideation - psych consult Code(s): F41.8 - OTHER SPECIFIED ANXIETY DISORDERS (5) Bipolar 1 disorder Current Visit: Yes Status: Chronic Assessment & Plan: - continue home meds Code(s): F31.9 - BIPOLAR DISORDER, UNSPECIFIED (6) HTN (hypertension) Current Visit: Yes Status: Acute Assessment & Plan: - stable - Continue beta stephanie, hold other meds d/t phuong Code(s): I10 - ESSENTIAL (PRIMARY) HYPERTENSION (7) Hypokalemia Current Visit: Yes Status: Acute Assessment & Plan: - K+ 3.3- replaced IV - recheck in AM Code(s): E87.6 - HYPOKALEMIA (8) Marijuana abuse Current Visit: Yes Status: Chronic Assessment & Plan: - chronic - advised cessation Code(s): F12.10 - CANNABIS ABUSE, UNCOMPLICATED (9) Hyponatremia Current Visit: Yes Status: Acute Assessment & Plan: - Mild Na+ 132 - IVF Code(s): E87.1 - HYPO-OSMOLALITY AND HYPONATREMIA (10) Thrombocytopenia Current Visit: Yes Status: Chronic Assessment & Plan: - Plt 102 - no old labs to review - Will need OP f/u with hematology at D/C - reports she has seen hematology in the past at [facility] when admitted last and had this dx (11) Alcohol withdrawal syndrome Current Visit: Yes Status: Acute Qualifiers: Complication of substance-induced condition: with delirium Qualified Code(s): F10.931 - Alcohol use, unspecified with withdrawal delirium Assessment & Plan: - [facility] protocol - seizure precautions - Tele Code(s): F10.939 - ALCOHOL USE, UNSPECIFIED WITH WITHDRAWAL, UNSPECIFIED (12) COPD (chronic obstructive pulmonary disease) Current Visit: Yes Status: Acute Assessment & Plan: - acute on chronic exacerbation - Cough with frothy white sputum - albuterol, duonebs, advair - On baseline 3lNC 95% - ceftriaxone - CXR: Portable chest now demonstrates borderline cardiomegaly. Lungs inflated and clear. Bony thorax intact. No acute findings.. (13) Smoker Current Visit: Yes Status: Chronic Assessment & Plan: - advised cessation - nicotine patch Code(s): F17.200 - NICOTINE DEPENDENCE, UNSPECIFIED, UNCOMPLICATED (14) Sinus pressure Current Visit: Yes Status: Acute Assessment & Plan: - Zyrtec at night Code(s): J34.89 - OTHER SPECIFIED DISORDERS OF NOSE AND NASAL SINUSES (15) Abdominal pain Current Visit: Yes Status: Acute Assessment & Plan: - With N/V/D - Stool sample - PRN med for N/V - clear liquid diet - CT Abd/pelvis Impression: 1. Again chronic findings including sigmoid diverticulosis, fatty hepatomegaly, chronic pancreatitis microcalcifications, polycystic kidney disease, nonobstructing bilateral renal micro-calculi, arteriosclerotic disease, and chronic bony findings. 2. No new/acute intra-abdominal or pelvic abnormalities on this noncontrast exam. Code(s): R10.9 - UNSPECIFIED ABDOMINAL PAIN (16) Fatty liver Current Visit: Yes Status: Acute Assessment & Plan: - As seen on CT - 2:2 ETOH abuse - AST 141, ALT 127 - Abd distended, and feels tight per pt- Abd US - may need paracentesis Code(s): K76.0 - FATTY (CHANGE OF) LIVER, NOT ELSEWHERE CLASSIFIED (17) Pancreatic lesion Current Visit: Yes Status: Acute Assessment & Plan: - multiple lesions seen on CT -US for further eval - lipase 210 Code(s): K86.9 - DISEASE OF PANCREAS, UNSPECIFIED (18) Obesity (BMI 30-39.9) Current Visit: Yes Status: Chronic Assessment & Plan: - advised ADA diet and exercise control Code(s): E66.9 - OBESITY, UNSPECIFIED (19) Chest pain Current Visit: Yes Status: Acute Assessment & Plan: - trop x1 negative- trend - tele - EKG - 2:2 COPD? VTE: SCD PPI: Pepcid Next of KIN: D/C plan: 1-2 days Code status: Full Code(s): R07.9 - CHEST PAIN, UNSPECIFIED Telemedicine Encounter - Telemedicine Encounter Telemedicine Encounter: The entirety of this encounter was performed via Telemedicine"
[2023-08-23] MEDS ORDERED: VENTOLIN COMMON CANISTER IH PRN (16:46)
[2023-08-23] MEDS ORDERED: MEDICATION INTERVENTION MC SCH ×3 (17:30)
[2023-08-23] MEDS: DUONEB 0.5-3 MG/3 ml Neb IH SCH (17:30)
[2023-08-23] MEDS: Advair Hfa 230/21 Mcg COMMON CANISTER IH SCH (17:36)
[2023-08-23] MEDS: VALIUM 10 MG/2 ML SYRINGE IV PRN (18:43)
[2023-08-23] MEDS: TYLENOL 325 MG PO PRN (18:45)
[2023-08-23] MEDS: Nicoderm CQ 21 MG TOP SCH (18:46)
[2023-08-23] MEDS: POTASSIUM CHLORIDE 20 mEq IN WATER 100ML 100 ML IV SCH (18:46)
[2023-08-23] MEDS: Sodium Chloride 0.9% 1000 ML 1,000 ML IV SCH (18:56)
[2023-08-23] MEDS ORDERED: ADVAIR 500-50 DISKUS IH SCH (19:00)
[2023-08-23] MEDS: Sodium Chloride 0.9% 1000 ML 1,000 ML IV STA (19:52)
[2023-08-23] MEDS: Zofran 4 MG/2 ML VIAL IV ONE (19:52)
[2023-08-23] MEDS: Ativan 2 MG/1 ML VIAL IV ONE (19:52)
[2023-08-23] MEDS: REQUIP 2MG TAB PO SCH (21:34)
[2023-08-23] MEDS ORDERED: ASENAPINE MALEATE 10 MG SL SCH (22:00)
[2023-08-23] MEDS ORDERED: NON-FORMULARY ITEM (Icosapent Ethyl [Vascepa] 1 GM Capsule) PO SCH (22:00)
[2023-08-23] MEDS: DESYREL 50 MG PO SCH (22:02)
[2023-08-23] MEDS: Desyrel 150 MG PO SCH (22:02)
[2023-08-23] MEDS: VITAMIN D PO SCH (22:03)
[2023-08-23] MEDS: CLARITIN 10 MG PO SCH (22:03)
[2023-08-24] MEDS: Zofran 4 MG/2 ML VIAL IV PRN (03:38)
[2023-08-24 07:31] LABS: Hematocrit 36.1 % (35-47); Hemoglobin 11.6 g/dL (12.0-16.0); Mean Cell Volume 96.8 fL (78-100); Mean Corpuscular Hemoglobin 31.1 pg (26-32); Mean Corpuscular Hgb Concent. 32.1 g/dL (32-36); Mean Platelet Volume 10.9 fL (7.5-11.0); Platelet Count 97 x10^3/uL (150-450); Red Blood Count 3.73 x10^6/uL (4.1-5.4); Red Cell Distribution Width 14.8 % (11.5-14.0); White Blood Count 7.1 x10^3/uL (4.0-10.5)
[2023-08-24 07:43] LABS: ALBUMIN 3.4 g/dL (3.5-5.0); ANION GAP 9.2 MEQ/L (5-15); BILIRUBIN,TOTAL 1.2 mg/dL (0.2-1.3); Calcium 8.3 mg/dL (8.4-10.2); Potassium 3.8 mmol/L (3.5-5.1); Total Protein 6.9 g/dL (6.3-8.2)
[2023-08-24 08:03] LABS: Creatinine 1 1.47 mg/dL (0.52-1.04); EST GLOMERULAR FILTRATION RATE 43.2 ML/MIN
[2023-08-24 08:27] LABS: Slide Review YES
--- NOTE | 2023-08-24 09:15 | PCM.NOTE ---
Date and Time: 08/24/23 0857 Subjective Assessment: 08/23/23 is a 48 year old female with PMHX of HTN, bronchitis COPD, 2 ppd smoker, type II DM, DJD, fibromyalgia, OA, RA, hepatitis, anxiety, depression, bipolar, and polycystic renal disease. Patient reports that she recently stopped drinking alcohol and that she has been going through withdrawal symptoms x 4 days. Patient reports auditory and visual hallucinations and just feeling off. She typically drinks a fifth of whiskey daily and 2 shooters. Patient reports that she quit drinking 4 days ago and has been experiencing s/s withdrawal including; chills, sweating, nausea, vomiting, diarrhea, headache, hallucinations and sleep disturbance X 4 days now. Patient reports auditory and visual hallucinations which started 08/22/23 and states that she has not slept x 4 days even after taking her prescribed sleep medication. Patient reports pain to her head, neck and back rating it 7/10 at this time. IN ER O2 sat 88% on room air. O2 applied at 3L NC which patient reports she wears continuously at home and sats increased to 93%. Patient reports chest pain on left side of chest that is dull and comes and goes. It radiates to the right side of her chest at times. Trop X1 negative. She c/o increased shortness of breath with white frothy sputum. She is coarse throughout lung sounds. Patient has a history of chronic UTI's and states that her urine odor has been very strong recently. Patient reports that she was scheduled for a heart cath last month but was unable to have completed due to insurance reasons. Patient is a 1-2 pack a day cigarette smoker and reports that she also smokes marijuana daily. Patient states that she has not taken her daily medications in at least 2 days. Speech is clear and appropriate although responses are delayed. She was started on Rocephin in ER for a UTI and ear infection/ congestion. She reports no ear pain more congestion with muffled sound. 08/24/23 Pt resting in bed. She is rather sleepy today. She is c/o being hungry and would like to eat. She is scheduled for an US today as she has continued abd. distension, and tightness. Discussed depending on the findings of US she may be able to eat afterwards. Discussed hx of hepatitis and she reports no known hx. Her thinks this is assumption made by ER r/t her drinking hx. Hepatitis profile ordered. PHUONG improving with IVF. UC pending, results so far show gram +. Continue antibiotics for UTI, Psych consulted and recommendation was to f/u with [facility] OP. Pt denies homicidal or suicidal ideation. Stool culture negative, probiotics started. She admits to nausea this AM, no vomiting. She denies CP, SOB. - Review of Systems Constitutional: No Fever, No Chills Eyes: No Symptoms Ears, Nose, & Throat: No Symptoms Respiratory: No Cough, No Short Of Breath Cardiac: No Chest Pain, No Edema, No Syncope Abdominal/Gastrointestinal: Abdominal Pain, Nausea, No Vomiting, No Diarrhea Genitourinary Symptoms: Dysuria Musculoskeletal: Back Pain, No Neck Pain Skin: No Rash Neurological: No Dizziness, No Focal Weakness, No Sensory Changes Psychological: Alcohol Abuse, Drug Abuse, Anxiety, Depression, Emotional Lability, Mood Changes Endocrine: No Symptoms Hematologic/Lymphatic: No Symptoms Immunological/Allergic: No Symptoms Objective Exam General Appearance: no apparent distress, lethargy, obese Neurologic Exam: alert, oriented x 3, nml cerebellar function, sensation nml, agitation, No motor deficits Skin Exam: normal color, warm, dry Eye Exam: PERRL, EOMI, eyes nml inspection Ears, Nose, Throat Exam: normal ENT inspection, pharynx normal, moist mucous membranes Neck Exam: normal inspection, non-tender, supple, full range of motion Respiratory Exam: normal breath sounds, crackles/rales (RUL), No respiratory distress Cardiovascular Exam: regular rate/rhythm, normal heart sounds Gastrointestinal/Abdomen Exam: tenderness, distention, organomegaly (liver), No mass Extremity Exam: normal inspection, normal range of motion Back Exam: normal inspection, decreased range of motion (lumabr back- chronic pain per pt), No CVA tenderness, No vertebral tenderness Pelvic Exam: deferred Rectal Exam: deferred Objective Data Vital Signs: Vital Signs - 24 hr Temp Pulse Resp BP BP Pulse Ox 08/24/23 07:52 96.6 F 84 20 134/66 99 08/24/23 07:13 89 20 99 08/24/23 04:00 97.0 F 87 16 141/75 92 L 08/24/23 03:37 82 20 08/24/23 00:00 16 08/23/23 23:38 95.9 F 84 16 80/43 90 L 08/23/23 22:10 84 22 08/23/23 20:00 22 08/23/23 18:43 95 H 17 126/72 08/23/23 17:44 88 18 95 08/23/23 16:47 95 H 18 95 08/23/23 16:23 95 08/23/23 16:10 98.3 F 87 18 135/89 93 L 08/23/23 15:06 92 L 08/23/23 15:00 93 H 22 119/75 95 08/23/23 14:30 86 16 102/73 97 08/23/23 14:00 89 17 103/68 08/23/23 13:30 96 H 19 122/84 08/23/23 13:00 105 H 20 115/75 96 08/23/23 12:30 99 H 25 H 140/90 08/23/23 12:01 88 16 122/79 98 08/23/23 12:00 87 15 97 08/23/23 11:30 93 H 17 141/90 94 L 08/23/23 11:00 89 16 114/81 98 08/23/23 10:41 80 18 158/84 92 L 08/23/23 10:00 85 18 113/78 158/84 92 L 08/23/23 09:31 86 22 108/77 08/23/23 09:20 82 14 94/56 92 L Pain Assessment - Last Documented Pain Intensity 0 Pain Scale Used 0-10 Pain Scale Intake and Output: Intake & Output 08/21/23 08/22/23 08/23/23 08/24/23 11:59 11:59 11:59 11:59 Intake Total 431 Balance 431 Weight 102.9 kg 100 kg Lab Results: Lab Results-Last 24 Hours 08/23/23 08/23/23 08/23/23 Range/Units 09:31 09:35 13:38 WBC 10.9 H (4.0-10.5) x10^3/uL RBC 4.15 (4.1-5.4) x10^6/uL Hgb 12.9 (12.0-16.0) g/dL Hct 39.0 (35-47) % MCV 94.0 (78-100) fL MCH 31.1 (26-32) pg MCHC 33.1 (32-36) g/dL RDW 14.9 H (11.5-14.0) % Plt Count 102 L (150-450) x10^3/uL MPV 10.9 (7.5-11.0) fL Gran % 78.1 H (36.0-66.0) % Immature Gran % (Auto) 0.5 H (0.00-0.4) % Nucleat RBC Rel Count 0.0 (0.00-0.1) % Eos # (Auto) 0.08 (0-0.5) x10^3/uL Immature Gran # (Auto) 0.05 H (0.00-0.03) x10^3u/L Absolute Lymphs (auto) 1.86 (1.0-4.6) x10^3/uL Absolute Monos (auto) 0.37 (0.0-1.3) x10^3/uL Absolute Nucleated RBC 0.00 (0.00-0.01) x10^3u/L Lymphocytes % 17.0 L (24.0-44.0) % Monocytes % 3.4 (0.0-12.0) % Eosinophils % 0.7 (0.00-5.0) % Basophils % 0.3 (0.0-0.4) % Absolute Granulocytes 8.52 H (1.4-6.9) x10^3/uL Basophils # 0.03 (0-0.4) x10^3/uL Sodium (135-145) mmol/L Potassium (3.5-5.1) mmol/L Chloride (98-107) mmol/L Carbon Dioxide (22-30) mmol/L Anion Gap (5-15) MEQ/L BUN (7-17) mg/dL Creatinine (0.52-1.04) mg/dL Estimated GFR ML/MIN Glucose (74-106) mg/dL POC Glucometer (74 to 106) mg/dL Lactic Acid (0.4-2.0) Calcium (8.4-10.2) mg/dL Magnesium (1.6-2.3) mg/dL Total Bilirubin (0.2-1.3) mg/dL AST (14-36) U/L ALT (0-35) U/L Alkaline Phosphatase (38-126) U/L Ammonia (9-30) umol/L Troponin I (0.000-0.033) ng/mL Serum Total Protein (6.3-8.2) g/dL Albumin (3.5-5.0) g/dL Lipase (23-300) U/L Urine Color Dark Yellow A (Yellow) Urine Appearance Turbid A (Clear) Urine pH 5.0 (4.6-8.0) Ur Specific [place] 1.025 (1.005-1.030) Urine Protein 100 A (Negative) Urine Glucose (UA) Negative (Negative) mg/dL Urine Ketones Trace A (Negative) Urine Blood Moderate A (Negative) Urine Nitrite Positive A (Negative) Urine Bilirubin Moderate A (Negative) Urine Urobilinogen 2.0 A (0.2) mg/dL Ur Leukocyte Esterase Large A (Negative) U Hyaline Cast (Auto) >50 A (0-2) /LPF Urine Microscopic RBC 11-20 A (0-5) /HPF Urine Microscopic WBC >100 A (0-5) /HPF Ur Epithelial Cells Moderate A (None Seen) /HPF Urine Bacteria Many A (None Seen) /HPF Urine Culture Reflexed YES (NO) Salicylates (2-20) mg/dL Urine Opiates Level NEGATIVE (NEGATIVE) Ur Methadone NEGATIVE (NEGATIVE) Acetaminophen (10-30) ug/ml Urine Barbiturates NEGATIVE (NEGATIVE) Ur Phencyclidine (PCP) NEGATIVE (NEGATIVE) Urine Amphetamine NEGATIVE (NEGATIVE) U Benzodiazepine Level NEGATIVE (NEGATIVE) Urine Cocaine NEGATIVE (NEGATIVE) Urine Marijuana (THC) POSITIVE A (NEGATIVE) Ethyl Alcohol (0-10) mg/dL Slides for Path Review YES 08/23/23 08/23/23 08/23/23 Range/Units 13:38 13:38 13:50 WBC (4.0-10.5) x10^3/uL RBC (4.1-5.4) x10^6/uL Hgb (12.0-16.0) g/dL Hct (35-47) % MCV (78-100) fL MCH (26-32) pg MCHC (32-36) g/dL RDW (11.5-14.0) % Plt Count (150-450) x10^3/uL MPV (7.5-11.0) fL Gran % (36.0-66.0) % Immature Gran % (Auto) (0.00-0.4) % Nucleat RBC Rel Count (0.00-0.1) % Eos # (Auto) (0-0.5) x10^3/uL Immature Gran # (Auto) (0.00-0.03) x10^3u/L Absolute Lymphs (auto) (1.0-4.6) x10^3/uL Absolute Monos (auto) (0.0-1.3) x10^3/uL Absolute Nucleated RBC (0.00-0.01) x10^3u/L Lymphocytes % (24.0-44.0) % Monocytes % (0.0-12.0) % Eosinophils % (0.00-5.0) % Basophils % (0.0-0.4) % Absolute Granulocytes (1.4-6.9) x10^3/uL Basophils # (0-0.4) x10^3/uL Sodium 132 L (135-145) mmol/L Potassium 3.3 L (3.5-5.1) mmol/L Chloride 91 L (98-107) mmol/L Carbon Dioxide 32 H (22-30) mmol/L Anion Gap 12.2 (5-15) MEQ/L BUN 33 H (7-17) mg/dL Creatinine 2.08 H (0.52-1.04) mg/dL Estimated GFR 28.5 ML/MIN Glucose 118 H (74-106) mg/dL POC Glucometer (74 to 106) mg/dL Lactic Acid 1.0 (0.4-2.0) Calcium 9.5 (8.4-10.2) mg/dL Magnesium (1.6-2.3) mg/dL Total Bilirubin 1.60 H (0.2-1.3) mg/dL AST 141 H (14-36) U/L ALT 127 H (0-35) U/L Alkaline Phosphatase 136 H (38-126) U/L Ammonia (9-30) umol/L Troponin I < 0.012 (0.000-0.033) ng/mL Serum Total Protein 8.1 (6.3-8.2) g/dL Albumin 4.0 (3.5-5.0) g/dL Lipase 210 (23-300) U/L Urine Color (Yellow) Urine Appearance (Clear) Urine pH (4.6-8.0) Ur Specific [place] (1.005-1.030) Urine Protein (Negative) Urine Glucose (UA) (Negative) mg/dL Urine Ketones (Negative) Urine Blood (Negative) Urine Nitrite (Negative) Urine Bilirubin (Negative) Urine Urobilinogen (0.2) mg/dL Ur Leukocyte Esterase (Negative) U Hyaline Cast (Auto) (0-2) /LPF Urine Microscopic RBC (0-5) /HPF Urine Microscopic WBC (0-5) /HPF Ur Epithelial Cells (None Seen) /HPF Urine Bacteria (None Seen) /HPF Urine Culture Reflexed (NO) Salicylates < 1.0 L (2-20) mg/dL Urine Opiates Level (NEGATIVE) Ur Methadone (NEGATIVE) Acetaminophen < 10 L (10-30) ug/ml Urine Barbiturates (NEGATIVE) Ur Phencyclidine (PCP) (NEGATIVE) Urine Amphetamine (NEGATIVE) U Benzodiazepine Level (NEGATIVE) Urine Cocaine (NEGATIVE) Urine Marijuana (THC) (NEGATIVE) Ethyl Alcohol < 10 (0-10) mg/dL Slides for Path Review 08/23/23 08/23/23 08/23/23 Range/Units 14:08 18:00 21:41 WBC (4.0-10.5) x10^3/uL RBC (4.1-5.4) x10^6/uL Hgb (12.0-16.0) g/dL Hct (35-47) % MCV (78-100) fL MCH (26-32) pg MCHC (32-36) g/dL RDW (11.5-14.0) % Plt Count (150-450) x10^3/uL MPV (7.5-11.0) fL Gran % (36.0-66.0) % Immature Gran % (Auto) (0.00-0.4) % Nucleat RBC Rel Count (0.00-0.1) % Eos # (Auto) (0-0.5) x10^3/uL Immature Gran # (Auto) (0.00-0.03) x10^3u/L Absolute Lymphs (auto) (1.0-4.6) x10^3/uL Absolute Monos (auto) (0.0-1.3) x10^3/uL Absolute Nucleated RBC (0.00-0.01) x10^3u/L Lymphocytes % (24.0-44.0) % Monocytes % (0.0-12.0) % Eosinophils % (0.00-5.0) % Basophils % (0.0-0.4) % Absolute Granulocytes (1.4-6.9) x10^3/uL Basophils # (0-0.4) x10^3/uL Sodium (135-145) mmol/L Potassium (3.5-5.1) mmol/L Chloride (98-107) mmol/L Carbon Dioxide (22-30) mmol/L Anion Gap (5-15) MEQ/L BUN (7-17) mg/dL Creatinine (0.52-1.04) mg/dL Estimated GFR ML/MIN Glucose (74-106) mg/dL POC Glucometer 90 (74 to 106) mg/dL Lactic Acid (0.4-2.0) Calcium (8.4-10.2) mg/dL Magnesium (1.6-2.3) mg/dL Total Bilirubin (0.2-1.3) mg/dL AST (14-36) U/L ALT (0-35) U/L Alkaline Phosphatase (38-126) U/L Ammonia < 9 L (9-30) umol/L Troponin I < 0.012 (0.000-0.033) ng/mL Serum Total Protein (6.3-8.2) g/dL Albumin (3.5-5.0) g/dL Lipase (23-300) U/L Urine Color (Yellow) Urine Appearance (Clear) Urine pH (4.6-8.0) Ur Specific [place] (1.005-1.030) Urine Protein (Negative) Urine Glucose (UA) (Negative) mg/dL Urine Ketones (Negative) Urine Blood (Negative) Urine Nitrite (Negative) Urine Bilirubin (Negative) Urine Urobilinogen (0.2) mg/dL Ur Leukocyte Esterase (Negative) U Hyaline Cast (Auto) (0-2) /LPF Urine Microscopic RBC (0-5) /HPF Urine Microscopic WBC (0-5) /HPF Ur Epithelial Cells (None Seen) /HPF Urine Bacteria (None Seen) /HPF Urine Culture Reflexed (NO) Salicylates (2-20) mg/dL Urine Opiates Level (NEGATIVE) Ur Methadone (NEGATIVE) Acetaminophen (10-30) ug/ml Urine Barbiturates (NEGATIVE) Ur Phencyclidine (PCP) (NEGATIVE) Urine Amphetamine (NEGATIVE) U Benzodiazepine Level (NEGATIVE) Urine Cocaine (NEGATIVE) Urine Marijuana (THC) (NEGATIVE) Ethyl Alcohol (0-10) mg/dL Slides for Path Review 08/23/23 08/23/23 08/24/23 Range/Units 23:05 Unknown 07:02 WBC (4.0-10.5) x10^3/uL RBC (4.1-5.4) x10^6/uL Hgb (12.0-16.0) g/dL Hct (35-47) % MCV (78-100) fL MCH (26-32) pg MCHC (32-36) g/dL RDW (11.5-14.0) % Plt Count (150-450) x10^3/uL MPV (7.5-11.0) fL Gran % (36.0-66.0) % Immature Gran % (Auto) (0.00-0.4) % Nucleat RBC Rel Count (0.00-0.1) % Eos # (Auto) (0-0.5) x10^3/uL Immature Gran # (Auto) (0.00-0.03) x10^3u/L Absolute Lymphs (auto) (1.0-4.6) x10^3/uL Absolute Monos (auto) (0.0-1.3) x10^3/uL Absolute Nucleated RBC (0.00-0.01) x10^3u/L Lymphocytes % (24.0-44.0) % Monocytes % (0.0-12.0) % Eosinophils % (0.00-5.0) % Basophils % (0.0-0.4) % Absolute Granulocytes (1.4-6.9) x10^3/uL Basophils # (0-0.4) x10^3/uL Sodium (135-145) mmol/L Potassium (3.5-5.1) mmol/L Chloride (98-107) mmol/L Carbon Dioxide (22-30) mmol/L Anion Gap (5-15) MEQ/L BUN (7-17) mg/dL Creatinine (0.52-1.04) mg/dL Estimated GFR ML/MIN Glucose (74-106) mg/dL POC Glucometer (74 to 106) mg/dL Lactic Acid (0.4-2.0) Calcium (8.4-10.2) mg/dL Magnesium 1.8 1.9 (1.6-2.3) mg/dL Total Bilirubin (0.2-1.3) mg/dL AST (14-36) U/L ALT (0-35) U/L Alkaline Phosphatase (38-126) U/L Ammonia (9-30) umol/L Troponin I < 0.012 (0.000-0.033) ng/mL Serum Total Protein (6.3-8.2) g/dL Albumin (3.5-5.0) g/dL Lipase (23-300) U/L Urine Color (Yellow) Urine Appearance (Clear) Urine pH (4.6-8.0) Ur Specific [place] (1.005-1.030) Urine Protein (Negative) Urine Glucose (UA) (Negative) mg/dL Urine Ketones (Negative) Urine Blood (Negative) Urine Nitrite (Negative) Urine Bilirubin (Negative) Urine Urobilinogen (0.2) mg/dL Ur Leukocyte Esterase (Negative) U Hyaline Cast (Auto) (0-2) /LPF Urine Microscopic RBC (0-5) /HPF Urine Microscopic WBC (0-5) /HPF Ur Epithelial Cells (None Seen) /HPF Urine Bacteria (None Seen) /HPF Urine Culture Reflexed (NO) Salicylates (2-20) mg/dL Urine Opiates Level (NEGATIVE) Ur Methadone (NEGATIVE) Acetaminophen (10-30) ug/ml Urine Barbiturates (NEGATIVE) Ur Phencyclidine (PCP) (NEGATIVE) Urine Amphetamine (NEGATIVE) U Benzodiazepine Level (NEGATIVE) Urine Cocaine (NEGATIVE) Urine Marijuana (THC) (NEGATIVE) Ethyl Alcohol (0-10) mg/dL Slides for Path Review 08/24/23 08/24/23 08/24/23 Range/Units 07:02 07:02 07:37 WBC 7.1 (4.0-10.5) x10^3/uL RBC 3.73 L (4.1-5.4) x10^6/uL Hgb 11.6 L (12.0-16.0) g/dL Hct 36.1 (35-47) % MCV 96.8 (78-100) fL MCH 31.1 (26-32) pg MCHC 32.1 (32-36) g/dL RDW 14.8 H (11.5-14.0) % Plt Count 97 L (150-450) x10^3/uL MPV 10.9 (7.5-11.0) fL Gran % (36.0-66.0) % Immature Gran % (Auto) (0.00-0.4) % Nucleat RBC Rel Count (0.00-0.1) % Eos # (Auto) (0-0.5) x10^3/uL Immature Gran # (Auto) (0.00-0.03) x10^3u/L Absolute Lymphs (auto) (1.0-4.6) x10^3/uL Absolute Monos (auto) (0.0-1.3) x10^3/uL Absolute Nucleated RBC (0.00-0.01) x10^3u/L Lymphocytes % (24.0-44.0) % Monocytes % (0.0-12.0) % Eosinophils % (0.00-5.0) % Basophils % (0.0-0.4) % Absolute Granulocytes (1.4-6.9) x10^3/uL Basophils # (0-0.4) x10^3/uL Sodium 134 L (135-145) mmol/L Potassium 3.8 (3.5-5.1) mmol/L Chloride 99 (98-107) mmol/L Carbon Dioxide 29 (22-30) mmol/L Anion Gap 9.2 (5-15) MEQ/L BUN 33 H (7-17) mg/dL Creatinine 1.47 H (0.52-1.04) mg/dL Estimated GFR 43.2 ML/MIN Glucose 108 H (74-106) mg/dL POC Glucometer 100 (74 to 106) mg/dL Lactic Acid (0.4-2.0) Calcium 8.3 L (8.4-10.2) mg/dL Magnesium (1.6-2.3) mg/dL Total Bilirubin 1.20 (0.2-1.3) mg/dL AST 153 H (14-36) U/L ALT 112 H (0-35) U/L Alkaline Phosphatase 103 (38-126) U/L Ammonia (9-30) umol/L Troponin I (0.000-0.033) ng/mL Serum Total Protein 6.9 (6.3-8.2) g/dL Albumin 3.4 L (3.5-5.0) g/dL Lipase (23-300) U/L Urine Color (Yellow) Urine Appearance (Clear) Urine pH (4.6-8.0) Ur Specific [place] (1.005-1.030) Urine Protein (Negative) Urine Glucose (UA) (Negative) mg/dL Urine Ketones (Negative) Urine Blood (Negative) Urine Nitrite (Negative) Urine Bilirubin (Negative) Urine Urobilinogen (0.2) mg/dL Ur Leukocyte Esterase (Negative) U Hyaline Cast (Auto) (0-2) /LPF Urine Microscopic RBC (0-5) /HPF Urine Microscopic WBC (0-5) /HPF Ur Epithelial Cells (None Seen) /HPF Urine Bacteria (None Seen) /HPF Urine Culture Reflexed (NO) Salicylates (2-20) mg/dL Urine Opiates Level (NEGATIVE) Ur Methadone (NEGATIVE) Acetaminophen (10-30) ug/ml Urine Barbiturates (NEGATIVE) Ur Phencyclidine (PCP) (NEGATIVE) Urine Amphetamine (NEGATIVE) U Benzodiazepine Level (NEGATIVE) Urine Cocaine (NEGATIVE) Urine Marijuana (THC) (NEGATIVE) Ethyl Alcohol (0-10) mg/dL Slides for Path Review YES Radiology Exams: Radiology Procedures Category Date Time Status ABDOMEN AND PELVIS W/0 CONTRAS [CT] Stat Exams 08/23/23 09:35 Completed ABDOMINAL-LIMITED [US] Routine Exams 08/24/23 08:00 Ordered CHEST 1 VIEW (PORTABLE) Stat Exams 08/23/23 10:08 Completed HEAD WITHOUT CONTRAST [CT] Stat Exams 08/23/23 09:32 Completed Multi-Disciplinary Progress Notes: Multi-Disciplinary Progress Notes 08/23/23 16:53 Respiratory Note by Antonieta Trejo RT ASSESSMENT COMPLETE AND WILL ORDER ALBUTEROL MDI PATIENT STATES SHE TAKES AT HOME NEEDED, ALTHOUGH THE ALBUTEROL IS NOT ON PATIENT'S HOME MED LIST. Initialized on 08/23/23 16:53 - END OF NOTE Assessment/Plan (1) UTI (lower urinary tract infection) Current Visit: Yes Status: Acute Code(s): N39.0 - URINARY TRACT INFECTION, SITE NOT SPECIFIED (2) PHUONG (acute kidney injury) Current Visit: Yes Status: Acute Code(s): N17.9 - ACUTE KIDNEY FAILURE, UNSPECIFIED (3) Hallucinations Current Visit: Yes Status: Acute Code(s): R44.3 - HALLUCINATIONS, UNSPECIFIED (4) Depression with anxiety Current Visit: Yes Status: Chronic Code(s): F41.8 - OTHER SPECIFIED ANXIETY DISORDERS (5) Bipolar 1 disorder Current Visit: Yes Status: Chronic Code(s): F31.9 - BIPOLAR DISORDER, UNSPECIFIED (6) HTN (hypertension) Current Visit: Yes Status: Acute Code(s): I10 - ESSENTIAL (PRIMARY) HYPERTENSION (7) Hypokalemia Current Visit: Yes Status: Acute Code(s): E87.6 - HYPOKALEMIA (8) Marijuana abuse Current Visit: Yes Status: Chronic Code(s): F12.10 - CANNABIS ABUSE, UNCOMPLICATED (9) Hyponatremia Current Visit: Yes Status: Acute Code(s): E87.1 - HYPO-OSMOLALITY AND HYPONATREMIA (10) Thrombocytopenia Current Visit: Yes Status: Chronic (11) Alcohol withdrawal syndrome Current Visit: Yes Status: Acute Qualifiers: Complication of substance-induced condition: with delirium Qualified Code(s): F10.931 - Alcohol use, unspecified with withdrawal delirium Code(s): F10.939 - ALCOHOL USE, UNSPECIFIED WITH WITHDRAWAL, UNSPECIFIED (12) COPD (chronic obstructive pulmonary disease) Current Visit: Yes Status: Acute (13) Smoker Current Visit: Yes Status: Chronic Code(s): F17.200 - NICOTINE DEPENDENCE, UNSPECIFIED, UNCOMPLICATED (14) Sinus pressure Current Visit: Yes Status: Acute Code(s): J34.89 - OTHER SPECIFIED DISORDERS OF NOSE AND NASAL SINUSES (15) Abdominal pain Current Visit: Yes Status: Acute Code(s): R10.9 - UNSPECIFIED ABDOMINAL PAIN (16) Fatty liver Current Visit: Yes Status: Acute Code(s): K76.0 - FATTY (CHANGE OF) LIVER, NOT ELSEWHERE CLASSIFIED (17) Pancreatic lesion Current Visit: Yes Status: Acute Code(s): K86.9 - DISEASE OF PANCREAS, UNSPECIFIED (18) Obesity (BMI 30-39.9) Current Visit: Yes Status: Chronic Code(s): E66.9 - OBESITY, UNSPECIFIED (19) Chest pain Current Visit: Yes Status: Acute Assessment & Plan: (1) UTI (lower urinary tract infection) Current Visit: Yes Status: Acute Assessment & Plan: - Rocephin started in ER - continue - UC sensitivity pending- Gram negative - IVF Code(s): N39.0 - URINARY TRACT INFECTION, SITE NOT SPECIFIED (2) PHUONG (acute kidney injury) Current Visit: Yes Status: Acute Assessment & Plan: - HX polycystic kidney disease. - IVF - creat 2.08- unknown baseline- no old labs to review - Hold BP meds except beta stephanie - hold Jardiance and statin 08/23 - PHUONG improving creat 1.47 - Cont IVF Code(s): N17.9 - ACUTE KIDNEY FAILURE, UNSPECIFIED (3) Hallucinations Current Visit: Yes Status: Acute Assessment & Plan: - 2:2 ETOH withdrawl and UTI - psych consult 08/23 - Psych consult recommendation is f/u OP with [facility] - Denies hallucinations Code(s): R44.3 - HALLUCINATIONS, UNSPECIFIED (4) Depression with anxiety Current Visit: Yes Status: Chronic Assessment & Plan: - Continue home meds - denies homicidal or suicidal ideation - psych consult- recs reviewed and agree with [facility] Code(s): F41.8 - OTHER SPECIFIED ANXIETY DISORDERS (5) Bipolar 1 disorder Current Visit: Yes Status: Chronic Assessment & Plan: - continue home meds Code(s): F31.9 - BIPOLAR DISORDER, UNSPECIFIED (6) HTN (hypertension) Current Visit: Yes Status: Acute Assessment & Plan: - stable - Continue beta stephanie, hold other meds d/t phuong Code(s): I10 - ESSENTIAL (PRIMARY) HYPERTENSION (7) Hypokalemia Current Visit: Yes Status: Acute Assessment & Plan: - K+ 3.3- replaced IV - recheck in AM 08/23 - resolved Code(s): E87.6 - HYPOKALEMIA (8) Marijuana abuse Current Visit: Yes Status: Chronic Assessment & Plan: - chronic - advised cessation Code(s): F12.10 - CANNABIS ABUSE, UNCOMPLICATED (9) Hyponatremia Current Visit: Yes Status: Acute Assessment & Plan: - Mild Na+ 132 - IVF 08/23 - Na+ 134- improved - Continue IVF Code(s): E87.1 - HYPO-OSMOLALITY AND HYPONATREMIA (10) Thrombocytopenia Current Visit: Yes Status: Chronic Assessment & Plan: - Plt 102 - no old labs to review - Will need OP f/u with hematology at D/C - reports she has seen hematology in the past at [facility] when admitted last and had this dx - Chronic (11) Alcohol withdrawal syndrome Current Visit: Yes Status: Acute Qualifiers: Complication of substance-induced condition: with delirium Qualified Code(s): F10.931 - Alcohol use, unspecified with withdrawal delirium Assessment & Plan: - [facility] protocol - seizure precautions - Tele Code(s): F10.939 - ALCOHOL USE, UNSPECIFIED WITH WITHDRAWAL, UNSPECIFIED (12) COPD (chronic obstructive pulmonary disease) Current Visit: Yes Status: Acute Assessment & Plan: - acute on chronic exacerbation - Cough with frothy white sputum - albuterol, duonebs, advair - On baseline 3lNC 95% - ceftriaxone - CXR: Portable chest now demonstrates borderline cardiomegaly. Lungs inflated and clear. Bony thorax intact. No acute findings. 08/23 - SOB improved (13) Smoker Current Visit: Yes Status: Chronic Assessment & Plan: - advised cessation - nicotine patch Code(s): F17.200 - NICOTINE DEPENDENCE, UNSPECIFIED, UNCOMPLICATED (14) Sinus pressure Current Visit: Yes Status: Acute Assessment & Plan: - Zyrtec at night 08/23 - improved Code(s): J34.89 - OTHER SPECIFIED DISORDERS OF NOSE AND NASAL SINUSES (15) Abdominal pain Current Visit: Yes Status: Acute Assessment & Plan: - With N/V/D - Stool sample - PRN med for N/V - clear liquid diet - CT Abd/pelvis Impression: 1. Again chronic findings including sigmoid diverticulosis, fatty hepatomegaly, chronic pancreatitis microcalcifications, polycystic kidney disease, nonobstructing bilateral renal micro-calculi, arteriosclerotic disease, and chronic bony findings. 2. No new/acute intra-abdominal or pelvic abnormalities on this noncontrast exam. 08/23 - US pending - Hepatitis panel Code(s): R10.9 - UNSPECIFIED ABDOMINAL PAIN (16) Fatty liver Current Visit: Yes Status: Acute Assessment & Plan: - As seen on CT - 2:2 ETOH abuse - AST 141, ALT 127 - Abd distended, and feels tight per pt- Abd US - may need paracentesis 08/23 - - US pending - Hepatitis panel - AST 153, ALT 112 Code(s): K76.0 - FATTY (CHANGE OF) LIVER, NOT ELSEWHERE CLASSIFIED (17) Pancreatic lesion Current Visit: Yes Status: Acute Assessment & Plan: - multiple lesions seen on CT -US for further eval - lipase 210 Code(s): K86.9 - DISEASE OF PANCREAS, UNSPECIFIED (18) Obesity (BMI 30-39.9) Current Visit: Yes Status: Chronic Assessment & Plan: - advised ADA diet and exercise control Code(s): E66.9 - OBESITY, UNSPECIFIED (19) Chest pain Current Visit: Yes Status: Acute Assessment & Plan: - trop x3 negative - tele - EKG- reviwed - 2:2 COPD? VTE: SCD PPI: Pepcid Next of KIN: D/C plan: 1-2 days Code status: Full Code(s): R07.9 - CHEST PAIN, UNSPECIFIED Code(s): R07.9 - CHEST PAIN, UNSPECIFIED
[2023-08-24] MEDS ORDERED: NON-FORMULARY ITEM (Atorvastatin Calcium [Atorvastatin Calcium] 20 MG Tablet) PO SCH (10:00)
[2023-08-24] MEDS ORDERED: NON-FORMULARY ITEM (Finerenone [Kerendia] 20 MG Tablet) PO SCH (10:00)
[2023-08-24] MEDS ORDERED: QUESTRAN Light 4 GM Packet PO SCH (10:00)
[2023-08-24] MEDS: Toprol Xl 50 MG PO SCH (10:16)
--- NOTE | 2023-08-24 10:36 | XRAY ---
Indication: Distended abdomen. Alcoholic fatty liver. Cholecystectomy. Two-dimensional right upper quadrant abdominal sonogram performed. Comparison: None Visualized liver demonstrates diffuse fatty echogenicity without focal solid/cystic mass or ascites. Previous cholecystectomy. Common bile duct measures 6.8 mm. No intrahepatic biliary distention. Visualized pancreas sonographic unremarkable. Right kidney measures 13.9 x 6.3 x 7.6 cm with multiple cysts, largest 5.1 cm. No suspicious solid renal mass or hydronephrosis. Impression: Fatty liver and polycystic right kidney.
[2023-08-24] MEDS: ROCEPHIN 1 GM / 100 ML NaCl 1 GM/100 ML IVPB IV SCH (10:54)
[2023-08-24] MEDS: FOLATE 1 MG PO SCH (10:54)
[2023-08-24] MEDS: VITAMIN B-1 100 MG PO SCH (10:54)
[2023-08-24] MEDS: MAG-OX 400 PO SCH (10:54)
[2023-08-24] MEDS: Cozaar 50 MG PO SCH (10:54)
[2023-08-24] MEDS: ZOCOR 20MG PO SCH (10:54)
[2023-08-24] MEDS: Pepcid 20 MG PO SCH (10:54)
[2023-08-24] MEDS: Acidophilus TABLET PO SCH (10:54)
[2023-08-24] MEDS: Zestril 20 MG PO SCH (10:54)
[2023-08-24] MEDS: JARDIANCE PO SCH (14:15)
[2023-08-24 23:37] VITALS: PULSE 89
[2023-08-25 04:08] VITALS: RESP 18
[2023-08-25 04:14] VITALS: BP 124/76; TEMP 97.2; O2SAT 95
[2023-08-25 05:50] LABS: Hematocrit 39.5 % (35-47); Hemoglobin 12.2 g/dL (12.0-16.0); Mean Cell Volume 100.8 fL (78-100); Mean Corpuscular Hemoglobin 31.1 pg (26-32); Mean Corpuscular Hgb Concent. 30.9 g/dL (32-36); Mean Platelet Volume 10.2 fL (7.5-11.0); Platelet Count 97 x10^3/uL (150-450); Red Blood Count 3.92 x10^6/uL (4.1-5.4); Red Cell Distribution Width 15.1 % (11.5-14.0); White Blood Count 6.7 x10^3/uL (4.0-10.5)
[2023-08-25 06:03] LABS: ALBUMIN 3.6 g/dL (3.5-5.0); ANION GAP 11.4 MEQ/L (5-15); BILIRUBIN,TOTAL 0.8 mg/dL (0.2-1.3); Calcium 8.6 mg/dL (8.4-10.2); Creatinine 1 0.99 mg/dL (0.52-1.04); EST GLOMERULAR FILTRATION RATE 69.5 ML/MIN; Total Protein 7.2 g/dL (6.3-8.2)
--- NOTE | 2023-08-25 13:47 | PCM.DS ---
Discharge Summary Date of Admission: 08/23/23 15:40 Date of Discharge: 08/25/23 Admitting Physician: MIC ORTIZ MD Consults: Consults on Case 08/23/23 15:56 Consult,Calvin [Psychiatric Consult] STAT Primary Care Provider: LAURA GOODMAN Allergies Allergies bismuth subsalicylate [From Pepto-Bismol] Allergy (Mild, Verified 08/23/23 09:12) Swelling sulfamethoxazole [From Bactrim] Allergy (Verified 08/23/23 09:12) Swelling trimethoprim [From Bactrim] Allergy (Verified 08/23/23 09:12) Swelling ANTACIDS Allergy (Uncoded 08/23/23 09:12) Swelling Hospital Summary - Hospital Course Hospital Course: 08/23/23 is a 48 year old female with PMHX of HTN, bronchitis COPD, 2 ppd smoker, type II DM, DJD, fibromyalgia, OA, RA, hepatitis, anxiety, depression, bipolar, and polycystic renal disease. Patient reports that she recently stopped drinking alcohol and that she has been going through withdrawal symptoms x 4 days. Patient reports auditory and visual hallucinations and just feeling off. She typically drinks a fifth of whiskey daily and 2 shooters. Patient reports that she quit drinking 4 days ago and has been experiencing s/s withdrawal including; chills, sweating, nausea, vomiting, diarrhea, headache, hallucinations and sleep disturbance X 4 days now. Patient reports auditory and visual hallucinations which started 08/22/23 and states that she has not slept x 4 days even after taking her prescribed sleep medication. Patient reports pain to her head, neck and back rating it 7/10 at this time. IN ER O2 sat 88% on room air. O2 applied at 3L NC which patient reports she wears continuously at home and sats increased to 93%. Patient reports chest pain on left side of chest that is dull and comes and goes. It radiates to the right side of her chest at times. Trop X1 negative. She c/o increased shortness of breath with white frothy sputum. She is coarse throughout lung sounds. Patient has a history of chronic UTI's and states that her urine odor has been very strong recently. Patient reports that she was scheduled for a heart cath last month but was unable to palmer ve completed due to insurance reasons. Patient is a 1-2 pack a day cigarette smoker and reports that she also smokes marijuana daily. Patient states that she has not taken her daily medications in at least 2 days. Speech is clear and appropriate although responses are delayed. She was started on Rocephin in ER for a UTI and ear infection/ congestion. She reports no ear pain more congestion with muffled sound. 08/24/23 Pt resting in bed. She is rather sleepy today. She is c/o being hungry and would like to eat. She is scheduled for an US today as she has continued abd. distension, and tightness. Discussed depending on the findings of US she may be able to eat afterwards. Discussed hx of hepatitis and she reports no known hx. Her thinks this is assumption made by ER r/t her drinking hx. Hepatitis profile ordered. PHUONG improving with IVF. UC pending, results so far show gram +. Continue antibiotics for UTI, Psych consulted and recommendation was to f/u with [facility] OP. Pt denies homicidal or suicidal ideation. Stool culture negative, probiotics started. She admits to nausea this AM, no vomiting. She denies CP, SOB. 08/25/23 Pt left AMA at 6AM per staff prior to my shift. No other information in chart to review regarding why she left. - Vitals & Intake/Output Vital Signs: Vital Signs Temperature 97.2 F 08/25/23 04:00 Pulse Rate 89 08/25/23 04:00 Respiratory Rate 18 08/25/23 04:00 Blood Pressure 124/76 08/25/23 04:00 O2 Sat by Pulse Oximetry 95 08/25/23 04:00 Intake & Output: Intake & Output 08/23/23 08/24/23 08/25/23 08/26/23 11:59 11:59 11:59 11:59 Intake Total 431 3740 Balance 431 3740 Weight 102.9 kg 100 kg - Lab Result Diagrams: 08/25/23 05:30 08/25/23 05:30 Lab Results-Last 24 Hrs: Lab Results-Last 24 Hours 08/24/23 08/24/23 08/25/23 Range/Units 17:14 21:24 05:30 WBC 6.7 (4.0-10.5) x10^3/uL RBC 3.92 L (4.1-5.4) x10^6/uL Hgb 12.2 (12.0-16.0) g/dL Hct 39.5 (35-47) % MCV 100.8 H (78-100) fL MCH 31.1 (26-32) pg MCHC 30.9 L (32-36) g/dL RDW 15.1 H (11.5-14.0) % Plt Count 97 L (150-450) x10^3/uL MPV 10.2 (7.5-11.0) fL Sodium (135-145) mmol/L Potassium (3.5-5.1) mmol/L Chloride (98-107) mmol/L Carbon Dioxide (22-30) mmol/L Anion Gap (5-15) MEQ/L BUN (7-17) mg/dL Creatinine (0.52-1.04) mg/dL Estimated GFR ML/MIN Glucose (74-106) mg/dL POC Glucometer 106 106 (74 to 106) mg/dL Calcium (8.4-10.2) mg/dL Total Bilirubin (0.2-1.3) mg/dL AST (14-36) U/L ALT (0-35) U/L Alkaline Phosphatase (38-126) U/L Serum Total Protein (6.3-8.2) g/dL Albumin (3.5-5.0) g/dL 08/25/23 Range/Units 05:30 WBC (4.0-10.5) x10^3/uL RBC (4.1-5.4) x10^6/uL Hgb (12.0-16.0) g/dL Hct (35-47) % MCV (78-100) fL MCH (26-32) pg MCHC (32-36) g/dL RDW (11.5-14.0) % Plt Count (150-450) x10^3/uL MPV (7.5-11.0) fL Sodium 138 (135-145) mmol/L Potassium 4.0 (3.5-5.1) mmol/L Chloride 104 (98-107) mmol/L Carbon Dioxide 27 (22-30) mmol/L Anion Gap 11.4 (5-15) MEQ/L BUN 20 H (7-17) mg/dL Creatinine 0.99 (0.52-1.04) mg/dL Estimated GFR 69.5 ML/MIN Glucose 95 (74-106) mg/dL POC Glucometer (74 to 106) mg/dL Calcium 8.6 (8.4-10.2) mg/dL Total Bilirubin 0.80 (0.2-1.3) mg/dL AST 157 H (14-36) U/L ALT 120 H (0-35) U/L Alkaline Phosphatase 105 (38-126) U/L Serum Total Protein 7.2 (6.3-8.2) g/dL Albumin 3.6 (3.5-5.0) g/dL Micro Results-Entire Visit: Microbiology 08/23/23 09:31 Urine Culture - Final Urine, Void Escherichia Coli 08/23/23 Unknown Stool Culture Result 1 - Final Stool Not Reportable Stool Culture Result 2 - Final Not Reportable Stool Culture Result 3 - Final Not Reportable Stool Culture Result 4 - Final Not Reportable Stool Culture Organism Suscept - Final Not Reportable Campylobacter Result 1 - Final Not Reportable Campylobacter Result 2 - Final Not Reportable Campylobactor Result 3 - Final Not Reportable Campylobacter Result 4 - Final Not Reportable Campylobactor Susceptibility - Final Not Reportable C. difficile Toxin B Result 1 - Final Not Reportable C. difficile Toxin B Result 2 - Final Not Reportable C. difficile Toxin B Result 3 - Final Not Reportable C. difficile Toxin B Result 4 - Final Not Reportable Antimicrobic Susceptibility - Final Not Reportable Accuchecks Date 08/24/23 Time 17:31 - Radiology Exams Ordered Rad Exams-Entire Visit: Radiology Procedures Category Date Time Status ABDOMINAL-LIMITED [US] Routine Exams 08/24/23 08:00 Completed - Procedures and Test Procedures and Tests throughout Hospitalization: Therapy Orders & Screens 08/23/23 15:07 Oxygen Nasal Cannula 2 lpm Comment: 08/23/23 16:38 RT Screen per Nursing Assess ONCE Comment: Protocol Order Physician Instructions: Greater than 3 points order RT Admission Screen Reason For Exam: Triggered on Admission Diagnosis: Alcohol withdrawal syndrome Diagnosis: Alcohol withdrawal syndrome Pneumonia: No Home O2: Yes Asthma: Yes CHF: No Home CPAP/BIPAP: No Home Nebs/MDI: Yes Total Points: 14 Smoking Cessation Education ONCE Comment: Diagnosis: Alcohol withdrawal syndrome Smoking Status: Current every day smoker How long have you smoked: years Have you smoked in the past 12 months: Yes Approximately how many cigarettes per day: 20 Do you dip or chew tobacco: No 08/23/23 17:05 Respiratory MDI BID Comment: Diagnosis: Alcohol withdrawal syndrome 08/24/23 07:00 Respiratory Therapy Assessment DAILY Comment: Diagnosis: Alcohol withdrawal syndrome 08/24/23 19:19 Respiratory MDI BID Comment: Diagnosis: Alcohol withdrawal syndrome Discharge Exam General Appearance: no apparent distress, alert Neurologic Exam: alert, oriented x 3, cooperative, normal mood/affect, nml cerebellar function, sensation nml, No motor deficits Eye Exam: PERRL, EOMI, eyes nml inspection Ears, Nose, Throat Exam: normal ENT inspection, pharynx normal, moist mucous membranes Neck Exam: normal inspection, non-tender, supple, full range of motion Respiratory Exam: normal breath sounds, lungs clear, No respiratory distress Cardiovascular Exam: regular rate/rhythm, normal heart sounds Gastrointestinal/Abdomen Exam: soft, No tenderness, No mass Pelvic Exam: deferred Rectal Exam: deferred Back Exam: normal inspection, normal range of motion, No CVA tenderness, No vertebral tenderness Extremity Exam: normal inspection, normal range of motion Skin Exam: normal color, warm, dry Comments: 08/25/23 13:43 NO assessment as pt left AMA Final Diagnosis/Problem List - Final Discharge Diagnosis/Problem (1) UTI (lower urinary tract infection) Status: Acute Code(s): N39.0 - URINARY TRACT INFECTION, SITE NOT SPECIFIED (2) PHUONG (acute kidney injury) Status: Acute Code(s): N17.9 - ACUTE KIDNEY FAILURE, UNSPECIFIED (3) Hallucinations Status: Acute Code(s): R44.3 - HALLUCINATIONS, UNSPECIFIED (4) Depression with anxiety Status: Chronic Code(s): F41.8 - OTHER SPECIFIED ANXIETY DISORDERS (5) Bipolar 1 disorder Status: Chronic Code(s): F31.9 - BIPOLAR DISORDER, UNSPECIFIED (6) HTN (hypertension) Status: Acute Code(s): I10 - ESSENTIAL (PRIMARY) HYPERTENSION (7) Hypokalemia Status: Acute Code(s): E87.6 - HYPOKALEMIA (8) Marijuana abuse Status: Chronic Code(s): F12.10 - CANNABIS ABUSE, UNCOMPLICATED (9) Hyponatremia Status: Acute Code(s): E87.1 - HYPO-OSMOLALITY AND HYPONATREMIA (10) Thrombocytopenia Status: Chronic (11) Alcohol withdrawal syndrome Status: Acute Code(s): F10.939 - ALCOHOL USE, UNSPECIFIED WITH WITHDRAWAL, UNSPECIFIED (12) COPD (chronic obstructive pulmonary disease) Status: Acute (13) Smoker Status: Chronic Code(s): F17.200 - NICOTINE DEPENDENCE, UNSPECIFIED, UNCOMPLICATED (14) Sinus pressure Status: Acute Code(s): J34.89 - OTHER SPECIFIED DISORDERS OF NOSE AND NASAL SINUSES (15) Abdominal pain Status: Acute Code(s): R10.9 - UNSPECIFIED ABDOMINAL PAIN (16) Fatty liver Status: Acute Code(s): K76.0 - FATTY (CHANGE OF) LIVER, NOT ELSEWHERE CLASSIFIED (17) Pancreatic lesion Status: Acute Code(s): K86.9 - DISEASE OF PANCREAS, UNSPECIFIED (18) Obesity (BMI 30-39.9) Status: Chronic Code(s): E66.9 - OBESITY, UNSPECIFIED (19) Chest pain Status: Acute Assessment & Plan: 08/25/23 - PT left AMA at 6am prior to this providers shift. (1) UTI (lower urinary tract infection) Current Visit: Yes Status: Acute Assessment & Plan: - Rocephin started in ER - continue - UC sensitivity pending- Gram negative - IVF - UC + for e-coli- Levaquin sent in for OP use Code(s): N39.0 - URINARY TRACT INFECTION, SITE NOT SPECIFIED (2) PHUONG (acute kidney injury) Current Visit: Yes Status: Acute Assessment & Plan: - HX polycystic kidney disease. - IVF - creat 2.08- unknown baseline- no old labs to review - Hold BP meds except beta stephanie - hold Jardiance and statin 08/23 - PHUONG improving creat 1.47 - Cont IVF Code(s): N17.9 - ACUTE KIDNEY FAILURE, UNSPECIFIED (3) Hallucinations Current Visit: Yes Status: Acute Assessment & Plan: - 2:2 ETOH withdrawl and UTI - psych consult 08/23 - Psych consult recommendation is f/u OP with [facility] - Denies hallucinations Code(s): R44.3 - HALLUCINATIONS, UNSPECIFIED (4) Depression with anxiety Current Visit: Yes Status: Chronic Assessment & Plan: - Continue home meds - denies homicidal or suicidal ideation - psych consult- recs reviewed and agree with carias of care Code(s): F41.8 - OTHER SPECIFIED ANXIETY DISORDERS (5) Bipolar 1 disorder Current Visit: Yes Status: Chronic Assessment & Plan: - continue home meds Code(s): F31.9 - BIPOLAR DISORDER, UNSPECIFIED (6) HTN (hypertension) Current Visit: Yes Status: Acute Assessment & Plan: - stable - Continue beta stephanie, hold other meds d/t phuong Code(s): I10 - ESSENTIAL (PRIMARY) HYPERTENSION (7) Hypokalemia Current Visit: Yes Status: Acute Assessment & Plan: - K+ 3.3- replaced IV - recheck in AM 08/23 - resolved Code(s): E87.6 - HYPOKALEMIA (8) Marijuana abuse Current Visit: Yes Status: Chronic Assessment & Plan: - chronic - advised cessation Code(s): F12.10 - CANNABIS ABUSE, UNCOMPLICATED (9) Hyponatremia Current Visit: Yes Status: Acute Assessment & Plan: - Mild Na+ 132 - IVF 08/23 - Na+ 134- improved - Continue IVF Code(s): E87.1 - HYPO-OSMOLALITY AND HYPONATREMIA (10) Thrombocytopenia Current Visit: Yes Status: Chronic Assessment & Plan: - Plt 102 - no old labs to review - Will need OP f/u with hematology at D/C - reports she has seen hematology in the past at [facility] when admitted last and had this dx - Chronic (11) Alcohol withdrawal syndrome Current Visit: Yes Status: Acute Qualifiers: Complication of substance-induced condition: with delirium Qualified Co de(s): F10.931 - Alcohol use, unspecified with withdrawal delirium Assessment & Plan: - [facility] protocol - seizure precautions - Tele Code(s): F10.939 - ALCOHOL USE, UNSPECIFIED WITH WITHDRAWAL, UNSPECIFIED (12) COPD (chronic obstructive pulmonary disease) Current Visit: Yes Status: Acute Assessment & Plan: - acute on chronic exacerbation - Cough with frothy white sputum - albuterol, duonebs, advair - On baseline 3lNC 95% - ceftriaxone - CXR: Portable chest now demonstrates borderline cardiomegaly. Lungs inflated and clear. Bony thorax intact. No acute findings. 08/23 - SOB improved (13) Smoker Current Visit: Yes Status: Chronic Assessment & Plan: - advised cessation - nicotine patch Code(s): F17.200 - NICOTINE DEPENDENCE, UNSPECIFIED, UNCOMPLICATED (14) Sinus pressure Current Visit: Yes Status: Acute Assessment & Plan: - Zyrtec at night 08/23 - improved Code(s): J34.89 - OTHER SPECIFIED DISORDERS OF NOSE AND NASAL SINUSES (15) Abdominal pain Current Visit: Yes Status: Acute Assessment & Plan: - With N/V/D - Stool sample - PRN med for N/V - clear liquid diet - CT Abd/pelvis Impression: 1. Again chronic findings including sigmoid diverticulosis, fatty hepatomegaly, chronic pancreatitis microcalcifications, polycystic kidney disease, nonobstructing bilateral renal micro-calculi, arteriosclerotic disease, and chronic bony findings. 2. No new/acute intra-abdominal or pelvic abnormalities on this noncontrast exam. 08/23 - US pending - Hepatitis panel Code(s): R10.9 - UNSPECIFIED ABDOMINAL PAIN (16) Fatty liver Current Visit: Yes Status: Acute Assessment & Plan: - As seen on CT - 2:2 ETOH abuse - AST 141, ALT 127 - Abd distended, and feels tight per pt- Abd US - may need paracentesis 08/23 - US Abd: Impression: Fatty liver and polycystic right kidney. - Hepatitis panel - AST 153, ALT 112 Code(s): K76.0 - FATTY (CHANGE OF) LIVER, NOT ELSEWHERE CLASSIFIED (17) Pancreatic lesion Current Visit: Yes Status: Acute Assessment & Plan: - multiple lesions seen on CT -US for further eval - lipase 210 Code(s): K86.9 - DISEASE OF PANCREAS, UNSPECIFIED (18) Obesity (BMI 30-39.9) Current Visit: Yes Status: Chronic Assessment & Plan: - advised ADA diet and exercise control Code(s): E66.9 - OBESITY, UNSPECIFIED (19) Chest pain Current Visit: Yes Status: Acute Assessment & Plan: - trop x3 negative - tele - EKG- reviwed - 2:2 COPD? Code(s): R07.9 - CHEST PAIN, UNSPECIFIED - Discharge Discharge Date: 08/25/23 Disposition: Against Medical Advice Condition: Fair Prescriptions: Continue Lisinopril 20 mg [Zestril 20 MG] 1 tab PO DAILY Metoprolol Succinate 50 mg [Toprol Xl 50 MG] 1 tab PO DAILY Losartan Potassium 50 mg [Cozaar 50 MG] 50 mg PO DAILY Trazodone HCl 50 mg [Desyrel 50 mg] 200 mg PO HS Famotidine 20 mg [Pepcid 20 MG] 40 mg PO DAILY Empagliflozin [Jardiance] 10 mg PO DAILY Asenapine Maleate 10 mg SL HS Thiamine HCl 100 mg [Vitamin B-1 100 mg] 100 mg PO DAILY Ropinirole 2Mg [Requip 2Mg Tab] 3 mg PO HS Finerenone [Kerendia] 20 mg PO DAILY Icosapent Ethyl [Vascepa] 2 cap PO BID Cholecalciferol (Vitamin D3) [Vitamin D] 2,000 unit PO WEEKLY Folic Acid 1 mg [Folate 1 mg] 1 mg PO DAILY Atorvastatin Calcium 20 mg PO DAILY Magnesium Oxide 400 mg [Mag-Ox 400] 400 mg PO DAILY Follow up with: LAURA GOODMAN [Primary Care Provider] -
== END 2023-08-25 05:59 | disposition left against medical advice (07) ==
LOC: ED 08:55 → MED SURG 15:40
PROVIDERS: ADMIT Internal Medicine; ATTEND Internal Medicine
DX: N39.0 Urinary tract infection, site not specified (principal); N17.9 Acute kidney failure, unspecified; R44.3 Hallucinations, unspecified; F41.8 Other specified anxiety disorders; F31.9 Bipolar disorder, unspecified; I10 Essential (primary) hypertension; E87.6 Hypokalemia; F12.10 Cannabis abuse, uncomplicated; E87.1 Hypo-osmolality and hyponatremia; D69.6 Thrombocytopenia, unspecified; F10.939 Alcohol use, unspecified with withdrawal, unspecified; J44.9 Chronic obstructive pulmonary disease, unspecified; F17.200 Nicotine dependence, unspecified, uncomplicated; J34.89 Other specified disorders of nose and nasal sinuses; R10.9 Unspecified abdominal pain; K76.0 Fatty (change of) liver, not elsewhere classified; K86.9 Disease of pancreas, unspecified; E66.9 Obesity, unspecified; R07.9 Chest pain, unspecified; Z79.899 Other long term (current) drug therapy
CPT/HCPCS: 36415; 70450; 71045; 74176; 76705; 80053; 80074; 80143; 80179; 80307; 81001; 82077; 82140; 82947; 83036; 83605; 83690; 83735; 84484; 85025; 85027; 87077; 87086; 87186; 93005; 94640; 94762; 96365; 99284; Q3014; 90791; 93268; J0696; J2405; J3360; J3475; J3480; Q0162; A9270-GY; G0378

== ENCOUNTER 2023-12-06 06:31 | Emergency (ER) | payer OTHER ==
[2023-12-06 06:40] VITALS: TEMP 97.4
--- NOTE | 2023-12-06 07:08 | ERPHSYRPT ---
- History of Present Illness Time Seen by Provider: 12/06/23 07:05 Source: patient Exam Limitations: no limitations Patient Subjective Stated Complaint: kidney infection that I can't get rid of, flank and abd pain Triage Nursing Assessment: Pt brought back to ER room 6 by spouse. Pt is alert and oriented x4, spouse at bedside. Pt states, "I have a kidney infection that I can't get rid of". Pt c/o bilat flank pain, abd pain and some incontinence. Pt had kidney stone removal at [facility] on 10/04/23 and has had a kidney infection ever since. Abd lg, obese with active bs x4 quad, tender on palpation. Pt is tearful, rocking back and forth sitting on side of bed and also yelling because of the b/p cuff being too tight saying "I'm in enough pain without this thing cutting off my circulation". Physician History: This is a 48-year-old obese white female patient who presents with approximately 2-day history of worsening urinary tract symptoms including bilateral flank pain, suprapubic discomfort and urinary incontinence. On 10/04/2023, patient underwent ureteral stone removal at [facility] in [facility]. Ever since that procedure, she has had frequent, recurrent urinary tract infections. Patient does not recall all the antibiotics she has been on in the last 2 months but most recently she stopped nitrofurantoin because it was not working. She was started on Keflex but did not take any today. Patient has an appointment to see her primary care provider today but could not wait because of the pain symptoms. Patient is a daily smoker of cigarettes and occasionally uses marijuana. She admits to drinking a pint of whiskey daily but stopped completely on 10/04/2023. The patient and her significant other are concerned about her recurrent ureteral stone. Patient has a history of hypertension, h yperlipidemia, diabetes, COPD, bronchitis, degenerative disc disease, fibromyalgia, rheumatoid arthritis, anxiety and polycystic renal disease. Patient denies chest pain and she denies shortness of breath. Patient is allergic to sulfamethoxazole and trimethoprim. Timing/Duration: day(s) (2), worse Activites at Onset: none Quality: aching Onset Location: suprapubic, generalized flank, abdominal pain (Suprapubic) Pain Radiation: none Severity of Pain-Max: moderate Severity of Pain-Current: moderate Prior abdominal problems: none Sexual intercourse history: non-contributory Modifying Factors: Improves With: nothing Associated Symptoms: abdominal pain (Prepubic) Allergies/Adverse Reactions: bismuth subsalicylate [From Pepto-Bismol] Allergy (Mild, Verified 12/06/23 06:40) Swelling sulfamethoxazole [From Bactrim] Allergy (Verified 12/06/23 06:40) Swelling trimethoprim [From Bactrim] Allergy (Verified 12/06/23 06:40) Swelling ANTACIDS Allergy (Uncoded 09/27/23 10:06) Swelling Home Medications: Lisinopril 20 mg [Zestril 20 MG] 1 tab PO DAILY 03/21/23 [History] Metoprolol Succinate 50 mg [Toprol Xl 50 MG] 1 tab PO DAILY 03/21/23 [History] Asenapine Maleate 10 mg SL HS 08/23/23 [History] Atorvastatin Calcium 20 mg PO DAILY 08/23/23 [History] Cholecalciferol (Vitamin D3) [Vitamin D] 2,000 unit PO WEEKLY 08/23/23 [History] Famotidine 20 mg [Pepcid 20 MG] 40 mg PO DAILY 08/23/23 [History] Finerenone [Kerendia] 20 mg PO DAILY 08/23/23 [History] Folic Acid 1 mg [Folate 1 mg] 1 mg PO DAILY 08/23/23 [History] Losartan Potassium 50 mg [Cozaar 50 MG] 50 mg PO DAILY 08/23/23 [History] Magnesium Oxide 400 mg [Mag-Ox 400] 400 mg PO DAILY 08/23/23 [History] Ropinirole 2Mg [Requip 2Mg Tab] 3 mg PO HS 08/23/23 [History] Thiamine HCl 100 mg [Vitamin B-1 100 mg] 100 mg PO DAILY 08/23/23 [History] Trazodone HCl 50 mg [Desyrel 50 mg] 200 mg PO HS 08/23/23 [History] icosapent ethyL [Vascepa] 2 cap PO BID 08/23/23 [History] Cephalexin Mh 500 mg [Keflex 500 mg] 500 mg PO BID 12/06/23 [History] Hx Tetanus, Diphtheria Vaccination/Date Given: Yes Hx Influenza Vaccination/Date Given: No Hx Pneumococcal Vaccination/Date Given: Yes Travel Risk - International Travel Have you traveled outside of the country in past 3 weeks: No - Emerging Infectious Disease Are you exhibiting symptoms associated with any current EIDs: Yes Symptoms: Abdominal Pain - Review of Systems Constitutional: No Symptoms Eyes: No Symptoms Ears, Nose, & Throat: No Symptoms Respiratory: No Symptoms Cardiac: No Symptoms Abdominal/Gastrointestinal: Abdominal Pain (Prepubic) Genitourinary Symptoms: Incontinence (Urinary), Flank Pain (Bilateral) Musculoskeletal: No Symptoms Skin: No Symptoms Neurological: No Symptoms Psychological: No Symptoms Endocrine: No Symptoms Hematologic/Lymphatic: No Symptoms Immunological/Allergic: No Symptoms All Other Systems: Reviewed and Negative - Past Medical History Pertinent Past Medical History: Yes Neurological History: No Pertinent History ENT History: No Pertinent History Cardiac History: Hypertension Respiratory History: Bronchitis, COPD Endocrine Medical History: Diabetes Type II, Other Musculoskeletal History: Degenerative Disk Disease, Fibromyalgia, Osteoarthritis, Rheumatoid Arthritis GI Medical History: Gallbladder Disease, Hepatitis History: Other Psycho-Social History: Anxiety, Depression Female Reproductive Disorders: Abnormal Uterine Bleeding, Menstrual Problems Other Medical History: POLYCYSTIC RENAL DISEASE. Recent DM II vs insulin resistance. HX OF DRUG ABUSE - no current treatment - Past Surgical History Past Surgical History: Yes Neuro Surgical History: No Pertinent History Cardiac: Cardiac Catheterization Respiratory: No Pertinent History Gastrointestinal: Cholecystectomy Genitourinary: Other Musculoskeletal: Orthopedic Surgery Female Surgical History: Tubal Ligation, Other Other Surgical History: ankle, knee, uterine ablasion,knee surg, back,kidney stone removal. kidney stent 202109/02/21 and 10/2023 Significant Family History: no pertinent family hx - Female History Hx Last Menstrual Period: ablasion Hx Now: No - Social History Smoking Status: Current every day smoker How long have you smoked: 40 yrs Exposure to second hand smoke: Yes Drug Use: marijuana Patient Lives Alone: No - Social Determinants of Health Will the patient participate in the screening: Yes Do you worry about a steady place to live?: No Do you have any problems with any of the following?: No known problems In the past 12 months,have you had to go without utilities?: No Transportation Issues: No Has anyone in your support network made you feel unsafe?: No Have you or anyone in your house had to go without enough: No - Nursing Vital Signs Nursing Vital Signs: Initial Vital Signs Temperature 97.4 F 12/06/23 06:33 Pulse Rate 118 H 12/06/23 06:33 Respiratory Rate 24 12/06/23 06:33 Blood Pressure 123/64 12/06/23 06:33 O2 Sat by Pulse Oximetry 96 12/06/23 06:33 Pain Scale Pain Intensity 6 - Physical Exam General Appearance: mild distress, alert, anxiety, obese Eye Exam: PERRL/EOMI, eyes nml inspection Ears, Nose, Throat Exam: normal ENT inspection, moist mucous membranes Neck Exam: normal inspection, non-tender, supple, full range of motion Respiratory Exam: airway intact, No chest tenderness, No respiratory distress Cardiovascular Exam: tachycardia Gastrointestinal/Abdomen Exam: soft, normal bowel sounds, tenderness (Prepubic to palpation), guarding (Prepubic to palpation), No rebound Pelvic Exam: not done Rectal Exam: not done Back Exam: normal inspection, normal range of motion, CVA tenderness (Bilateral), No vertebral tenderness Extremity Exam: normal inspection, normal range of motion, pelvis stable Neurologic Exam: alert, oriented x 3, cooperative, 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 nml as tested, nml cerebellar function, nml station & gait, sensation nml Skin Exam: normal color, warm, dry Lymphatic Exam: No adenopathy SpO2 Interpretation: normal SpO2: 96 O2 Delivery: Room Air - Course Nursing assessment & vital signs reviewed: Yes Ordered Tests: Active Orders 24 hr Category Date Time Status IV Insertion STAT Care 12/06/23 08:41 Active ABDOMEN AND PELVIS W/0 CONTRAS [CT] Stat Exams 12/06/23 07:24 Completed AMYLASE Stat Lab 12/06/23 09:43 Completed CBC W DIFF Stat Lab 12/06/23 09:43 Completed CMP Stat Lab 12/06/23 09:43 Completed CULTURE,URINE Stat Lab 12/06/23 07:00 Received LIPASE Stat Lab 12/06/23 09:43 Completed Lactic Acid Stat Lab 12/06/23 09:52 Completed UA W/RFX UR CULTURE Stat Lab 12/06/23 07:00 Completed Medication Summary Discontinued Medications Generic Name Dose Route Start Last Admin Trade Name Freq PRN Reason Stop Dose Admin Hydromorphone HCl 1 mg 12/06/23 07:22 12/06/23 07:34 Hydromorphone 1 Mg/1ml Inj IM 12/06/23 07:23 1 mg STAT ONE Administration Hydromorphone HCl Confirm 12/06/23 07:30 Hydromorphone 1 Mg/1ml Inj Administered 12/06/23 07:31 Dose 1 mg .ROUTE .STK-MED ONE Hydromorphone HCl 0.5 mg 12/06/23 08:41 12/06/23 08:46 Hydromorphone 1 Mg/1ml Inj IV 12/06/23 08:42 0.5 mg STAT ONE Administration Hydromorphone HCl Confirm 12/06/23 08:44 Hydromorphone 1 Mg/1ml Inj Administered 12/06/23 08:45 Dose 1 mg .ROUTE .STK-MED ONE Ceftriaxone Sodium 1 gm in 100 mls @ 200 mls/hr 12/06/23 08:42 12/06/23 09:59 Rocephin 1 Gm / 100 Ml Nacl IV 12/06/23 09:11 Infused STAT ONE Infusion Ceftriaxone Sodium Confirm 12/06/23 08:44 Rocephin 1 Gm / 100 Ml Nacl Administered 12/06/23 08:45 Dose 1 gm in 100 mls @ ud IV .STK-MED ONE Ketorolac Tromethamine 30 mg 12/06/23 08:41 12/06/23 08:47 Ketorolac Tromethamine 30 Mg/Ml Inj IV 12/06/23 08:42 30 mg STAT ONE Administration Ketorolac Tromethamine Confirm 12/06/23 08:46 Ketorolac Tromethamine 30 Mg/Ml Inj Administered 12/06/23 08:47 Dose 30 mg .ROUTE .STK-MED ONE Ondansetron HCl Confirm 12/06/23 08:43 Ondansetron Hcl 4 Mg/2 Ml Vial Administered 12/06/23 08:44 Dose 4 mg .ROUTE .STK-MED ONE Prochlorperazine Edisylate 5 mg 12/06/23 07:23 12/06/23 07:33 Prochlorperazine Edisylate 10 Mg/2 Ml Vial IM 12/06/23 07:24 5 mg STAT ONE Administration Prochlorperazine Edisylate Confirm 12/06/23 07:30 Prochlorperazine Edisylate 10 Mg/2 Ml Vial Administered 12/06/23 07:31 Dose 10 mg .ROUTE .ST-MED ONE Lab/Rad Data: Laboratory Result Diagrams 12/06/23 09:43 12/06/23 09:43 Laboratory Results 12/06/23 12/06/23 12/06/23 Range/Units 09:52 09:43 09:43 WBC 13.5 H (3.98-10.04) x10^3/uL RBC 3.56 L (3.93-5.22) x10^6/uL Hgb 10.8 L (11.2-15.7) g/dL Hct 34.2 (34.1-44.9) % MCV 96.1 H (79.4-94.8) fL MCH 30.3 (25.6-32.2) pg MCHC 31.6 L (32.2-35.5) g/dL RDW 13.2 (11.7-14.4) % Plt Count 227 (182-369) x10^3/uL MPV 8.7 L (9.4-12.3) fL Gran % 84.9 H (34.0-71.1) % Immature Gran % (Auto) 0.7 H (0.001-0.429) % Nucleat RBC Rel Count 0.0 (0.00-0.2) % Eos # (Auto) 0.07 (0.04-0.36) x10^3/uL Immature Gran # (Auto) 0.10 H (0.001-0.031) x10^3u/L Absolute Lymphs (auto) 0.89 L (1.18-3.74) x10^3/uL Absolute Monos (auto) 0.94 H (0.24-0.86) x10^3/uL Absolute Nucleated RBC 0.00 (0.00-0.012) x10^3u/L Lymphocytes % 6.6 L (19.3-51.7) % Monocytes % 7.0 (4.7-12.5) % Eosinophils % 0.5 L (0.7-5.8) % Basophils % 0.3 (0.1-1.2) % Absolute Granulocytes 11.44 H (1.56-6.13) x10^3/uL Basophils # 0.04 (0.01-0.08) x10^3/uL Sodium 134 L (135-145) mmol/L Potassium 4.4 (3.5-5.1) mmol/L Chloride 93 L (98-107) mmol/L Carbon Dioxide 34 H (22-30) mmol/L Anion Gap 10.6 (5-15) MEQ/L BUN 32 H (7-17) mg/dL Creatinine 1.56 H (0.52-1.04) mg/dL Estimated GFR 40.3 ML/MIN Glucose 119 H (74-106) mg/dL Lactic Acid 0.6 (0.4-2.0) Calcium 9.3 (8.4-10.2) mg/dL Total Bilirubin 0.40 (0.2-1.3) mg/dL AST 33 (14-36) U/L ALT 24 (0-35) U/L Alkaline Phosphatase 88 (38-126) U/L Serum Total Protein 8.3 H (6.3-8.2) g/dL Albumin 3.9 (3.5-5.0) g/dL Amylase 94 (30-110) U/L Lipase 144 (23-300) U/L Urine Color (Yellow) Urine Appearance (Clear) Urine pH (4.6-8.0) Ur Specific Mineral (1.005-1.030) Urine Protein (Negative) Urine Glucose (UA) (Negative) mg/dL Urine Ketones (Negative) Urine Blood (Negative) Urine Nitrite (Negative) Urine Bilirubin (Negative) Urine Urobilinogen (0.2) mg/dL Ur Leukocyte Esterase (Negative) U Hyaline Cast (Auto) (0-2) /LPF Urine Microscopic RBC (0-5) /HPF Urine Microscopic WBC (0-5) /HPF Ur Epithelial Cells (None Seen) /HPF Urine Bacteria (None Seen) /HPF Urine Culture Reflexed (NO) 12/06/23 Range/Units 07:00 WBC (3.98-10.04) x10^3/uL RBC (3.93-5.22) x10^6/uL Hgb (11.2-15.7) g/dL Hct (34.1-44.9) % MCV (79.4-94.8) fL MCH (25.6-32.2) pg MCHC (32.2-35.5) g/dL RDW (11.7-14.4) % Plt Count (182-369) x10^3/uL MPV (9.4-12.3) fL Gran % (34.0-71.1) % Immature Gran % (Auto) (0.001-0.429) % Nucleat RBC Rel Count (0.00-0.2) % Eos # (Auto) (0.04-0.36) x10^3/uL Immature Gran # (Auto) (0.001-0.031) x10^3u/L Absolute Lymphs (auto) (1.18-3.74) x10^3/uL Absolute Monos (auto) (0.24-0.86) x10^3/uL Absolute Nucleated RBC (0.00-0.012) x10^3u/L Lymphocytes % (19.3-51.7) % Monocytes % (4.7-12.5) % Eosinophils % (0.7-5.8) % Basophils % (0.1-1.2) % Absolute Granulocytes (1.56-6.13) x10^3/uL Basophils # (0.01-0.08) x10^3/uL Sodium (135-145) mmol/L Potassium (3.5-5.1) mmol/L Chloride (98-107) mmol/L Carbon Dioxide (22-30) mmol/L Anion Gap (5-15) MEQ/L BUN (7-17) mg/dL Creatinine (0.52-1.04) mg/dL Estimated GFR ML/MIN Glucose (74-106) mg/dL Lactic Acid (0.4-2.0) Calcium (8.4-10.2) mg/dL Total Bilirubin (0.2-1.3) mg/dL AST (14-36) U/L ALT (0-35) U/L Alkaline Phosphatase (38-126) U/L Serum Total Protein (6.3-8.2) g/dL Albumin (3.5-5.0) g/dL Amylase (30-110) U/L Lipase (23-300) U/L Urine Color Yellow (Yellow) Urine Appearance Turbid A (Clear) Urine pH 6.5 (4.6-8.0) Ur Specific Mineral 1.010 (1.005-1.030) Urine Protein 30 (Negative) Urine Glucose (UA) Negative (Negative) mg/dL Urine Ketones Trace A (Negative) Urine Blood Moderate A (Negative) Urine Nitrite Negative (Negative) Urine Bilirubin Negative (Negative) Urine Urobilinogen 0.2 (0.2) mg/dL Ur Leukocyte Esterase Large A (Negative) U Hyaline Cast (Auto) 6-10 A (0-2) /LPF Urine Microscopic RBC 11-20 A (0-5) /HPF Urine Microscopic WBC >100 A (0-5) /HPF Ur Epithelial Cells Rare (None Seen) /HPF Urine Bacteria Moderate A (None Seen) /HPF Urine Culture Reflexed YES (NO) - Progress Progress: improved, re-examined Air Movement: good Progress Note: 12/06/23 07:39 My medical decision making and the assignment of moderate complexity to this patient's medical issue today is based on review of the patient's past medical history, review the patient's medication list, review the patient drug allergy list, history present dose and physical findings on examination. The workup in this patient includes placement of a intravenous line, infusion of normal saline solution, CBC, CMP, amylase, lipase, urinalysis, CT scan of the abdomen and pe lvis without contrast. The nurses are unable to place an IV line on her. Therefore, we will provide her with intramuscular Dilaudid and Compazine. Once the patient's pain is under better control we will reattempt IV line placement if the patient allows us to do so. Patient states that the blood pressure cuff gets too tight and too painful for her so she took the cuff off. Differential diagnosis includes but is not limited to ureterolithiasis pyelonephritis, urinary tract infection, other acute intra-abdominal or intrapelvic process. 12/06/23 09:19 The patient now has an intravenous line in place. This patient has a significant urinary tract infection. Will provide the patient with Rocephin intravenously and provide her with additional Dilaudid and intravenous Toradol medication. We are awaiting the lab results. CT scan of the abdomen pelvis without contrast was interpreted by the radiologist and I reviewed the impression. The impression of today's CT was compared to the similar study dated 09/27/2023. There are new bilateral double-J ureteral stent stents in situ. Bilateral catheter patency is in question with bilateral renal edema and bilateral hydronephrosis. Otherwise the remainder of the CAT scan of the abdomen pelvis has chronic findings. 12/06/23 09:[address] Robbie muller and nurse practitioner Kassidy Hernandez for her urologic management. We will contact them to find out the next step in her management following discharge from the emergency room. 12/06/23 10:21 Interpreted the patient's laboratory data results. Patient does have leukocytosis. She does have significant urinary tract infection. We provided her with pain control here in the emergency department and provided her with Rocephin intravenously of antibiotic dosing. I reviewed the patient history, presenting complaint, physical findings and results of the laboratory data and radiographic studies with nurse practitioner Kassidy Hernandez. She is this patient's urologic nurse practitioner out of Dr. Mcguire's office. Kassidy Hernandez stated that they may need to change out her ureteral catheters or possibly just remove them. She stated that we can provide the patient with pain control and change her antibiotics and she will see her tomorrow, 12/07/2023 at 10 AM. 12/06/23 10:23 Blood Culture(s) Obtained: No Antibiotics given: Yes Counseled pt/family regarding: lab results, diagnosis, need for follow-up, rad results Medical Desision Making - Independent Historian Additional History obtained from: Spouse - Diagnostic Testing Diagnostic test were ordered, analyzed, and reviewed by me: Yes Radiological Interpretation: Reviewed by me, Teleradiologist Report - Risk of complications The pt has a mod risk of morbidity or mortality based on: Need for prescription drug management - Departure Departure Disposition: Home Clinical Impression: Urinary tract infection, Obstructive uropathy Condition: Stable Critical Care Time: No Referrals: LAURA GOODMAN [Primary Care Provider] - Follow up/PCP as directed Additional Instructions: Stop your nitrofurantoin and stop your Keflex. Take your new antibiotic cefdinir as prescribed. Keep your appointment with your primary care provider today and follow-up with Kassidy Hernandez nurse practitioner (urology) tomorrow, 12/07/2023 at 10 AM. Prescriptions: Hydrocodone/APAP 5/325 [Zahl 5/325 mg] 1 each PO Q8H PRN PRN #10 tablet MDD 3 PRN Reason: Pain Cefdinir 300 mg PO BID #14 cap
[2023-12-06] MEDS ORDERED: Hydromorphone 1 mg/ml Injection ONE ×2 (07:30→08:44)
[2023-12-06] MEDS ORDERED: Compazine 10 MG/2 ML ONE (07:30)
[2023-12-06] MEDS: Compazine 10 MG/2 ML IM ONE (07:33)
[2023-12-06] MEDS: Hydromorphone 1 mg/ml Injection IM ONE (07:34)
[2023-12-06 08:05] LABS: ADD URINE CULTURE? YES (NO); Appearance Turbid (Clear); Bacteria Moderate /HPF (None Seen); Bilirubin Negative (Negative); Blood Moderate (Negative); Epithelial Cells Rare /HPF (None Seen); Glucose, Urine Negative (Negative); Ketones Trace (Negative); Leukocyte Esterase Large (Negative); Nitrite Negative (Negative); Ph 6.5 (4.6-8.0); Protein,Urine Dip 30 (Negative); Urobilinogen 0.2 mg/dL (0.2); WBC >100 /HPF (0-5)
[2023-12-06] MEDS ORDERED: Zofran 4 MG/2 ML VIAL ONE (08:43)
[2023-12-06] MEDS ORDERED: ROCEPHIN 1 GM / 100 ML NaCl 1 GM/100 ML IVPB IV ONE (08:44)
[2023-12-06] MEDS: Hydromorphone 1 mg/ml Injection IV ONE (08:46)
[2023-12-06] MEDS ORDERED: TORAdol 30 mg Injection ONE (08:46)
[2023-12-06] MEDS: ROCEPHIN 1 GM / 100 ML NaCl 1 GM/100 ML IVPB IV ONE (08:47)
[2023-12-06] MEDS: TORAdol 30 mg Injection IV ONE (08:47)
--- NOTE | 2023-12-06 09:03 | XRAY ---
Indication: Bilateral flank pain. History kidney stones. Multiple contiguous axial images obtained through the abdomen and pelvis without contrast using renal stone protocol. Comparison: September 27, 2023 Lung bases now demonstrates minimal right middle lobe subsegmental atelectasis/scarring. No infiltrate or effusion. Heart not enlarged. Again bilateral polycystic kidney disease with micro-calculi. New bilateral double-J ureteral stent catheters in good position. Both catheter patency is in question as both kidneys now appear edematous with moderate hydronephrosis but no perinephric fluid. Noncontrasted stomach and bowel loops appear nonobstructed with again normal appendix and sigmoid diverticulosis. Again incidental small hepatic cyst, chronic pancreatitis micro-calcifications, small nonspecific periaortic lymph nodes, and cholecystectomy. No free fluid/air. Remaining liver, pancreas, spleen, adrenal glands, bladder, and uterus are unremarkable for noncontrast exam. Again mild scattered aortoiliac calcifications without AAA. Osseous structures intact again with minimal degenerative changes throughout spine and bilateral L4-L5 facet screws. Impression: 1. New bilateral double-J ureteral stent catheters in situ. Both catheter patency is in question as there is bilateral renal edema and bilateral hydronephrosis. 2. Again chronic findings including sigmoid diverticulosis, hepatic cyst, chronic pancreatitis microcalcifications, nonspecific periaortic lymph nodes, arteriosclerotic disease, and chronic bony findings.
[2023-12-06 09:43] LABS: Absolute Neutrophil Ct (ANC) 11.44 x10^3/uL (1.56-6.13); BASOPHIL % 0.3 % (0.1-1.2); Basophil (Absolute #) 0.04 x10^3/uL (0.01-0.08); Eosinophil % 0.5 % (0.7-5.8); Eosinophil (Absolute #) 0.07 x10^3/uL (0.04-0.36); Hematocrit 34.2 % (34.1-44.9); Hemoglobin 10.8 g/dL (11.2-15.7); IMMATURE GRAN % 0.7 % (0.001-0.429); Lymphocyte (Absolute #) 0.89 x10^3/uL (1.18-3.74); Lymphocytes % 6.6 % (19.3-51.7); Mean Cell Volume 96.1 fL (79.4-94.8); Mean Corpuscular Hemoglobin 30.3 pg (25.6-32.2); Mean Corpuscular Hgb Concent. 31.6 g/dL (32.2-35.5); Mean Platelet Volume 8.7 fL (9.4-12.3); Monocyte (Absolute #) 0.94 x10^3/uL (0.24-0.86); Neutrophil % 84.9 % (34.0-71.1); Platelet Count 227 x10^3/uL (182-369); Red Blood Count 3.56 x10^6/uL (3.93-5.22); Red Cell Distribution Width 13.2 % (11.7-14.4); White Blood Count 13.5 x10^3/uL (3.98-10.04)
[2023-12-06 09:58] LABS: ALBUMIN 3.9 g/dL (3.5-5.0); ANION GAP 10.6 MEQ/L (5-15); BILIRUBIN,TOTAL 0.4 mg/dL (0.2-1.3); Calcium 9.3 mg/dL (8.4-10.2); Creatinine 1 1.56 mg/dL (0.52-1.04); EST GLOMERULAR FILTRATION RATE 40.3 ML/MIN; Potassium 4.4 mmol/L (3.5-5.1); Total Protein 8.3 g/dL (6.3-8.2)
[2023-12-06 10:09] VITALS: RESP 18
[2023-12-06 11:00] VITALS: BP 145/80; PULSE 95; O2SAT 95
== END 2023-12-06 11:07 | disposition home or self-care (01) ==
LOC: ED 06:31
DX: N39.0 Urinary tract infection, site not specified (principal); N13.9 Obstructive and reflux uropathy, unspecified; R10.9 Unspecified abdominal pain; R10.2 Pelvic and perineal pain; R32 Unspecified urinary incontinence; I10 Essential (primary) hypertension; E78.5 Hyperlipidemia, unspecified; E11.9 Type 2 diabetes mellitus without complications; Z79.891 Long term (current) use of opiate analgesic; Z79.899 Other long term (current) drug therapy; Z72.0 Tobacco use
CPT/HCPCS: 36415; 74176; 80053; 81001; 82150; 83605; 83690; 85025; 87086; 96365; 96372; 96374; 96375; 96376; 99284; J0696; J1170; J1885; J2405

== ENCOUNTER 2023-12-12 02:12 | Emergency (ER) | payer OTHER ==
[2023-12-12 02:39] VITALS: RESP 26; TEMP 97
[2023-12-12] MEDS ORDERED: TORAdol 30 mg Injection ONE (02:51)
[2023-12-12] MEDS ORDERED: Hydromorphone 1 mg/ml Injection ONE (02:51)
[2023-12-12 02:53] LABS: Appearance Cloudy (Clear); Bacteria None Seen /HPF (None Seen); Bilirubin Negative (Negative); Blood Trace (Negative); Epithelial Cells None Seen /HPF (None Seen); Glucose, Urine Negative (Negative); Hyaline Casts NONE SEEN /LPF (0-2); Ketones Negative (Negative); Leukocyte Esterase Large (Negative); Nitrite Negative (Negative); Protein,Urine Dip 30 (Negative); RBC 0-2 /HPF (0-5); Urobilinogen 0.2 mg/dL (0.2); WBC >100 /HPF (0-5)
[2023-12-12] MEDS ORDERED: Zofran 4 MG/2 ML VIAL ONE (02:53)
[2023-12-12 02:55] LABS: ADD URINE CULTURE? YES (NO)
[2023-12-12] MEDS: Hydromorphone 1 mg/ml Injection IM ONE (02:55)
[2023-12-12] MEDS: ZOFRAN ODT 4 MG PO ONE (02:56)
[2023-12-12] MEDS: TORAdol 30 mg Injection IM ONE (02:56)
[2023-12-12] MEDS: Zofran 4 MG/2 ML VIAL IV ONE (02:56)
--- NOTE | 2023-12-12 02:56 | ERPHSYRPT ---
- History of Present Illness Source: patient Exam Limitations: no limitations Patient Subjective Stated Complaint: pt states rt kidney pain Triage Nursing Assessment: pt came into the er via wheelchair; pt ambulated to cot per self; pt is thrashing around and yelling out; c/o rt flank; pt states 10/10 to rt flank; tenderness to rt flank; active bowel sounds in all quads; skin PDW; SOB; hypertensive; tachycardic Physician History: Patient has left flank pain. Started about 4 hours ago. It is continuous with periods that increase in intensity. Nothing seems make it better or worse. She has a history of kidney stones. She has had multiple episodes. This kind of seems similar. She had stents put in for about 6 months and were recently removed. She does not have any abdominal pain. She has no fever or chills. She still producing urine. Nothing really makes his symptoms better or worse. Timing/Duration: today Activites at Onset: none Quality: aching Allergies/Adverse Reactions: bismuth subsalicylate [From Pepto-Bismol] Allergy (Mild, Verified 12/12/23 02:23) Swelling sulfamethoxazole [From Bactrim] Allergy (Verified 12/12/23 02:23) Swelling trimethoprim [From Bactrim] Allergy (Verified 12/12/23 02:23) Swelling ANTACIDS Allergy (Uncoded 12/12/23 02:23) Swelling Home Medications: Lisinopril 20 mg [Zestril 20 MG] 1 tab PO DAILY 03/21/23 [History] Metoprolol Succinate 50 mg [Toprol Xl 50 MG] 1 tab PO DAILY 03/21/23 [History] Asenapine Maleate 10 mg SL HS 08/23/23 [History] Atorvastatin Calcium 20 mg PO DAILY 08/23/23 [History] Cholecalciferol (Vitamin D3) [Vitamin D] 2,000 unit PO WEEKLY 08/23/23 [History] Famotidine 20 mg [Pepcid 20 MG] 40 mg PO DAILY 08/23/23 [History] Finerenone [Kerendia] 20 mg PO DAILY 08/23/23 [History] Folic Acid 1 mg [Folate 1 mg] 1 mg PO DAILY 08/23/23 [History] Losartan Potassium 50 mg [Cozaar 50 MG] 50 mg PO DAILY 08/23/23 [History] Magnesium Oxide 400 mg [Mag-Ox 400] 400 mg PO DAILY 08/23/23 [History] Ropinirole 2Mg [Requip 2Mg Tab] 3 mg PO HS 08/23/23 [History] Thiamine HCl 100 mg [Vitamin B-1 100 mg] 100 mg PO DAILY 08/23/23 [History] Trazodone HCl 50 mg [Desyrel 50 mg] 200 mg PO HS 08/23/23 [History] icosapent ethyL [Vascepa] 2 cap PO BID 08/23/23 [History] Cephalexin Mh 500 mg [Keflex 500 mg] 500 mg PO BID 12/06/23 [History] Hx Tetanus, Diphtheria Vaccination/Date Given: Yes Hx Influenza Vaccination/Date Given: No Hx Pneumococcal Vaccination/Date Given: Yes Travel Risk - International Travel Have you traveled outside of the country in past 3 weeks: No - Emerging Infectious Disease Are you exhibiting symptoms associated with any current EIDs: No Symptoms: Abdominal Pain - Review of Systems Constitutional: No Symptoms Eyes: No Symptoms Ears, Nose, & Throat: No Symptoms Respiratory: No Symptoms Abdominal/Gastrointestinal: No Symptoms Musculoskeletal: No Symptoms Skin: No Symptoms Neurological: No Symptoms All Other Systems: Reviewed and Negative - Past Medical History Pertinent Past Medical History: Yes Neurological History: No Pertinent History ENT History: No Pertinent History Cardiac History: Hypertension Respiratory History: Bronchitis, COPD Endocrine Medical History: Diabetes Type II, Other Musculoskeletal History: Degenerative Disk Disease, Fibromyalgia, Osteoarthritis, Rheumatoid Arthritis GI Medical History: Gallbladder Disease, Hepatitis History: Other Psycho-Social History: Anxiety, Depression Female Reproductive Disorders: Abnormal Uterine Bleeding, Menstrual Problems Other Medical History: POLYCYSTIC RENAL DISEASE. Recent DM II vs insulin resistance. HX OF DRUG ABUSE - no current treatment - Past Surgical History Past Surgical History: Yes Neuro Surgical History: No Pertinent History Cardiac: Cardiac Catheterization Respiratory: No Pertinent History Gastrointestinal: Cholecystectomy Genitourinary: Other Musculoskeletal: Orthopedic Surgery Female Surgical History: Tubal Ligation, Other Other Surgical History: ankle, knee, uterine ablasion,knee surg, back,kidney stone removal. kidney stent 202109/02/21 and 10/2023 Significant Family History: no pertinent family hx - Female History Hx Last Menstrual Period: ablasion Hx Now: No - Social History Smoking Status: Current every day smoker How long have you smoked: 40 yrs Exposure to second hand smoke: Yes Drug Use: marijuana Patient Lives Alone: No - Social Determinants of Health Will the patient participate in the screening: Yes Do you worry about a steady place to live?: No Do you have any problems with any of the following?: No known problems In the past 12 months,have you had to go without utilities?: No Transportation Issues: No Has anyone in your support network made you feel unsafe?: No Have you or anyone in your house had to go without enough: No - Nursing Vital Signs Nursing Vital Signs: Initial Vital Signs Temperature 97 F 12/12/23 02:24 Pulse Rate 110 H 12/12/23 02:24 Respiratory Rate 26 H 12/12/23 02:24 Blood Pressure 172/138 12/12/23 02:24 O2 Sat by Pulse Oximetry 95 12/12/23 02:24 Pain Scale Pain Intensity 4 - Physical Exam General Appearance: no apparent distress Eye Exam: PERRL/EOMI Respiratory Exam: normal breath sounds, No lungs clear, No respiratory distress Cardiovascular Exam: regular rate/rhythm, normal heart sounds Gastrointestinal/Abdomen Exam: soft, normal bowel sounds Extremity Exam: normal inspection, normal range of motion Neurologic Exam: alert, oriented x 3 Skin Exam: normal color, warm, dry SpO2: 95 - Course Nursing assessment & vital signs reviewed: Yes Ordered Tests: Active Orders 24 hr Category Date Time Status ABDOMEN AND PELVIS W/0 CONTRAS [CT] Stat Exams 12/12/23 03:40 Completed CBC W DIFF Stat Lab 12/12/23 03:16 Completed CMP Stat Lab 12/12/23 03:16 Completed CULTURE,URINE Stat Lab 12/12/23 02:39 Received UA W/RFX UR CULTURE Stat Lab 12/12/23 02:39 Completed Medication Summary Discontinued Medications Generic Name Dose Route Start Last Admin Trade Name Freq PRN Reason Stop Dose Admin Hydromorphone HCl 1 mg 12/12/23 02:47 12/12/23 02:55 Hydromorphone 1 Mg/1ml Inj IM 12/12/23 02:48 Not Given STAT ONE Hydromorphone HCl Confirm 12/12/23 02:51 Hydromorphone 1 Mg/1ml Inj Administered 12/12/23 02:52 Dose 1 mg .ROUTE .STK-MED ONE Hydromorphone HCl 1 mg 12/12/23 02:53 12/12/23 02:57 Hydromorphone 1 Mg/1ml Inj IV 12/12/23 02:54 1 mg STAT ONE Administration Ketorolac Tromethamine 30 mg 12/12/23 02:47 12/12/23 02:56 Ketorolac Tromethamine 30 Mg/Ml Inj IM 12/12/23 02:48 Not Given STAT ONE Ketorolac Tromethamine Confirm 12/12/23 02:51 Ketorolac Tromethamine 30 Mg/Ml Inj Administered 12/12/23 02:52 Dose 30 mg .ROUTE .STK-MED ONE Ketorolac Tromethamine 30 mg 12/12/23 02:53 12/12/23 02:57 Ketorolac Tromethamine 30 Mg/Ml Inj IV 12/12/23 02:54 30 mg STAT ONE Administration Ondansetron HCl 8 mg 12/12/23 02:49 12/12/23 02:56 Zofran 4 Mg/Udtablet Orally Disintegrating PO 12/12/23 02:50 Not Given STAT ONE Ondansetron HCl 4 mg 12/12/23 02:53 12/12/23 02:56 Ondansetron Hcl 4 Mg/2 Ml Vial IV 12/12/23 02:54 4 mg STAT ONE Administration Ondansetron HCl Confirm 12/12/23 02:53 Ondansetron Hcl 4 Mg/2 Ml Vial Administered 12/12/23 02:54 Dose 4 mg .ROUTE .STK-MED ONE Laboratory Results - last 24 hr 12/12/23 12/12/23 12/12/23 02:39 03:16 03:16 WBC 8.6 RBC 3.94 Hgb 11.8 Hct 37.0 MCV 93.9 MCH 29.9 MCHC 31.9 L RDW 13.1 Plt Count 319 MPV 8.5 L Gran % 67.9 Immature Gran % (Auto) 0.6 H Nucleat RBC Rel Count 0.0 Eos # (Auto) 0.10 Immature Gran # (Auto) 0.05 H Absolute Lymphs (auto) 1.96 Absolute Monos (auto) 0.59 Absolute Nucleated RBC 0.00 Lymphocytes % 22.8 Monocytes % 6.9 Eosinophils % 1.2 Basophils % 0.6 Absolute Granulocytes 5.84 Basophils # 0.05 Sodium 138 Potassium 4.1 Chloride 96 L Carbon Dioxide 33 H Anion Gap 12.4 BUN 20 H Creatinine 1.24 H Estimated GFR 53.0 Glucose 107 H Calcium 9.6 Total Bilirubin 0.40 AST 43 H ALT 30 Alkaline Phosphatase 79 Serum Total Protein 8.7 H Albumin 4.2 Urine Color Yellow Urine Appearance Cloudy A Urine pH 7.0 Ur Specific [place] 1.010 Urine Protein 30 Urine Glucose (UA) Negative Urine Ketones Negative Urine Blood Trace Urine Nitrite Negative Urine Bilirubin Negative Urine Urobilinogen 0.2 Ur Leukocyte Esterase Large A U Hyaline Cast (Auto) NONE SEEN Urine Microscopic RBC 0-2 Urine Microscopic WBC >100 A Ur Epithelial Cells None Seen Urine Bacteria None Seen Urine Culture Reflexed YES Lab/Rad Data: Laboratory Result Diagrams 12/12/23 03:16 12/12/23 03:16 Laboratory Results 12/12/23 12/12/23 12/12/23 Range/Units 03:16 03:16 02:39 WBC 8.6 (3.98-10.04) x10^3/uL RBC 3.94 (3.93-5.22) x10^6/uL Hgb 11.8 (11.2-15.7) g/dL Hct 37.0 (34.1-44.9) % MCV 93.9 (79.4-94.8) fL MCH 29.9 (25.6-32.2) pg MCHC 31.9 L (32.2-35.5) g/dL RDW 13.1 (11.7-14.4) % Plt Count 319 (182-369) x10^3/uL MPV 8.5 L (9.4-12.3) fL Gran % 67.9 (34.0-71.1) % Immature Gran % (Auto) 0.6 H (0.001-0.429) % Nucleat RBC Rel Count 0.0 (0.00-0.2) % Eos # (Auto) 0.10 (0.04-0.36) x10^3/uL Immature Gran # (Auto) 0.05 H (0.001-0.031) x10^3u/L Absolute Lymphs (auto) 1.96 (1.18-3.74) x10^3/uL Absolute Monos (auto) 0.59 (0.24-0.86) x10^3/uL Absolute Nucleated RBC 0.00 (0.00-0.012) x10^3u/L Lymphocytes % 22.8 (19.3-51.7) % Monocytes % 6.9 (4.7-12.5) % Eosinophils % 1.2 (0.7-5.8) % Basophils % 0.6 (0.1-1.2) % Absolute Granulocytes 5.84 (1.56-6.13) x10^3/uL Basophils # 0.05 (0.01-0.08) x10^3/uL Sodium 138 (135-145) mmol/L Potassium 4.1 (3.5-5.1) mmol/L Chloride 96 L (98-107) mmol/L Carbon Dioxide 33 H (22-30) mmol/L Anion Gap 12.4 (5-15) MEQ/L BUN 20 H (7-17) mg/dL Creatinine 1.24 H (0.52-1.04) mg/dL Estimated GFR 53.0 ML/MIN Glucose 107 H (74-106) mg/dL Calcium 9.6 (8.4-10.2) mg/dL Total Bilirubin 0.40 (0.2-1.3) mg/dL AST 43 H (14-36) U/L ALT 30 (0-35) U/L Alkaline Phosphatase 79 (38-126) U/L Serum Total Protein 8.7 H (6.3-8.2) g/dL Albumin 4.2 (3.5-5.0) g/dL Urine Color Yellow (Yellow) Urine Appearance Cloudy A (Clear) Urine pH 7.0 (4.6-8.0) Ur Specific [place] 1.010 (1.005-1.030) Urine Protein 30 (Negative) Urine Glucose (UA) Negative (Negative) mg/dL Urine Ketones Negative (Negative) Urine Blood Trace (Negative) Urine Nitrite Negative (Negative) Urine Bilirubin Negative (Negative) Urine Urobilinogen 0.2 (0.2) mg/dL Ur Leukocyte Esterase Large A (Negative) U Hyaline Cast (Auto) NONE SEEN (0-2) /LPF Urine Microscopic RBC 0-2 (0-5) /HPF Urine Microscopic WBC >100 A (0-5) /HPF Ur Epithelial Cells None Seen (None Seen) /HPF Urine Bacteria None Seen (None Seen) /HPF Urine Culture Reflexed YES (NO) A CT was done which showed some stranding around the kidney and some mild hydroureter and hydronephrosis consistent with a passed stone. There is no obstructing stone there is no obstruction. She apparently still has a urinary tract infection. Look back at the cultures and sensitivity and I think that she would do better with Augmentin. And when to send her home with some of that. I do not think that she has an infected stone. Went to have her follow-up with her primary doctor or urologist in the next day or 2. - Progress Progress: improved Medical Desision Making - Independent Historian Additional History obtained from: Spouse - External Record(s) Reviewed Records reviewed as a part of evaluation & management: Inpatient - Diagnostic Testing Diagnostic test were ordered, analyzed, and reviewed by me: Yes Radiological Interpretation: Reviewed by me - Risk of complications Minimal Risk: Minimal risk of morbidity - Departure Departure Disposition: Home Clinical Impression: Flank pain, Urinary tract infectious disease, Chronic UTI Condition: Stable Critical Care Time: No Referrals: LAURA GOODMAN [Primary Care Provider] - Follow up/PCP as directed Prescriptions: Amox Tr/[place]ass Clav. 875 mg [Augmentin 875-125 Tablet] 875 mg PO BID #14 tablet
[2023-12-12] MEDS: TORAdol 30 mg Injection IV ONE (02:57)
[2023-12-12] MEDS: Hydromorphone 1 mg/ml Injection IV ONE (02:57)
[2023-12-12 03:18] LABS: Absolute Neutrophil Ct (ANC) 5.84 x10^3/uL (1.56-6.13); BASOPHIL % 0.6 % (0.1-1.2); Basophil (Absolute #) 0.05 x10^3/uL (0.01-0.08); Eosinophil % 1.2 % (0.7-5.8); Hemoglobin 11.8 g/dL (11.2-15.7); IMMATURE GRAN # 0.05 x10^3u/L (0.001-0.031); IMMATURE GRAN % 0.6 % (0.001-0.429); Lymphocyte (Absolute #) 1.96 x10^3/uL (1.18-3.74); Lymphocytes % 22.8 % (19.3-51.7); Mean Cell Volume 93.9 fL (79.4-94.8); Mean Corpuscular Hemoglobin 29.9 pg (25.6-32.2); Mean Corpuscular Hgb Concent. 31.9 g/dL (32.2-35.5); Mean Platelet Volume 8.5 fL (9.4-12.3); Monocyte (Absolute #) 0.59 x10^3/uL (0.24-0.86); Monocytes % 6.9 % (4.7-12.5); Neutrophil % 67.9 % (34.0-71.1); Platelet Count 319 x10^3/uL (182-369); Red Blood Count 3.94 x10^6/uL (3.93-5.22); Red Cell Distribution Width 13.1 % (11.7-14.4); White Blood Count 8.6 x10^3/uL (3.98-10.04)
[2023-12-12 03:33] LABS: ALBUMIN 4.2 g/dL (3.5-5.0); ANION GAP 12.4 MEQ/L (5-15); BILIRUBIN,TOTAL 0.4 mg/dL (0.2-1.3); Calcium 9.6 mg/dL (8.4-10.2); Creatinine 1 1.24 mg/dL (0.52-1.04); Potassium 4.1 mmol/L (3.5-5.1); Total Protein 8.7 g/dL (6.3-8.2)
[2023-12-12 05:13] VITALS: O2SAT 95
--- NOTE | 2023-12-12 05:17 | XRAY ---
CLINICAL HISTORY: flank pain COMPARISON: To prior dated 09-27-2023 TECHNIQUE: CT images of the abdomen and pelvis were acquired without iv contrast. Coronal and sagittal reconstructions were obtained. One of the following dose reduction techniques was utilized for this exam.Automated exposure control, adjustment of the mA and/or kV according to patient size, and use of iterative reconstruction. FINDINGS: Currently appreciated right zachary-nephric and zachary-ureteric fat standing with mild dilatation of the right ureter down to its lower part yet with no obstructing stones, possibly sequalae of passed one. Redemonstration of: The liver is average in size, displaying normal parenchyma. The portal vein, intrahepatic biliary radicals, and the bile ducts are normal based on non contrast study. Stable small cyst seen at segment V measuring 12 mm. Stable other smaller cysts at segment II, Cipriano and VIII. The spleen, pancreas, and adrenal glands are unremarkable. The kidneys are enlarged with innumerable variable-sized hypodense cysts consistent with polycystic kidney disease. Few of them show internal hyperdensities. Bilateral multiple hyperdense stones are noted, the largest measuring 12 mm and seen on the left kidney. No hydronephrosis. Redemonstration of cholecystectomy surgical clips noted. The CBD is dilated 16 mm with no stones. The ascending colon, the transverse colon, the descending colon, visualized small bowel loops are unremarkable. Multiple mural outpouchings of the descending colon and rectosigmoid are consistent with noncomplicated diverticulosis. Stationary course of the multiple paraaortic and mesenteric nodes with the largest left paraaortic at the level of the left renal hilum measuring 18 x 9.7 mm. Pelvis: The urinary bladder is unremarkable. The appendix is unremarkable. The uterus is unremarkable. No evidence of pelvic lymphadenopathy. Stable L5 internal metallic fixation. The osseous structures in the pelvis, lower rib cage, and lumbar spine show no abnormality. No lytic or sclerotic bone lesions. No changes from the last study. IMPRESSION: 1. Currently appreciated right zachary-nephric and zachary-ureteric fat standing with mild right hydroureter yet with no obstructing stones, possibly sequalae of passed one. Follow-up is advised. 2. Polycystic kidney disease and multiple non-obstrucive bilateral renal stones. 3. Hepatic cysts. 4. Stationary course of rest of the study. Electronically Signed by: Edna Trejo MD. (12/12/2023 05:13:27 EDT)
[2023-12-12 05:55] VITALS: BP 162/100; PULSE 82
== END 2023-12-12 05:54 | disposition home or self-care (01) ==
LOC: ED 02:12
DX: N39.0 Urinary tract infection, site not specified (principal); R10.9 Unspecified abdominal pain; I10 Essential (primary) hypertension; E11.9 Type 2 diabetes mellitus without complications; Z79.899 Other long term (current) drug therapy; Z72.0 Tobacco use
CPT/HCPCS: 36000; 36415; 74176; 80053; 81001; 85025; 87086; 96374; 96375; 99284; J1170; J1885; J2405

== ENCOUNTER 2024-04-05 12:03 | Emergency (ER) | payer OTHER ==
[2024-04-05 12:18] VITALS: RESP 22; TEMP 97.8
--- NOTE | 2024-04-05 12:41 | ERPHSYRPT ---
- History of Present Illness Time Seen by Provider: 04/05/24 12:20 Source: patient, EMS Exam Limitations: no limitations Patient Subjective Stated Complaint: C/O Lower back pain for 4 days. Denies N/V. Triage Nursing Assessment: Patient arrived by ambulance. She is alert and oriented. 02 @ 3L per N/C; normally wears this continously at home. Patient is SOB. Skin is cool to touch. S/S of pain present; patient is very restless, moaning, grimacing. Physician History: 48 years old female with history of hypertension, COPD with chronic respiratory failure on 3 L oxygen, chronic back pain status post fusion per patient, alcohol abuse who was recently admitted at [facility], signed out AMA, on Levaquin presented in the ER with increasing low back pain. Patient reports 10/10 intensity low back pain for the last 4 days nonradiating, all across low back, no numbness tingling or weakness of lower extremities. Does report dysuria and increased frequency. No fever or chills reported. Patient reports she is in so much pain that she is drinking a lot and last drink was 2 hours ago. No fever or chills reported. Allergies/Adverse Reactions: bismuth subsalicylate [From Pepto-Bismol] Allergy (Mild, Verified 04/05/24 12:05) Swelling sulfamethoxazole [From Bactrim] Allergy (Verified 04/05/24 12:05) Swelling trimethoprim [From Bactrim] Allergy (Verified 04/05/24 12:05) Swelling ANTACIDS Allergy (Uncoded 04/05/24 12:05) Swelling Home Medications: Lisinopril 20 mg [Zestril 20 MG] 1 tab PO DAILY 03/21/23 [History] Metoprolol Succinate 50 mg [Toprol Xl 50 MG] 1 tab PO DAILY 03/21/23 [History] Asenapine Maleate 10 mg SL HS 08/23/23 [History] Atorvastatin Calcium 20 mg PO DAILY 08/23/23 [History] Cholecalciferol (Vitamin D3) [Vitamin D] 2,000 unit PO WEEKLY 08/23/23 [History] Famotidine 20 mg [Pepcid 20 MG] 40 mg PO DAILY 08/23/23 [History] Finerenone [Kerendia] 20 mg PO DAILY 08/23/23 [History] Folic Acid 1 mg [Folate 1 mg] 1 mg PO DAILY 08/23/23 [History] Losartan Potassium 50 mg [Cozaar 50 MG] 50 mg PO DAILY 08/23/23 [History] Magnesium Oxide 400 mg [Mag-Ox 400] 400 mg PO DAILY 08/23/23 [History] Ropinirole 2Mg [Requip 2Mg Tab] 3 mg PO HS 08/23/23 [History] Thiamine HCl 100 mg [Vitamin B-1 100 mg] 100 mg PO DAILY 08/23/23 [History] Trazodone HCl 50 mg [Desyrel 50 mg] 200 mg PO HS 08/23/23 [History] icosapent ethyL [Vascepa] 2 cap PO BID 08/23/23 [History] Cephalexin Mh 500 mg [Keflex 500 mg] 500 mg PO BID 12/06/23 [History] Hx Tetanus, Diphtheria Vaccination/Date Given: Yes Hx Influenza Vaccination/Date Given: No Hx Pneumococcal Vaccination/Date Given: Yes Immunizations Up to Date: Yes Travel Risk - International Travel Have you traveled outside of the country in past 3 weeks: No - Emerging Infectious Disease Are you exhibiting symptoms associated with any current EIDs: Yes Symptoms: Headaches/Body Aches/, Shortness of Breath - Review of Systems Constitutional: No Symptoms Ears, Nose, & Throat: No Symptoms Respiratory: No Symptoms Cardiac: No Symptoms Genitourinary Symptoms: Dysuria Musculoskeletal: Back Pain Skin: No Symptoms Neurological: No Symptoms Psychological: Alcohol Abuse, Anxiety, Depression Endocrine: No Symptoms Hematologic/Lymphatic: No Symptoms Immunological/Allergic: No Symptoms - Past Medical History Pertinent Past Medical History: Yes Neurological History: No Pertinent History ENT History: No Pertinent History Cardiac History: Hypertension Respiratory History: Bronchitis, COPD Endocrine Medical History: Diabetes Type II, Other Musculoskeletal History: Degenerative Disk Disease, Fibromyalgia, Osteoarthri tis, Rheumatoid Arthritis GI Medical History: Gallbladder Disease, Hepatitis History: Other Psycho-Social History: Anxiety, Depression Female Reproductive Disorders: Abnormal Uterine Bleeding, Menstrual Problems Other Medical History: POLYCYSTIC RENAL DISEASE , HX OF DRUG ABUSE - Past Surgical History Past Surgical History: Yes Neuro Surgical History: No Pertinent History Cardiac: Cardiac Catheterization Respiratory: No Pertinent History Gastrointestinal: Cholecystectomy Genitourinary: Other Musculoskeletal: Orthopedic Surgery Female Surgical History: Tubal Ligation, Other Other Surgical History: ankle, knee, uterine ablasion,knee surg, back,kidney stone removal. kidney stent 202109/02/21 and 10/2023 Significant Family History: no pertinent family hx - Female History Hx Last Menstrual Period: ablasion Hx Now: No - Social History Smoking Status: Current every day smoker How long have you smoked: 40 yrs Exposure to second hand smoke: Yes Drug Use: marijuana Patient Lives Alone: No - Social Determinants of Health Will the patient participate in the screening: Declined to provide - Nursing Vital Signs Nursing Vital Signs: Initial Vital Signs Temperature 97.8 F 04/05/24 12:05 Pulse Rate 103 H 04/05/24 12:05 Respiratory Rate 22 04/05/24 12:05 Blood Pressure 185/109 04/05/24 12:05 O2 Sat by Pulse Oximetry 95 04/05/24 12:05 Pain Scale Pain Intensity 10 - Physical Exam General Appearance: no apparent distress Eye Exam: PERRL/EOMI Ears, Nose, Throat Exam: normal ENT inspection Neck Exam: normal inspection, supple, full range of motion Respiratory Exam: normal breath sounds, lungs clear Cardiovascular Exam: regular rate/rhythm, normal heart sounds Gastrointestinal Exam: soft, normal bowel sounds, tenderness (Mild bilateral flank tenderness) Back Exam: normal inspection, normal range of motion, decreased range of motion, muscle spasm, other (Bilateral sacroiliac area tenderness. No step-off deformity) Extremity Exam: normal inspection, normal range of motion Neurologic Exam: alert, oriented x 3, cooperative, marketing community liaison II-XII nml as tested, No normal mood/affect, No sensation nml (Decreased sensations of touch left lower extremity below knee from previous surgeries.), No motor deficits Skin Exam: normal color SpO2 Interpretation: O2 applied SpO2: 95 O2 Delivery: Nasal Cannula (3 L) Ordered Tests: Active Orders 24 hr Category Date Time Status Oxygen-ED Only Nasal Cannula 3 lpm Care 04/05/24 13:39 Active ABDOMEN AND PELVIS W/0 CONTRAS [CT] Stat Exams 04/05/24 12:37 Completed RECONSTRUCTION [CT] Stat Exams 04/05/24 12:36 Completed CBC W DIFF Stat Lab 04/05/24 12:30 Completed CMP Stat Lab 04/05/24 12:30 Completed CULTURE,URINE Stat Lab 04/05/24 12:45 Received ETHYL ALCOHOL Stat Lab 04/05/24 12:30 Completed LIPASE Stat Lab 04/05/24 12:30 Completed Lactic Acid Stat Lab 04/05/24 12:35 Completed Lactic Acid Stat Lab 04/05/24 15:04 Completed UA W/RFX UR CULTURE Stat Lab 04/05/24 12:45 Completed Medication Summary Discontinued Medications Generic Name Dose Route Start Last Admin Trade Name Freq PRN Reason Stop Dose Admin Hydromorphone HCl 1 mg 04/05/24 16:50 04/05/24 17:01 Hydromorphone 1 Mg/1ml Inj IV 04/05/24 16:51 1 mg STAT ONE Administration Hydromorphone HCl Confirm 04/05/24 16:56 Hydromorphone 1 Mg/1ml Inj Administered 04/05/24 16:57 Dose 1 mg .ROUTE .STK-MED ONE Sodium Chloride 1,000 mls @ 999 mls/hr 04/05/24 12:35 04/05/24 13:54 Sodium Chloride 0.9% 1000 Ml IV 04/05/24 13:35 Infused .Q1H1M STA Infusion Sodium Chloride Confirm 04/05/24 12:48 Sodium Chloride 0.9% 1000 Ml Administered 04/05/24 12:49 Dose 1,000 mls @ ud .ROUTE .STK-MED ONE Ceftriaxone Sodium 2 gm in 100 mls @ 200 mls/hr 04/05/24 15:39 04/05/24 16:57 Rocephin 2 Gm/100 Ml Nacl IV 04/05/24 16:08 Infused STAT ONE Infusion Ceftriaxone Sodium Confirm 04/05/24 16:08 Rocephin 2 Gm/100 Ml Nacl Administered 04/05/24 16:09 Dose 2 gm in 100 mls @ ud IV .STK-MED ONE Morphine Sulfate 4 mg 04/05/24 12:35 04/05/24 12:53 Morphine Sulfate 4 Mg/Ml Injection IV 04/05/24 12:36 4 mg STAT ONE Administration Morphine Sulfate Confirm 04/05/24 12:48 Morphine Sulfate 4 Mg/Ml Injection Administered 04/05/24 12:49 Dose 4 mg .ROUTE .STK-MED ONE Morphine Sulfate 4 mg 04/05/24 14:57 04/05/24 15:00 Morphine Sulfate 4 Mg/Ml Injection IV 04/05/24 14:58 4 mg STAT ONE Administration Morphine Sulfate Confirm 04/05/24 15:00 Morphine Sulfate 4 Mg/Ml Injection Administered 04/05/24 15:01 Dose 4 mg .ROUTE .STK-MED ONE Ondansetron HCl 4 mg 04/05/24 12:35 04/05/24 12:52 Ondansetron Hcl 4 Mg/2 Ml Vial IV 04/05/24 12:36 4 mg STAT ONE Administration Ondansetron HCl Confirm 04/05/24 12:48 Ondansetron Hcl 4 Mg/2 Ml Vial Administered 04/05/24 12:49 Dose 4 mg .ROUTE .STK-MED ONE Lab/Rad Data: Laboratory Result Diagrams 04/05/24 12:30 04/05/24 12:30 Laboratory Results 04/05/24 04/05/24 04/05/24 Range/Units 15:04 12:45 12:35 WBC (3.98-10.04) x10^3/uL RBC (3.93-5.22) x10^6/uL Hgb (11.2-15.7) g/dL Hct (34.1-44.9) % MCV (79.4-94.8) fL MCH (25.6-32.2) pg MCHC (32.2-35.5) g/dL RDW (11.7-14.4) % Plt Count (182-369) x10^3/uL MPV (9.4-12.3) fL Gran % (34.0-71.1) % Immature Gran % (Auto) (0.001-0.429) % Nucleat RBC Rel Count (0.00-0.2) % Eos # (Auto) (0.04-0.36) x10^3/uL Immature Gran # (Auto) (0.001-0.031) x10^3u/L Absolute Lymphs (auto) (1.18-3.74) x10^3/uL Absolute Monos (auto) (0.24-0.86) x10^3/uL Absolute Nucleated RBC (0.00-0.012) x10^3u/L Lymphocytes % (19.3-51.7) % Monocytes % (4.7-12.5) % Eosinophils % (0.7-5.8) % Basophils % (0.1-1.2) % Absolute Granulocytes (1.56-6.13) x10^3/uL Basophils # (0.01-0.08) x10^3/uL Sodium (135-145) mmol/L Potassium (3.5-5.1) mmol/L Chloride (98-107) mmol/L Carbon Dioxide (22-30) mmol/L Anion Gap (5-15) MEQ/L BUN (7-17) mg/dL Creatinine (0.52-1.04) mg/dL Estimated GFR ML/MIN Glucose (74-106) mg/dL Lactic Acid 2.1 H 3.2 H (0.4-2.0) Calcium (8.4-10.2) mg/dL Total Bilirubin (0.2-1.3) mg/dL AST (14-36) U/L ALT (0-35) U/L Alkaline Phosphatase (38-126) U/L Serum Total Protein (6.3-8.2) g/dL Albumin (3.5-5.0) g/dL Lipase (23-300) U/L Urine Color Yellow (Yellow) Urine Appearance Clear (Clear) Urine pH 6.5 (4.6-8.0) Ur Specific Worden 1.020 (1.005-1.030) Urine Protein >=1000 A (Negative) Urine Glucose (UA) Negative (Negative) mg/dL Urine Ketones Negative (Negative) Urine Blood Moderate A (Negative) Urine Nitrite Negative (Negative) Urine Bilirubin Negative (Negative) Urine Urobilinogen 1.0 A (0.2) mg/dL Ur Leukocyte Esterase Small A (Negative) U Hyaline Cast (Auto) 0-2 (0-2) /LPF Urine Microscopic RBC NONE (0-5) /HPF Urine Microscopic WBC 11-20 A (0-5) /HPF Ur Epithelial Cells Rare (None Seen) /HPF Urine Bacteria Rare A (None Seen) /HPF Ur Yeast w Hyphae Few A (None Seen) /HPF Urine Culture Reflexed YES (NO) Ethyl Alcohol (0-10) mg/dL 04/05/24 04/05/24 04/05/24 Range/Units 12:30 12:30 12:30 WBC 7.1 (3.98-10.04) x10^3/uL RBC 4.25 (3.93-5.22) x10^6/uL Hgb 12.1 (11.2-15.7) g/dL Hct 37.7 (34.1-44.9) % MCV 88.7 (79.4-94.8) fL MCH 28.5 (25.6-32.2) pg MCHC 32.1 L (32.2-35.5) g/dL RDW 14.6 H (11.7-14.4) % Plt Count 189 (182-369) x10^3/uL MPV 9.5 (9.4-12.3) fL Gran % 47.7 (34.0-71.1) % Immature Gran % (Auto) 0.4 (0.001-0.429) % Nucleat RBC Rel Count 0.0 (0.00-0.2) % Eos # (Auto) 0.05 (0.04-0.36) x10^3/uL Immature Gran # (Auto) 0.03 (0.001-0.031) x10^3u/L Absolute Lymphs (auto) 3.21 (1.18-3.74) x10^3/uL Absolute Monos (auto) 0.37 (0.24-0.86) x10^3/uL Absolute Nucleated RBC 0.00 (0.00-0.012) x10^3u/L Lymphocytes % 45.0 (19.3-51.7) % Monocytes % 5.2 (4.7-12.5) % Eosinophils % 0.7 (0.7-5.8) % Basophils % 1.0 (0.1-1.2) % Absolute Granulocytes 3.41 (1.56-6.13) x10^3/uL Basophils # 0.07 (0.01-0.08) x10^3/uL Sodium 142 (135-145) mmol/L Potassium 3.8 (3.5-5.1) mmol/L Chloride 104 (98-107) mmol/L Carbon Dioxide 28 (22-30) mmol/L Anion Gap 13.6 (5-15) MEQ/L BUN 18 H (7-17) mg/dL Creatinine 0.75 (0.52-1.04) mg/dL Estimated GFR 96.9 ML/MIN Glucose 104 (74-106) mg/dL Lactic Acid (0.4-2.0) Calcium 7.8 L (8.4-10.2) mg/dL Total Bilirubin 0.50 (0.2-1.3) mg/dL AST 71 H (14-36) U/L ALT 38 H (0-35) U/L Alkaline Phosphatase 110 (38-126) U/L Serum Total Protein 7.8 (6.3-8.2) g/dL Albumin 4.2 (3.5-5.0) g/dL Lipase 291 (23-300) U/L Urine Color (Yellow) Urine Appearance (Clear) Urine pH (4.6-8.0) Ur Specific Worden (1.005-1.030) Urine Protein (Negative) Urine Glucose (UA) (Negative) mg/dL Urine Ketones (Negative) Urine Blood (Negative) Urine Nitrite (Negative) Urine Bilirubin (Negative) Urine Urobilinogen (0.2) mg/dL Ur Leukocyte Esterase (Negative) U Hyaline Cast (Auto) (0-2) /LPF Urine Microscopic RBC (0-5) /HPF Urine Microscopic WBC (0-5) /HPF Ur Epithelial Cells (None Seen) /HPF Urine Bacteria (None Seen) /HPF Ur Yeast w Hyphae (None Seen) /HPF Urine Culture Reflexed (NO) Ethyl Alcohol 333 H (0-10) mg/dL - Progress Progress: improved Progress Note: 04/05/24 16:51 48 years old is evaluated in the ER for worsening lower abdominal pain and hav ing UTI symptoms. Patient recently signed out AMA from [facility]. She has negative neuroexam in lower extremities but significant tenderness in the lower back midline. She is given fluids and symptomatic treatment. Workup showed normal white count, chemistries with some element of dehydration, normal lipase but has a lactate of 3.2 which upon recheck after fluids is improved to 2.1. Does have UTI and given a dose of Rocephin. Patient blood alcohol is in 300s. I have obtained CT abdomen pelvis which is negative for any acute intra- abdominal pelvic findings. CT lumbar spine showed L2 superior endplate compression fracture and laminectomy of L4-L5 and some other degenerative disc disease is with some bulging and foraminal narrowing. Discussed with Dr. Linn Ortho/spine [facility], reviewed history, workup, recommended transfer to [facility]. Discussed results of workup with patient and plan of transfer which she understands and agrees. She is given multiple doses of pain medications with some relief. 04/05/24 17:17 Transfer center is called and patient is in auto accepted by Dr. French Discussed with Dr.: Other (Dr. Linn 1610 orthopedic/spine [facility]) Counseled pt/family regarding: lab results, diagnosis, rad results, smoking cessation Medical Desision Making - Independent Historian Additional History obtained from: [employer]/[facility]T - Discussion of managment Care discussed with:: specialist (Dr. Steinberg) Reviewed:: Test results Agreed on:: Treatment plan Will see patient: in hospital - Diagnostic Testing Diagnostic test were ordered, analyzed, and reviewed by me: Yes Radiological Interpretation: Reviewed by me, Teleradiologist Report - Risk of complications The pt has a mod risk of morbidity or mortality based on: Need for prescription drug management The pt has a high risk of morbidity or mortality based on: Need for major surgery in patient with known risk factors, Decision regarding hospitilization or escalation of hosp level of care - Departure Departure Disposition: Transfer Clinical Impression: Compression fracture of L2 lumbar vertebra, Alcohol abuse Condition: Stable Critical Care Time: Yes Critical Care Time(excluding separately billable procedures): Critical 30-74 mins Referrals: LAURA GOODMAN [Primary Care Provider] - Follow up/PCP as directed
[2024-04-05] MEDS ORDERED: Sodium Chloride 0.9% 1000 ML 1,000 ML ONE (12:48)
[2024-04-05] MEDS ORDERED: Zofran 4 MG/2 ML VIAL ONE (12:48)
[2024-04-05] MEDS ORDERED: MORPHINE SULFATE 4 MG INJ ONE ×2 (12:48→15:00)
[2024-04-05] MEDS: Sodium Chloride 0.9% 1000 ML 1,000 ML IV STA (12:51)
[2024-04-05 12:52] LABS: Absolute Neutrophil Ct (ANC) 3.41 x10^3/uL (1.56-6.13); Basophil (Absolute #) 0.07 x10^3/uL (0.01-0.08); Eosinophil % 0.7 % (0.7-5.8); Eosinophil (Absolute #) 0.05 x10^3/uL (0.04-0.36); Hematocrit 37.7 % (34.1-44.9); Hemoglobin 12.1 g/dL (11.2-15.7); IMMATURE GRAN # 0.03 x10^3u/L (0.001-0.031); IMMATURE GRAN % 0.4 % (0.001-0.429); Lymphocyte (Absolute #) 3.21 x10^3/uL (1.18-3.74); Mean Cell Volume 88.7 fL (79.4-94.8); Mean Corpuscular Hemoglobin 28.5 pg (25.6-32.2); Mean Corpuscular Hgb Concent. 32.1 g/dL (32.2-35.5); Mean Platelet Volume 9.5 fL (9.4-12.3); Monocyte (Absolute #) 0.37 x10^3/uL (0.24-0.86); Monocytes % 5.2 % (4.7-12.5); Neutrophil % 47.7 % (34.0-71.1); Platelet Count 189 x10^3/uL (182-369); Red Blood Count 4.25 x10^6/uL (3.93-5.22); Red Cell Distribution Width 14.6 % (11.7-14.4); White Blood Count 7.1 x10^3/uL (3.98-10.04)
[2024-04-05] MEDS: Zofran 4 MG/2 ML VIAL IV ONE (12:52)
[2024-04-05] MEDS: MORPHINE SULFATE 4 MG INJ IV ONE ×2 (12:53→15:00)
[2024-04-05 13:10] LABS: Appearance Clear (Clear); Bilirubin Negative (Negative); Blood Moderate (Negative); Epithelial Cells Rare /HPF (None Seen); Glucose, Urine Negative (Negative); Ketones Negative (Negative); Leukocyte Esterase Small (Negative); Nitrite Negative (Negative); Ph 6.5 (4.6-8.0); Protein,Urine Dip >=1000 (Negative)
[2024-04-05 13:11] LABS: Bacteria Rare /HPF (None Seen); Hyaline Casts 0-2 /LPF (0-2); Hyphae Yeast Few /HPF (None Seen)
[2024-04-05 14:12] LABS: ALBUMIN 4.2 g/dL (3.5-5.0); ANION GAP 13.6 MEQ/L (5-15); BILIRUBIN,TOTAL 0.5 mg/dL (0.2-1.3); Calcium 7.8 mg/dL (8.4-10.2); Creatinine 1 0.75 mg/dL (0.52-1.04); EST GLOMERULAR FILTRATION RATE 96.9 ML/MIN; Potassium 3.8 mmol/L (3.5-5.1); Total Protein 7.8 g/dL (6.3-8.2)
--- NOTE | 2024-04-05 14:23 | XRAY ---
CLINICAL HISTORY: pain COMPARISON: None. TECHNIQUE: CT non-contrast scan of lumbar spine done. Axial images obtained with reformatted coronal and sagittal images and submitted for interpretation. One of the following dose reduction techniques were utilized for this exam: Automated exposure control, adjustment of the mA and/or kV according to patient size, use of iterative reconstruction. FINDINGS: Vertebrae: The straightening of the lumbar spine signifies muscle spasm with mild grade 1 retrolisthesis at the L5-S1 level. Bilateral spinolaminectomy at L4-L5 level with posterior vertebral fixation screw. Multilevel schmorl nodes with superior endplate compression at L2 vertebra of indeterminate age. Normal bone density without evidence of osteopenia or osteoporosis. Intervertebral Discs: Reduced intervertebral disc height at L2-L3 and L3-L4 level with diffuse disc bulges and bilateral mild facet arthropathic changes causing neural foraminal narrowing bilaterally. Difuse disc bulge with central disc herniation is also noted at L5-S1 level causing bilateral neural foraminal narrowing. Multilevel osteophytes are also seen. Facet Joints: Multilevel mild facet arthropathic changes are visible. Soft Tissues: Mild soft tissue edema is noted in the muscles of the back. No abnormal masses, or fluid collections. Findings of the abdomen is described with CT of the abdomen and pelvis. IMPRESSION: 1. Superior endplate compression of L2 vertebra and multilevel schmorl nodes, indeterminate age, clinical correlation and MRI lumbar spine is advised to rule out the possibility of acute compression fracture. 2. Spinolaminectomy with posterior vertebral fixation at L4-L5 level. 3. Moderate lumbar spondylosis with disc bulges causing multilevel neural foraminal narrowing as described. Clinical correlation and MRI lumbar spine is advised for detailed evaluation. Electronically Signed by: Edna Trejo MD. (04/05/2024 14:20:01 EST)
--- NOTE | 2024-04-05 14:55 | XRAY ---
CLINICAL HISTORY: flank pain/uti COMPARISON: Comparison is made with 12/12/2023 CT abdomen and pelvis TECHNIQUE: Non-contrast CT of the abdomen and pelvis was performed, with the following protocol: axial images, and reconstructed coronal and sagittal images. No intravenous contrast was administered. One of the following dose reduction techniques was utilized for this exam: Automated exposure control, adjustment of the mA and/or kV according to patient size, and use of iterative reconstruction. FINDINGS: Abdomen: Interval resolution of right perinephric and periureteric fat stranding. Redemonstration of: The liver is enlarged in size (19.8cm), showing diffuse hypoattenuation signifying steatosis. The portal vein, intrahepatic biliary radicals, and the bile ducts are normal. Stable tiny simple cysts in the liver. The spleen, pancreas, and adrenal glands are unremarkable. The kidneys are enlarged with innumerable variable-sized hypodense cysts consistent with polycystic kidney disease. Few of them show internal hyperdensities. Bilateral multiple hyperdense stones are noted, the largest at the upper pole of the left kidney appears stable. No hydronephrosis. Redemonstration of cholecystectomy surgical clips noted with post-cholecystectomy CBD dilatation measuring approximately 16mm. The ascending colon, the transverse colon, the descending colon, visualized small bowel loops do not show any significant evidence of bowel wall thickening or dilatation. Sigmoid noncomplicated diverticulosis is evident. The stationary course of the multiple paraaortic and mesenteric nodes with the largest left paraaortic at the level of the left renal hilum. Pelvis: The urinary bladder is unremarkable. The appendix is unremarkable. The uterus is unremarkable. No evidence of pelvic lymphadenopathy. Findings of the lumbar spine are explained with CT lumbar spine. Slices through the lower chest reveal a few fibrotic scars. IMPRESSION: 1. Hepatomegaly with hepatic steatosis and a few simple hepatic cysts. 2. Stable appearance of bilateral polycystic kidneys with interval resolution of any significant right perinephric and periureteric fat stranding. Bilateral non-obstructive renal stones. 3. Colonic diverticulosis without diverticulitis. 4. Stable rest of the study with findings of lumbar spine explained with CT lumbar spine. Electronically Signed by: Edna Trejo MD. (04/05/2024 14:51:01 EST)
[2024-04-05] MEDS ORDERED: ROCEPHIN 2 GM/100 ML NACL 2 GM/100 ML IVPB IV ONE (16:08)
[2024-04-05] MEDS: ROCEPHIN 2 GM/100 ML NACL 2 GM/100 ML IVPB IV ONE (16:09)
[2024-04-05] MEDS ORDERED: Hydromorphone 1 mg/ml Injection ONE (16:56)
[2024-04-05] MEDS: Hydromorphone 1 mg/ml Injection IV ONE (17:01)
[2024-04-05 17:35] VITALS: PULSE 94
[2024-04-05 18:55] VITALS: BP 162/96; O2SAT 92
== END 2024-04-05 19:00 | disposition short-term general hospital (02) ==
LOC: ED 12:03
DX: S32.020A Wedge compression fracture of second lumbar vertebra, initial encounter for closed fracture (principal); M54.50 Low back pain, unspecified; F10.10 Alcohol abuse, uncomplicated; I10 Essential (primary) hypertension; E11.9 Type 2 diabetes mellitus without complications; F17.200 Nicotine dependence, unspecified, uncomplicated; N39.0 Urinary tract infection, site not specified
CPT/HCPCS: 36415; 74176; 76376; 80053; 81001; 82077; 83605; 83690; 85025; 87086; 96365; 96374; 96375; 96376; 99285; 99291; J0696; J1171; J2270; J2405

== ENCOUNTER 2024-04-12 14:15 | Observation (INO) | payer OTHER ==
--- NOTE | 2024-04-12 15:08 | XRAY ---
Indication: Chest pain. Comparison: August 23, 2023 Portable apical lordotic demonstrates new subtle bibasilar infiltrates/atelectasis without consolidation/large effusion. Heart not enlarged. Bony thorax intact.
[2024-04-12 15:34] LABS: Absolute Neutrophil Ct (ANC) 2.29 x10^3/uL (1.56-6.13); BASOPHIL % 0.4 % (0.1-1.2); Basophil (Absolute #) 0.02 x10^3/uL (0.01-0.08); Eosinophil % 1.4 % (0.7-5.8); Eosinophil (Absolute #) 0.08 x10^3/uL (0.04-0.36); Hematocrit 36.6 % (34.1-44.9); Hemoglobin 11.4 g/dL (11.2-15.7); IMMATURE GRAN # 0.04 x10^3u/L (0.001-0.031); IMMATURE GRAN % 0.7 % (0.001-0.429); Lymphocyte (Absolute #) 2.45 x10^3/uL (1.18-3.74); Lymphocytes % 44.1 % (19.3-51.7); Mean Cell Volume 90.6 fL (79.4-94.8); Mean Corpuscular Hemoglobin 28.2 pg (25.6-32.2); Mean Corpuscular Hgb Concent. 31.1 g/dL (32.2-35.5); Mean Platelet Volume 10.1 fL (9.4-12.3); Monocyte (Absolute #) 0.68 x10^3/uL (0.24-0.86); Monocytes % 12.2 % (4.7-12.5); Neutrophil % 41.2 % (34.0-71.1); Platelet Count 150 x10^3/uL (182-369); Red Blood Count 4.04 x10^6/uL (3.93-5.22); Red Cell Distribution Width 15.5 % (11.7-14.4); White Blood Count 5.6 x10^3/uL (3.98-10.04)
[2024-04-12 15:38] LABS: ALBUMIN 4.3 g/dL (3.5-5.0); ALKALINE PHOSPHATASE 187 U/L (38-126); ANION GAP 18.6 MEQ/L (5-15); BLOOD UREA NITROGEN 16 mg/dL (7-17); CHLORIDE 106 mmol/L (98-107); Calcium 8.2 mg/dL (8.4-10.2); Carbon Dioxide 17 mmol/L (22-30); Creatinine 1 0.92 mg/dL (0.52-1.04); EST GLOMERULAR FILTRATION RATE 75.9 ML/MIN; Glucose 88 mg/dL (74-106); Potassium 4.1 mmol/L (3.5-5.1); SGOT/AST 115 U/L (14-36); SGPT/ALT 87 U/L (0-35); SODIUM 138 mmol/L (135-145); TROPONIN < 0.012 ng/mL (0.000-0.033); Total Protein 8.1 g/dL (6.3-8.2)
[2024-04-12] MEDS ORDERED: Zofran 4 MG/2 ML VIAL ONE (15:45)
[2024-04-12] MEDS ORDERED: MORPHINE SULFATE 4 MG INJ ONE (15:45)
[2024-04-12] MEDS: MORPHINE SULFATE 4 MG INJ IV ONE (15:48)
[2024-04-12] MEDS: Zofran 4 MG/2 ML VIAL IV ONE (15:48)
--- NOTE | 2024-04-12 16:51 | ERPHSYRPT ---
<CHERIE STILES - Last Filed: 04/12/24 16:46> - History of Present Illness Time Seen by Provider: 04/12/24 14:42 Historian: patient Exam Limitations: no limitations Patient Subjective Stated Complaint: pt here for chest pain nonradiating and right arm numbness today, she has back surg on wednesday, pt is a poor historian . Triage Nursing Assessment: pt alert, walked in, resp easy, skin w/d/p.pt keeps rubbing arm. has strong radial pulse. right arm pink cap refill less than 3 sec, has bandaids in place to lower back, no redness or drainage, Physician History: 48 years old female with history of hypertension, COPD with chronic respiratory failure on 2 L oxygen, alcohol abuse, chronic back pain with surgical fixation by Dr. Villegas last week presented in the ER with complains of chest pain sub sternal since morning. Moderate to severe sharp. Patient also reports some tightness in the right upper extremity. Does have back pain for which she is given pain medication and denies any numbness tingling or focal weakness in lower extremities. Patient reports she had a cardiac cath done some years back and had 45 to 50% blockage. No history of stenting. Allergies/Adverse Reactions: bismuth subsalicylate [From Pepto-Bismol] Allergy (Mild, Verified 04/12/24 14:2 3) Swelling sulfamethoxazole [From Bactrim] Allergy (Verified 04/12/24 14:23) Swelling trimethoprim [From Bactrim] Allergy (Verified 04/12/24 14:23) Swelling ANTACIDS Allergy (Uncoded 04/12/24 14:23) Swelling Home Medications: Lisinopril 20 mg [Zestril 20 MG] 1 tab PO DAILY 03/21/23 [History] Metoprolol Succinate 50 mg [Toprol Xl 50 MG] 1 tab PO DAILY 03/21/23 [History] Asenapine Maleate 10 mg SL HS 08/23/23 [History] Atorvastatin Calcium 20 mg PO DAILY 08/23/23 [History] Cholecalciferol (Vitamin D3) [Vitamin D] 2,000 unit PO WEEKLY 08/23/23 [H istory] Famotidine 20 mg [Pepcid 20 MG] 40 mg PO DAILY 08/23/23 [History] Finerenone [Kerendia] 20 mg PO DAILY 08/23/23 [History] Folic Acid 1 mg [Folate 1 mg] 1 mg PO DAILY 08/23/23 [History] Losartan Potassium 50 mg [Cozaar 50 MG] 50 mg PO DAILY 08/23/23 [History] Magnesium Oxide 400 mg [Mag-Ox 400] 400 mg PO DAILY 08/23/23 [History] Ropinirole 2Mg [Requip 2Mg Tab] 3 mg PO HS 08/23/23 [History] Thiamine HCl 100 mg [Vitamin B-1 100 mg] 100 mg PO DAILY 08/23/23 [History] Trazodone HCl 50 mg [Desyrel 50 mg] 200 mg PO HS 08/23/23 [History] icosapent ethyL [Vascepa] 2 cap PO BID 08/23/23 [History] Cephalexin Mh 500 mg [Keflex 500 mg] 500 mg PO BID 12/06/23 [History] Hx Tetanus, Diphtheria Vaccination/Date Given: Yes Hx Influenza Vaccination/Date Given: No Hx Pneumococcal Vaccination/Date Given: Yes Immunizations Up to Date: Yes Travel Risk - International Travel Have you traveled outside of the country in past 3 weeks: No - Emerging Infectious Disease Are you exhibiting symptoms associated with any current EIDs: No Symptoms: Headaches/Body Aches/, Shortness of Breath - Review of Systems Constitutional: No Symptoms Eyes: No Symptoms Ears, Nose, & Throat: No Symptoms Respiratory: No Symptoms Cardiac: Chest Pain Abdominal/Gastrointestinal: No Symptoms Genitourinary Symptoms: No Symptoms Musculoskeletal: Back Pain Skin: No Symptoms Neurological: No Symptoms Psychological: Alcohol Abuse, Anxiety Endocrine: No Symptoms Hematologic/Lymphatic: No Symptoms - Past Medical History Pertinent Past Medical History: Yes Neurological History: No Pertinent History ENT History: No Pertinent History Cardiac History: Hypertension Respiratory History: Bronchitis, COPD Endocrine Medical History: Diabetes Type II, Other Musculoskeletal History: Degenerative Disk Disease, Fibromyalgia, Osteo arthritis, Rheumatoid Arthritis GI Medical History: Gallbladder Disease, Hepatitis History: Other Psycho-Social History: Anxiety, Depression Female Reproductive Disorders: Abnormal Uterine Bleeding, Menstrual Problems Other Medical History: POLYCYSTIC RENAL DISEASE , HX OF DRUG ABUSE - Past Surgical History Past Surgical History: Yes Neuro Surgical History: No Pertinent History Cardiac: Cardiac Catheterization Respiratory: No Pertinent History Gastrointestinal: Cholecystectomy Genitourinary: Other Musculoskeletal: Orthopedic Surgery Female Surgical History: Tubal Ligation, Other Other Surgical History: ankle, knee, uterine ablasion,knee surg, back,kidney stone removal. kidney stent 202109/02/21 and 10/2023, back surgery 04/2024 Significant Family History: no pertinent family hx - Female History Hx Last Menstrual Period: no Hx Now: No - Social History Smoking Status: Current every day smoker How long have you smoked: 40 yrs Exposure to second hand smoke: Yes Drug Use: marijuana Patient Lives Alone: No - Social Determinants of Health Will the patient participate in the screening: Declined to provide - Physical Exam General Appearance: no apparent distress, anxiety Eye Exam: PERRL/EOMI Ears, Nose, Throat Exam: normal ENT inspection Neck Exam: normal inspection, full range of motion Respiratory Exam: normal breath sounds, lungs clear Cardiovascular Exam: regular rate/rhythm, normal heart sounds Gastrointestinal/Abdomen Exam: soft, normal bowel sounds, No tenderness Back Exam: normal inspection, normal range of motion Extremity Exam: normal inspection, normal range of motion, tenderness (Right for earm muscular tenderness) Neurologic Exam: alert, oriented x 3, cooperative, fashion patternmaker II-XII nml as tested, sensation nml, No normal mood/affect, No motor deficits Skin Exam: normal color SpO2 Interpretation: normal SpO2: 96 O2 Delivery: Room Air - Departure Clinical Impression: Polycystic kidney, Alcohol use, ACS (acute coronary syndrome), Chest pain Condition: Stable Referrals: LAURA GOODMAN [Primary Care Provider] - Follow up/PCP as directed <MIGUEL RAYMOND - Last Filed: 04/13/24 01:08> - History of Present Illness Nitro Today/Relief: no nitro taken today Aspirin Treatment Today: no aspirin today - Nursing Vital Signs Nursing Vital Signs: Initial Vital Signs Pulse Rate 102 H 04/12/24 14:34 Respiratory Rate 26 H 04/12/24 14:34 O2 Sat by Pulse Oximetry 98 04/12/24 14:34 Pain Scale Pain Intensity 4 - Course Nursing assessment & vital signs reviewed: Yes - CT Exams Chest CT Interpretation: Tele-radiologist Report (Normal CT PE. Fatty liver, polycystic kidney) Ordered Tests: Active Orders 24 hr Category Date Time Status Project Asst STAT Care 04/12/24 14:45 Active EKG-ER Only STAT Care 04/12/24 14:45 Active IV Insertion STAT Care 04/12/24 14:45 Active Pulse Oximetry (ED) STAT Care 04/12/24 14:45 Active CHEST 1 VIEW (PORTABLE) Stat Exams 04/12/24 14:45 Completed CHEST WITH CONTRAST [CT] Stat Exams 04/12/24 17:22 Taken VENOUS UNILAT/LIMITED EXTREMIT [US] Stat Exams 04/12/24 15:34 Completed BLOOD CULTURE Stat Lab 04/12/24 16:12 Received CBC W DIFF Stat Lab 04/12/24 15:08 Completed CMP Stat Lab 04/12/24 15:08 Completed D-DIMER QUANTITATIVE Stat Lab 04/12/24 16:47 Completed ETHYL ALCOHOL Stat Lab 04/12/24 15:35 Completed Lactic Acid Stat Lab 04/12/24 16:05 Completed TROPONIN Q4H Lab 04/12/24 15:08 Completed TROPONIN Q4H Lab 04/12/24 22:50 Completed Medication Summary Discontinued Medications Generic Name Dose Route Start Last Admin Trade Name Freq PRN Reason Stop Dose Admin Hydrocodone Bitart/Acetaminophen 1 tab 04/12/24 23:35 04/12/24 23:52 Hydrocodone/Apap 5/325 1 Tab Tablet PO 04/12/24 23:36 1 tab STAT ONE Administration Hydrocodone Bitart/Acetaminophen Confirm 04/12/24 23:50 Hydrocodone/Apap 5/325 1 Tab Tablet Administered 04/12/24 23:51 Dose 1 tab .ROUTE .STK-MED ONE Hydromorphone HCl 0.5 mg 04/12/24 16:48 04/12/24 17:41 Hydromorphone 1 Mg/1ml Inj IV 04/12/24 16:49 0.5 mg STAT ONE Administration Hydromorphone HCl Confirm 04/12/24 17:39 Hydromorphone 1 Mg/1ml Inj Administered 04/12/24 17:40 Dose 1 mg .ROUTE .STK-MED ONE Hydromorphone HCl 0.5 mg 04/12/24 20:20 04/12/24 20:23 Hydromorphone 1 Mg/1ml Inj IV 04/12/24 20:21 0.5 mg STAT ONE Administration Hydromorphone HCl Confirm 04/12/24 20:20 Hydromorphone 1 Mg/1ml Inj Administered 04/12/24 20:21 Dose 1 mg .ROUTE .STK-MED ONE Sodium Chloride 1,000 mls @ 999 mls/hr 04/12/24 16:47 04/12/24 19:01 Sodium Chloride 0.9% 1000 Ml IV 04/12/24 17:47 Infused .Q1H1M STA Infusion Sodium Chloride Confirm 04/12/24 17:39 Sodium Chloride 0.9% 1000 Ml Administered 04/12/24 17:40 Dose 1,000 mls @ ud .ROUTE .STK-MED ONE Ceftriaxone Sodium 2 gm in 100 mls @ 200 mls/hr 04/12/24 18:14 04/12/24 20:07 Rocephin 2 Gm/100 Ml Nacl IV 04/12/24 18:43 200 mls/hr STAT ONE 200 mls/hr Administration Azithromycin 500 mg in 250 mls @ 250 mls/hr 04/12/24 18:14 04/12/24 20:06 Zithromax 500 Mg/ 250 Ml Nacl Premix IV 04/12/24 19:13 250 mls/hr STAT STA 250 mls/hr Administration Azithromycin Confirm 04/12/24 20:05 Zithromax 500 Mg/ 250 Ml Nacl Premix Administered 04/12/24 20:06 Dose 500 mg in 250 mls @ ud IV .STK-MED ONE Ceftriaxone Sodium Confirm 04/12/24 20:05 Rocephin 2 Gm/100 Ml Nacl Administered 04/12/24 20:06 Dose 2 gm in 100 mls @ ud IV .STK-MED ONE Lidocaine HCl Confirm 04/12/24 20:05 Lidocaine - Mpf 2% 5 Ml Vial Administered 04/12/24 20:06 Dose 5 ml .ROUTE .STK-MED ONE Morphine Sulfate 4 mg 04/12/24 15:34 04/12/24 15:48 Morphine Sulfate 4 Mg/Ml Injection IV 04/12/24 15:35 4 mg STAT ONE Administration Morphine Sulfate Confirm 04/12/24 15:45 Morphine Sulfate 4 Mg/Ml Injection Administered 04/12/24 15:46 Dose 4 mg .ROUTE .STK-MED ONE Nitroglycerin 1 gm 04/12/24 23:34 04/12/24 23:51 Nitroglycerin 1 Gm Packet TOP 04/12/24 23:35 1 gm STAT ONE Administration Nitroglycerin Confirm 04/12/24 23:50 Nitroglycerin 1 Gm Packet Administered 04/12/24 23:51 Dose 1 gm .ROUTE .STK-MED ONE Ondansetron HCl 4 mg 04/12/24 15:34 04/12/24 15:48 Ondansetron Hcl 4 Mg/2 Ml Vial IV 04/12/24 15:35 4 mg STAT ONE Administration Ondansetron HCl Confirm 04/12/24 15:45 Ondansetron Hcl 4 Mg/2 Ml Vial Administered 04/12/24 15:46 Dose 4 mg .ROUTE .STK-MED ONE Lab/Rad Data: Laboratory Result Diagrams 04/12/24 15:08 04/12/24 15:08 Laboratory Results 04/12/24 04/12/24 04/12/24 Range/Units 22:50 16:47 16:05 WBC (3.98-10.04) x10^3/uL RBC (3.93-5.22) x10^6/uL Hgb (11.2-15.7) g/dL Hct (34.1-44.9) % MCV (79.4-94.8) fL MCH (25.6-32.2) pg MCHC (32.2-35.5) g/dL RDW (11.7-14.4) % Plt Count (182-369) x10^3/uL MPV (9.4-12.3) fL Gran % (34.0-71.1) % Immature Gran % (Auto) (0.001-0.429) % Nucleat RBC Rel Count (0.00-0.2) % Eos # (Auto) (0.04-0.36) x10^3/uL Immature Gran # (Auto) (0.001-0.031) x10^3u/L Absolute Lymphs (auto) (1.18-3.74) x10^3/uL Absolute Monos (auto) (0.24-0.86) x10^3/uL Absolute Nucleated RBC (0.00-0.012) x10^3u/L Lymphocytes % (19.3-51.7) % Monocytes % (4.7-12.5) % Eosinophils % (0.7-5.8) % Basophils % (0.1-1.2) % Absolute Granulocytes (1.56-6.13) x10^3/uL Basophils # (0.01-0.08) x10^3/uL D-Dimer 2.73 H* (0.0-0.50) mg/L Sodium (135-145) mmol/L Potassium (3.5-5.1) mmol/L Chloride (98-107) mmol/L Carbon Dioxide (22-30) mmol/L Anion Gap (5-15) MEQ/L BUN (7-17) mg/dL Creatinine (0.52-1.04) mg/dL Estimated GFR ML/MIN Glucose (74-106) mg/dL Lactic Acid 1.9 (0.4-2.0) Calcium (8.4-10.2) mg/dL Total Bilirubin (0.2-1.3) mg/dL AST (14-36) U/L ALT (0-35) U/L Alkaline Phosphatase (38-126) U/L Troponin I < 0.012 (0.000-0.033) ng/mL Serum Total Protein (6.3-8.2) g/dL Albumin (3.5-5.0) g/dL Ethyl Alcohol (0-10) mg/dL 04/12/24 04/12/24 04/12/24 Range/Units 15:35 15:08 15:08 WBC 5.6 (3.98-10.04) x10^3/uL RBC 4.04 (3.93-5.22) x10^6/uL Hgb 11.4 (11.2-15.7) g/dL Hct 36.6 (34.1-44.9) % MCV 90.6 (79.4-94.8) fL MCH 28.2 (25.6-32.2) pg MCHC 31.1 L (32.2-35.5) g/dL RDW 15.5 H (11.7-14.4) % Plt Count 150 L (182-369) x10^3/uL MPV 10.1 (9.4-12.3) fL Gran % 41.2 (34.0-71.1) % Immature Gran % (Auto) 0.7 H (0.001-0.429) % Nucleat RBC Rel Count 0.0 (0.00-0.2) % Eos # (Auto) 0.08 (0.04-0.36) x10^3/uL Immature Gran # (Auto) 0.04 H (0.001-0.031) x10^3u/L Absolute Lymphs (auto) 2.45 (1.18-3.74) x10^3/uL Absolute Monos (auto) 0.68 (0.24-0.86) x10^3/uL Absolute Nucleated RBC 0.00 (0.00-0.012) x10^3u/L Lymphocytes % 44.1 (19.3-51.7) % Monocytes % 12.2 (4.7-12.5) % Eosinophils % 1.4 (0.7-5.8) % Basophils % 0.4 (0.1-1.2) % Absolute Granulocytes 2.29 (1.56-6.13) x10^3/uL Basophils # 0.02 (0.01-0.08) x10^3/uL D-Dimer (0.0-0.50) mg/L Sodium 138 (135-145) mmol/L Potassium 4.1 (3.5-5.1) mmol/L Chloride 106 (98-107) mmol/L Carbon Dioxide 17 L (22-30) mmol/L Anion Gap 18.6 H (5-15) MEQ/L BUN 16 (7-17) mg/dL Creatinine 0.92 (0.52-1.04) mg/dL Estimated GFR 75.9 ML/MIN Glucose 88 (74-106) mg/dL Lactic Acid (0.4-2.0) Calcium 8.2 L (8.4-10.2) mg/dL Total Bilirubin 0.30 (0.2-1.3) mg/dL AST 115 H (14-36) U/L ALT 87 H (0-35) U/L Alkaline Phosphatase 187 H (38-126) U/L Troponin I < 0.012 (0.000-0.033) ng/mL Serum Total Protein 8.1 (6.3-8.2) g/dL Albumin 4.3 (3.5-5.0) g/dL Ethyl Alcohol 81 H (0-10) mg/dL - Progress Progress: improved Air Movement: good Progress Note: Aspirin not administered secondary to allergy 04/12/24 23:34 Patient reassessed. Chest pain improving. Troponin negative. EKG sinus rhythm. CTA chest negative. Patient given Dilaudid morphine and [place] for chest pain. In light of patient's ongoing chest pain and cardiovascular risk factors patient will be admitted for further evaluation and treatment. Case discussed with hospitalist who accepts admission to observation at 1:02 AM. Plan of care discussed with patient. She agrees to admission at [facility] for further evaluation and treatment. Portions of this note were created with voice recognition technology. There may be grammatical, spelling, punctuation or sound alike errors Complexity of problem addressed is moderate acute complicated. No critical care time. Complexity of data reviewed and analyzed is extensive. Test ordered test reviewed results analyzed and correlated clinically with history and physical exam. Management discussed with hospitalist who accepts admission to observation. Risk of complication and or risk of morbidity/mortality of patient management is high. Patient requires hospitalization for further evaluation and treatment. Vital stable. Time spent admit patient is approximately 20 minutes. Plan of care established for shared decision making. No social determinants of health present to impede follow-up. Portions of this note were created with voice recognition technology. There may be grammatical, spelling, punctuation or sound alike errors 04/13/24 01:02 Blood Culture(s) Obtained: Yes Antibiotics given: No Counseled pt/family regarding: lab results, diagnosis, rad results - Departure Departure Disposition: Observation Critical Care Time: No
--- NOTE | 2024-04-12 16:53 | XRAY ---
Indication: Pain and swelling. Two-dimensional sonogram and color Doppler imaging major venous vessels right upper extremity performed. Comparison: None No thrombus seen in the visualized right internal jugular, subclavian, axillary, brachial, basilic, cephalic, radial, and ulnar veins. Veins demonstrate normal compressibility and normal venous waveforms. Impression: Right upper extremity negative for venous thrombosis.
[2024-04-12] MEDS ORDERED: Sodium Chloride 0.9% 1000 ML 1,000 ML ONE (17:39)
[2024-04-12] MEDS ORDERED: Hydromorphone 1 mg/ml Injection ONE ×2 (17:39→20:20)
[2024-04-12] MEDS: Sodium Chloride 0.9% 1000 ML 1,000 ML IV STA (17:40)
[2024-04-12] MEDS: Hydromorphone 1 mg/ml Injection IV ONE ×2 (17:41→20:23)
[2024-04-12] MEDS ORDERED: ROCEPHIN 2 GM/100 ML NACL 2 GM/100 ML IVPB IV ONE (20:05)
[2024-04-12] MEDS ORDERED: Xylocaine-Mpf 2% 5 Ml Vial ONE (20:05)
[2024-04-12] MEDS ORDERED: Zithromax 500 MG/ 250 ML NaCl Premix 500 MG/250 ML IVPB IV ONE (20:05)
[2024-04-12] MEDS: Zithromax 500 MG/ 250 ML NaCl Premix 500 MG/250 ML IVPB IV STA (20:06)
[2024-04-12] MEDS: ROCEPHIN 2 GM/100 ML NACL 2 GM/100 ML IVPB IV ONE (20:07)
[2024-04-12] MEDS ORDERED: NORCO 5/325 MG ONE (23:50)
[2024-04-12] MEDS ORDERED: NITRO-BID 2% UD PACKETS ONE (23:50)
[2024-04-12] MEDS: NITRO-BID 2% UD PACKETS TOP ONE (23:51)
[2024-04-12] MEDS: NORCO 5/325 MG PO ONE (23:52)
--- NOTE | 2024-04-13 01:10 | PCM.HP ---
History of Present Illness - Chief Complaint Chief Complaint: Chest pain Date: 04/13/24 History of Present Illness: 48 years old female with history of hypertension, COPD with chronic respiratory failure on 2 L oxygen, alcohol abuse, chronic back pain with surgical fixation by Dr. Villegas last week presented in the ER with complains of chest pain substernal since morning. She told me that she is having left chest pain since this morning not radiating to left arm and states she is having pain in her right arm. She tried to take nitroglycerin aspirin but it did not help her at all. Denied having any radiation to jaw neck and back area. Did not have any new shortness of breath. She is having strong family of coronary artery disease in both parents at early ages. She is active smoker and heavy alcohol drinker In the ER the initial blood pressure was 140/114 pulse 85 she was afebrile troponin x 2 is negative EKG unremarkable as well as blood work of concern white cell count 5.6 hemoglobin 11.4 platelets 150. Sodium 138 potassium 4.1 chloride 106 bicarb 17 BUN 16 creatinine 0.92 D-dimer 2.[address] chest that remained negative for pulmonary embolism. Patient got multiple doses of IV Dilaudid without any improvement of chest pain she got admitted to rule out acute coronary syndrome. - Review of Systems All Other Systems: Reviewed and Negative (14 systems reviewed and ,arled -ve except mentioned in [facility]) Medications & Allergies Home Medications: Home Medication List Asenapine Maleate 10 mg SL HS 08/23/23 [History Confirmed 04/13/24] Ropinirole 2Mg [Requip 2Mg Tab] 3 mg PO HS 08/23/23 [History Confirmed 04/13/24] Trazodone HCl 50 mg [Desyrel 50 mg] 200 mg PO HS 08/23/23 [History Confirmed 04/13/24] Dulaglutide [Trulicity] 3 mg SQ WEEKLY 04/13/24 [History Confirmed 04/13/24] Hydrocodone/Acetaminophen [Hydrocodone-Acetamin 5-325 mg] 1 tab PO Q6HPRN PRN MDD 4 04/13/24 [History Confirmed 04/13/24] Hydroxyzine HCl 25 mg [Atarax 25 mg] 50 mg PO HS 04/13/24 [History Confirmed 04/13/24] Allergies/Adverse Reactions: Allergies Allergy/AdvReac Type Severity Reaction Status Date / Time bismuth subsalicylate Allergy Mild Swelling Verified 04/12/24 14:23 [From Pepto-Bismol] sulfamethoxazole Allergy Swelling Verified 04/12/24 14:23 [From Bactrim] trimethoprim [From Bactrim] Allergy Swelling Verified 04/12/24 14:23 ANTACIDS Allergy Swelling Uncoded 04/12/24 14:23 - Past Medical History Past Medical History: Yes Neurological History: No Pertinent History ENT History: No Pertinent History Cardiac History: Hypertension Respiratory History: Bronchitis, COPD Endocrine Medical History: Diabetes Type II, Other Musculoskelatal History: Degenerative Disk Disease, Fibromyalgia, Osteoarthritis, Rheumatoid Arthritis GI Medical History: Gallbladder Disease, Hepatitis History: Other Pyscho-Social History: Anxiety, Depression Reproductive Disorders: Abnormal Uterine Bleeding, Menstrual Problems Comment: POLYCYSTIC RENAL DISEASE , HX OF DRUG ABUSE - Female History Hx Last Menstrual Period: no Are you now?: No - Past Surgical History Past Surgical History: Yes Neuro Surgical History: No Pertinent History Cardiac History: Cardiac Catheterization Respiratory Surgery: No Pertinent History GI Surgical History: Cholecystectomy Genitourinary Surgical Hx: Other Musculskeletal Surgical Hx: Orthopedic Surgery Female Surgical History: Tubal Ligation, Other Other Surgical History: ankle, knee, uterine ablasion,knee surg, back,kidney stone removal. kidney stent 202109/02/21 and 10/2023, back surgery 04/2024 Significant Family History: no pertinent family hx - Social History Smoking Status: Current every day smoker How long have you smoked: 40 yrs Exposure to second hand smoke: Yes Alcohol: Heavy Drug Use: marijuana - Social Determinants of Health Will the patient participate in the screening: Declined to provide Do you worry about a steady place to live?: No In the past 12 months,have you had to go without utilities?: No Have you or anyone in your house had to go without enough: No Transportation Issues: No Has anyone in your support network made you feel unsafe?: No - Physical Exam Vital Signs: Vital Signs - 24 hr Temp Pulse Pulse Resp BP BP Pulse Ox 04/13/24 00:09 80 22 167/99 98 04/13/24 00:08 97 H 18 97 04/13/24 00:02 99 H 19 87 L 04/12/24 23:31 90 22 140/114 88 L 04/12/24 23:00 83 15 175/137 04/12/24 22:25 89 22 180/107 100 04/12/24 22:00 91 H 18 163/121 100 04/12/24 21:31 93 H 27 H 166/120 99 04/12/24 21:01 84 15 218/125 99 04/12/24 20:59 99 H 28 H 200/116 92 L 04/12/24 20:53 94 H 27 H 154/117 71 L 04/12/24 20:33 155/104 04/12/24 20:32 98 H 22 96 04/12/24 20:30 107 H 21 04/12/24 20:20 98 H 23 04/12/24 20:10 97 H 15 84 L 04/12/24 20:00 93 H 23 95 04/12/24 19:50 91 H 22 04/12/24 19:40 97 H 17 04/12/24 19:33 105 H 28 H 82 L 04/12/24 19:20 94 H 23 04/12/24 19:10 93 H 21 04/12/24 19:00 96 H 19 04/12/24 18:50 94 H 20 04/12/24 18:40 93 H 22 04/12/24 18:30 95 H 21 86 L 04/12/24 18:20 93 H 16 04/12/24 18:10 92 H 20 04/12/24 18:03 93 H 21 04/12/24 17:46 87 20 134/81 97 04/12/24 17:44 88 18 134/81 95 04/12/24 17:21 98 04/12/24 17:00 100 H 04/12/24 16:51 96 04/12/24 16:50 97 H 20 04/12/24 16:40 97 H 17 04/12/24 16:30 99 H 17 82 L 04/12/24 16:20 97 H 17 96 04/12/24 16:10 98 H 18 100 04/12/24 16:00 96 H 18 96 04/12/24 15:50 93 H 21 97 04/12/24 15:40 96 H 27 H 97 04/12/24 15:30 96 H 18 97 04/12/24 15:20 98 H 19 96 04/12/24 15:10 98 H 17 96 04/12/24 15:04 96 04/12/24 15:00 93 H 22 98 04/12/24 14:50 99 H 19 97 04/12/24 14:41 97.4 F 99 H 80 20 110/70 98 04/12/24 14:40 102 H 18 98 04/12/24 14:34 102 H 26 H 98 Additional Findings: 04/13/24 01:09 HEENT Middle aged, average built in no distress NECK Supple,no thyromegaly, CVS S1+S2 + 0, no murmers RESP Bilateral equal air entry without Crepts/Wheezes heard GIT Soft non tender,non distended Skin, No rah, no Bruises LEGS No Edema PSYCH Normal,mood, judgement and insight NEURO AOX3, no focal deficit Results - Labs Lab/Micro Results: Lab Results-Last 24 Hours 04/12/24 04/12/24 04/12/24 Range/Units 15:08 15:08 15:35 WBC 5.6 (3.98-10.04) x10^3/uL RBC 4.04 (3.93-5.22) x10^6/uL Hgb 11.4 (11.2-15.7) g/dL Hct 36.6 (34.1-44.9) % MCV 90.6 (79.4-94.8) fL MCH 28.2 (25.6-32.2) pg MCHC 31.1 L (32.2-35.5) g/dL RDW 15.5 H (11.7-14.4) % Plt Count 150 L (182-369) x10^3/uL MPV 10.1 (9.4-12.3) fL Gran % 41.2 (34.0-71.1) % Immature Gran % (Auto) 0.7 H (0.001-0.429) % Nucleat RBC Rel Count 0.0 (0.00-0.2) % Eos # (Auto) 0.08 (0.04-0.36) x10^3/uL Immature Gran # (Auto) 0.04 H (0.001-0.031) x10^3u/L Absolute Lymphs (auto) 2.45 (1.18-3.74) x10^3/uL Absolute Monos (auto) 0.68 (0.24-0.86) x10^3/uL Absolute Nucleated RBC 0.00 (0.00-0.012) x10^3u/L Lymphocytes % 44.1 (19.3-51.7) % Monocytes % 12.2 (4.7-12.5) % Eosinophils % 1.4 (0.7-5.8) % Basophils % 0.4 (0.1-1.2) % Absolute Granulocytes 2.29 (1.56-6.13) x10^3/uL Basophils # 0.02 (0.01-0.08) x10^3/uL D-Dimer (0.0-0.50) mg/L Sodium 138 (135-145) mmol/L Potassium 4.1 (3.5-5.1) mmol/L Chloride 106 (98-107) mmol/L Carbon Dioxide 17 L (22-30) mmol/L Anion Gap 18.6 H (5-15) MEQ/L BUN 16 (7-17) mg/dL Creatinine 0.92 (0.52-1.04) mg/dL Estimated GFR 75.9 ML/MIN Glucose 88 (74-106) mg/dL Lactic Acid (0.4-2.0) Calcium 8.2 L (8.4-10.2) mg/dL Total Bilirubin 0.30 (0.2-1.3) mg/dL AST 115 H (14-36) U/L ALT 87 H (0-35) U/L Alkaline Phosphatase 187 H (38-126) U/L Troponin I < 0.012 (0.000-0.033) ng/mL Serum Total Protein 8.1 (6.3-8.2) g/dL Albumin 4.3 (3.5-5.0) g/dL Ethyl Alcohol 81 H (0-10) mg/dL 04/12/24 04/12/24 04/12/24 Range/Units 16:05 16:47 22:50 WBC (3.98-10.04) x10^3/uL RBC (3.93-5.22) x10^6/uL Hgb (11.2-15.7) g/dL Hct (34.1-44.9) % MCV (79.4-94.8) fL MCH (25.6-32.2) pg MCHC (32.2-35.5) g/dL RDW (11.7-14.4) % Plt Count (182-369) x10^3/uL MPV (9.4-12.3) fL Gran % (34.0-71.1) % Immature Gran % (Auto) (0.001-0.429) % Nucleat RBC Rel Count (0.00-0.2) % Eos # (Auto) (0.04-0.36) x10^3/uL Immature Gran # (Auto) (0.001-0.031) x10^3u/L Absolute Lymphs (auto) (1.18-3.74) x10^3/uL Absolute Monos (auto) (0.24-0.86) x10^3/uL Absolute Nucleated RBC (0.00-0.012) x10^3u/L Lymphocytes % (19.3-51.7) % Monocytes % (4.7-12.5) % Eosinophils % (0.7-5.8) % Basophils % (0.1-1.2) % Absolute Granulocytes (1.56-6.13) x10^3/uL Basophils # (0.01-0.08) x10^3/uL D-Dimer 2.73 H* (0.0-0.50) mg/L Sodium (135-145) mmol/L Potassium (3.5-5.1) mmol/L Chloride (98-107) mmol/L Carbon Dioxide (22-30) mmol/L Anion Gap (5-15) MEQ/L BUN (7-17) mg/dL Creatinine (0.52-1.04) mg/dL Estimated GFR ML/MIN Glucose (74-106) mg/dL Lactic Acid 1.9 (0.4-2.0) Calcium (8.4-10.2) mg/dL Total Bilirubin (0.2-1.3) mg/dL AST (14-36) U/L ALT (0-35) U/L Alkaline Phosphatase (38-126) U/L Troponin I < 0.012 (0.000-0.033) ng/mL Serum Total Protein (6.3-8.2) g/dL Albumin (3.5-5.0) g/dL Ethyl Alcohol (0-10) mg/dL - Radiology Impressions Radiology Exams & Impressions: Radiology Procedures Category Date Time Status CHEST 1 VIEW (PORTABLE) Stat Exams 04/12/24 14:45 Completed CHEST WITH CONTRAST [CT] Stat Exams 04/12/24 17:22 Taken VENOUS UNILAT/LIMITED EXTREMIT [US] Stat Exams 04/12/24 15:34 Completed Assessment/Plan (1) ACS (acute coronary syndrome) Current Visit: No Status: Acute Code(s): I24.9 - ACUTE ISCHEMIC HEART DISEASE, UNSPECIFIED (2) COPD (chronic obstructive pulmonary disease) Current Visit: No Status: Acute (3) Chest pain Current Visit: No Status: Acute Code(s): R07.9 - CHEST PAIN, UNSPECIFIED Telemedicine Encounter - Telemedicine Encounter Telemedicine Encounter: The entirety of this encounter was performed via Telemedicine"This visit was performed using real-time audio and video connection between my location and thepatients locationwith the assistance of a surrogateat the patients location. Written or verbal consent was obtained from the patient/guardian to perform this visit usingRelatient technology. Any patient questions regarding the telemedicine interaction were answered. Acute chest pain Patient seems having high cardiovascular risk factor ,will keep her admit on telemetry to rule out ACS 2 sets of troponin negative, 3rd one is pending She should get benefit from cardiology consult and stress test in the morning Will get echocardiogram Started Asp + BB Hypertension Blood pressure towards higher side Pt not on any Bp meds, will start Metoprolol 25 mg BID right now Hydralazine as pended. If more than 180 Elevated D-dimer D-dimer reported 2.60 CT chest negative for pulmonary embolism Right arm pain DVt scan -ve Hyperlipidemia Continue home statins COPD Patient is on 3 L oxygen at home Currently stable Duonebs prn Chronic back pain Status post back surgery last week Continue narcotics, will limit IV pain meds FM/DJD C/w pain meds Anxiety/Depression/Bipolar Will continue home meds Active smoker/Chronic alcohol abuse Planning to quit smoking, offered Nicotine patch Denied having any prior admit for alcohol withdrawl related Sx DVT prophylaxis SCD/Lovenox CODE STATUS full discharge plan pending clinical stability. I have reviewed patient lab vitals and imaging into the question and concerns were addressed
[2024-04-13] MEDS ORDERED: HUMALOG SQ PRN (02:06)
[2024-04-13] MEDS ORDERED: APRESOLINE 20 MG/ML INJ IV PRN (02:08)
[2024-04-13] MEDS ORDERED: NON-FORMULARY ITEM (Dulaglutide [Trulicity] 3 MG/0.5 ML Pen.Injctr) SQ SCH (02:15)
[2024-04-13] MEDS: NICODERM CQ 14 MG TOP SCH (02:24)
[2024-04-13] MEDS: NORVASC 5 MG PO ONE (02:25)
[2024-04-13] MEDS: NORCO 5/325 MG PO PRN (04:22)
[2024-04-13] MEDS ORDERED: DUONEB 0.5-3 MG/3 ml Neb IH ONE (04:51)
[2024-04-13] MEDS: DUONEB 0.5-3 MG/3 ml Neb IH SCH (05:05)
[2024-04-13 06:21] LABS: BASOPHIL % 0.6 % (0.1-1.2); Basophil (Absolute #) 0.03 x10^3/uL (0.01-0.08); Eosinophil % 2.4 % (0.7-5.8); Eosinophil (Absolute #) 0.12 x10^3/uL (0.04-0.36); Hematocrit 30.6 % (34.1-44.9); Hemoglobin 9.6 g/dL (11.2-15.7); IMMATURE GRAN # 0.02 x10^3u/L (0.001-0.031); IMMATURE GRAN % 0.4 % (0.001-0.429); Lymphocyte (Absolute #) 2.29 x10^3/uL (1.18-3.74); Lymphocytes % 45.1 % (19.3-51.7); Mean Cell Volume 90.5 fL (79.4-94.8); Mean Corpuscular Hemoglobin 28.4 pg (25.6-32.2); Mean Corpuscular Hgb Concent. 31.4 g/dL (32.2-35.5); Mean Platelet Volume 9.9 fL (9.4-12.3); Monocyte (Absolute #) 0.72 x10^3/uL (0.24-0.86); Monocytes % 14.2 % (4.7-12.5); Neutrophil % 37.3 % (34.0-71.1); Platelet Count 151 x10^3/uL (182-369); Red Blood Count 3.38 x10^6/uL (3.93-5.22); Red Cell Distribution Width 15.4 % (11.7-14.4); White Blood Count 5.1 x10^3/uL (3.98-10.04)
[2024-04-13 06:32] LABS: ANION GAP 7.5 MEQ/L (5-15); Calcium 7.6 mg/dL (8.4-10.2); Creatinine 1 0.87 mg/dL (0.52-1.04); EST GLOMERULAR FILTRATION RATE 81.1 ML/MIN; Potassium 3.9 mmol/L (3.5-5.1)
[2024-04-13] MEDS ORDERED: DUONEB 0.5-3 MG/3 ml Neb IH PRN (07:10)
[2024-04-13] MEDS ORDERED: MEDICATION INTERVENTION MC SCH (07:30)
[2024-04-13 08:11] VITALS: BP 141/103; PULSE 71; RESP 20; TEMP 97.6; O2SAT 99
--- NOTE | 2024-04-13 08:45 | XRAY ---
Indication: Chest pain. Elevated d-dimer. Multiple contiguous axial images obtained through the chest using 80 cc Isovue 370 contrast and PE exam. Comparison: September 27, 2023 Good opacification pulmonary arteries to include the lobar and segmental branches. No pulmonary embolus. Heart is not enlarged. Aorta is normal in course and caliber. No pathologic mediastinal/hilar lymphadenopathy. Lungs inflated and clear. Bony thorax intact again with minimal degenerative changes throughout spine. There has been interval L1/L2 vertebroplasty. Limited upper abdomen again demonstrates fatty liver, polycystic kidney disease with a few hepatic cysts, and cholecystectomy. Impression: 1. Negative pulmonary embolus. No new/acute cardiopulmonary abnormalities. 2. Chronic findings including polycystic kidney disease with hepatic cysts, fatty liver, and chronic bony findings.
[2024-04-13] MEDS: Lopressor 25MG Tab PO SCH (09:32)
[2024-04-13] MEDS: ECOTRIN 81 MG PO SCH (09:32)
[2024-04-13] MEDS: ENOXAPARIN SODIUM SQ SCH (09:35)
--- NOTE | 2024-04-13 17:45 | PCM.DS ---
Discharge Summary Date of Admission: 04/13/24 01:16 Date of Discharge: 04/13/24 Admitting Physician: JUANITA ARIAS MD Primary Care Provider: LAURA GOODMAN Allergies Allergies bismuth subsalicylate [From Pepto-Bismol] Allergy (Mild, Verified 04/12/24 14:23) Swelling sulfamethoxazole [From Bactrim] Allergy (Verified 04/12/24 14:23) Swelling trimethoprim [From Bactrim] Allergy (Verified 04/12/24 14:23) Swelling ANTACIDS Allergy (Uncoded 04/12/24 14:23) Swelling Hospital Summary - Hospital Course Hospital Course: 48 years old female with history of hypertension, COPD with chronic respiratory failure on 2 L oxygen, alcohol abuse, chronic back pain with surgical fixation by Dr. Villegas last week presented in the ER with complains of chest pain subst ernal since morning. She told me that she is having left chest pain since this morning not radiating to left arm and states she is having pain in her right arm. She tried to take nitroglycerin aspirin but it did not help her at all. Denied having any radiation to jaw neck and back area. Did not have any new shortness of breath. She is having strong family of coronary artery disease in both parents at early ages. She is active smoker and heavy alcohol drinker In the ER the initial blood pressure was 140/114 pulse 85 she was afebrile troponin x 2 is negative EKG unremarkable as well as blood work of concern white cell count 5.6 hemoglobin 11.4 platelets 150. Sodium 138 potassium 4.1 chloride 106 bicarb 17 BUN 16 creatinine 0.92 D-dimer 2.[address] chest that remained negative for pulmonary embolism. Patient got multiple doses of IV Dilaudid without any improvement of chest pain she got admitted to rule out acute coronary syndrome. Troponin neg x 3. Patient reporting chest pain has resolved. However she reports severe back pain and was unable to get comfortable in her hospital bed/chair and wanted to leave AMA -stated she got her echo and now she wants to leave. The patient is refusing any further care, and is leaving against medical advice. I am unable to convince the patient to stay. I have asked them to return as soon as possible to complete their evaluation, and also explained that they were welcome to return to the ER for further evaluation whenever they choose if symptoms return. 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 I explained the risks of leaving without further workup or treatment, which included reasonably foreseeable complications such as , serious injury, or permanent disability. I also offered alternatives to departing AMA such as providing additional pain medications to help with her back. The patient verbalized understanding of my concerns and requested AMA paperwork. - Vitals & Intake/Output Vital Signs: Vital Signs Temperature 97.6 F 04/13/24 08:00 Pulse Rate 71 04/13/24 08:00 Respiratory Rate 20 04/13/24 08:00 Blood Pressure 141/103 04/13/24 08:00 O2 Sat by Pulse Oximetry 99 04/13/24 08:00 Intake & Output: Intake & Output 04/11/24 04/12/24 04/13/24 04/14/24 11:59 11:59 11:59 11:59 Intake Total 360 Output Total 1000 Balance -640 Weight 86.5 kg - Lab Result Diagrams: 04/13/24 06:15 04/13/24 06:15 Lab Results-Last 24 Hrs: Lab Results-Last 24 Hours 04/12/24 04/13/24 04/13/24 Range/Units 22:50 06:15 06:15 WBC 5.1 (3.98-10.04) x10^3/uL RBC 3.38 L (3.93-5.22) x10^6/uL Hgb 9.6 L (11.2-15.7) g/dL Hct 30.6 L (34.1-44.9) % MCV 90.5 (79.4-94.8) fL MCH 28.4 (25.6-32.2) pg MCHC 31.4 L (32.2-35.5) g/dL RDW 15.4 H (11.7-14.4) % Plt Count 151 L (182-369) x10^3/uL MPV 9.9 (9.4-12.3) fL Gran % 37.3 (34.0-71.1) % Immature Gran % (Auto) 0.4 (0.001-0.429) % Nucleat RBC Rel Count 0.0 (0.00-0.2) % Eos # (Auto) 0.12 (0.04-0.36) x10^3/uL Immature Gran # (Auto) 0.02 (0.001-0.031) x10^3u/L Absolute Lymphs (auto) 2.29 (1.18-3.74) x10^3/uL Absolute Monos (auto) 0.72 (0.24-0.86) x10^3/uL Absolute Nucleated RBC 0.00 (0.00-0.012) x10^3u/L Lymphocytes % 45.1 (19.3-51.7) % Monocytes % 14.2 H (4.7-12.5) % Eosinophils % 2.4 (0.7-5.8) % Basophils % 0.6 (0.1-1.2) % Absolute Granulocytes 1.90 (1.56-6.13) x10^3/uL Basophils # 0.03 (0.01-0.08) x10^3/uL Sodium 136 (135-145) mmol/L Potassium 3.9 (3.5-5.1) mmol/L Chloride 105 (98-107) mmol/L Carbon Dioxide 27 (22-30) mmol/L Anion Gap 7.5 (5-15) MEQ/L BUN 17 (7-17) mg/dL Creatinine 0.87 (0.52-1.04) mg/dL Estimated GFR 81.1 ML/MIN Glucose 91 (74-106) mg/dL POC Glucometer (74 to 106) mg/dL Calcium 7.6 L (8.4-10.2) mg/dL Troponin I < 0.012 (0.000-0.033) ng/mL 04/13/24 04/13/24 Range/Units 06:15 07:30 WBC (3.98-10.04) x10^3/uL RBC (3.93-5.22) x10^6/uL Hgb (11.2-15.7) g/dL Hct (34.1-44.9) % MCV (79.4-94.8) fL MCH (25.6-32.2) pg MCHC (32.2-35.5) g/dL RDW (11.7-14.4) % Plt Count (182-369) x10^3/uL MPV (9.4-12.3) fL Gran % (34.0-71.1) % Immature Gran % (Auto) (0.001-0.429) % Nucleat RBC Rel Count (0.00-0.2) % Eos # (Auto) (0.04-0.36) x10^3/uL Immature Gran # (Auto) (0.001-0.031) x10^3u/L Absolute Lymphs (auto) (1.18-3.74) x10^3/uL Absolute Monos (auto) (0.24-0.86) x10^3/uL Absolute Nucleated RBC (0.00-0.012) x10^3u/L Lymphocytes % (19.3-51.7) % Monocytes % (4.7-12.5) % Eosinophils % (0.7-5.8) % Basophils % (0.1-1.2) % Absolute Granulocytes (1.56-6.13) x10^3/uL Basophils # (0.01-0.08) x10^3/uL Sodium (135-145) mmol/L Potassium (3.5-5.1) mmol/L Chloride (98-107) mmol/L Carbon Dioxide (22-30) mmol/L Anion Gap (5-15) MEQ/L BUN (7-17) mg/dL Creatinine (0.52-1.04) mg/dL Estimated GFR ML/MIN Glucose (74-106) mg/dL POC Glucometer 80 (74 to 106) mg/dL Calcium (8.4-10.2) mg/dL Troponin I < 0.012 (0.000-0.033) ng/mL - Radiology Exams Ordered Rad Exams-Entire Visit: Radiology Procedures Category Date Time Status CHEST 1 VIEW (PORTABLE) Stat Exams 04/12/24 14:45 Completed CHEST WITH CONTRAST [CT] Stat Exams 04/12/24 17:22 Completed ECHO W/2D AND DOPPLER [US] Routine Exams 04/13/24 02:06 Taken VENOUS UNILAT/LIMITED EXTREMIT [US] Stat Exams 04/12/24 15:34 Completed - Procedures and Test Procedures and Tests throughout Hospitalization: Therapy Orders & Screens 04/13/24 03:15 Respiratory Therapy Assessment DAILY Comment: Diagnosis: Chest pain 04/13/24 03:16 Oxygen Nasal Cannula 3 lpm Comment: Diagnosis: Chest pain 04/13/24 07:00 EKG ROUTINE Comment: Diagnosis: Chest pain - Discharge Disposition: Against Medical Advice Condition: Stable Prescriptions: No Action Trazodone HCl 50 mg [Desyrel 50 mg] 200 mg PO HS Asenapine Maleate 10 mg SL HS Ropinirole 2Mg [Requip 2Mg Tab] 3 mg PO HS Hydroxyzine HCl 25 mg [Atarax 25 mg] 50 mg PO HS Hydrocodone/Acetaminophen [Hydrocodone-Acetamin 5-325 mg] 1 tab PO Q6HPRN PRN MDD 4 PRN Reason: Pain Dulaglutide [Trulicity] 3 mg SQ WEEKLY Follow up with: LAURA GOODMAN [Primary Care Provider] -
[2024-04-13] MEDS ORDERED: DESYREL 50 MG PO SCH (22:00)
[2024-04-13] MEDS ORDERED: ATARAX 25 MG PO SCH (22:00)
[2024-04-13] MEDS ORDERED: REQUIP 2MG TAB PO SCH (22:00)
[2024-04-13] MEDS ORDERED: Desyrel 150 MG PO SCH (22:00)
== END 2024-04-13 11:00 | disposition left against medical advice (07) ==
LOC: ED 14:15 → MED SURG 04-13 01:16
PROVIDERS: ADMIT Internal Medicine; ATTEND Internal Medicine
DX: I24.9 Acute ischemic heart disease, unspecified (principal); J44.9 Chronic obstructive pulmonary disease, unspecified; R07.9 Chest pain, unspecified; I10 Essential (primary) hypertension; R79.89 Other specified abnormal findings of blood chemistry; M79.601 Pain in right arm; E78.5 Hyperlipidemia, unspecified; M54.9 Dorsalgia, unspecified; E11.9 Type 2 diabetes mellitus without complications; F41.9 Anxiety disorder, unspecified; F17.200 Nicotine dependence, unspecified, uncomplicated; F10.10 Alcohol abuse, uncomplicated; Z79.899 Other long term (current) drug therapy; Z99.81 Dependence on supplemental oxygen
CPT/HCPCS: 36415; 71045; 71260; 80048; 80053; 82077; 82947; 83605; 84484; 85025; 85379; 87040; 93005; 93041; 93306; 93971; 94760; 96360; 96374; 96375; 96376; Q3014; 93268; 99285; J0456; J0696; J1171; J1650; J2270; J2405; A9270-GY; G0378

== ENCOUNTER 2024-09-19 13:17 | Emergency (ER) | payer OTHER ==
[2024-09-19 13:38] VITALS: TEMP 98.2
--- NOTE | 2024-09-19 14:15 | ERPHSYRPT ---
- History of Present Illness Source: patient Exam Limitations: no limitations Patient Subjective Stated Complaint: c/o left sided flank pain and hematuria Triage Nursing Assessment: patient brought to [facility] by ex mother in law with c/o left sided flank and abdominal pain and hematuria. patient stated there was blood in her urine and in her depend this morning. urine sample collected upon arrival is cloudy and pale yellow. patient rates pain 8/10 and states it radiates to her left abdomen. patiemt states that she has a history of kidney stones. vitals wnl, skin w/n/d, afebrile, patient doesnt appear to be in any distress at this time. Physician History: Patient has hematuria and left flank pain. She has a history of kidney stones as this feels similar. She is nauseated but not vomiting. She does not have any other complaints. She does not have any dysuria. She has no fever or chills. Nothing makes The symptoms better or worse.She has no other complaints.She said that there was some bright red blood in her urine earlier.In her urine sample today it looked clear grossly. We will send it to lab. Allergies/Adverse Reactions: bismuth subsalicylate [From Pepto-Bismol] Allergy (Mild, Verified 09/19/24 13:29) Swelling sulfamethoxazole [From Bactrim] Allergy (Verified 09/19/24 13:29) Swelling trimethoprim [From Bactrim] Allergy (Verified 09/19/24 13:29) Swelling ANTACIDS Allergy (Uncoded 09/19/24 13:29) Swelling Home Medications: Ropinirole 2Mg [Requip 2Mg Tab] 3 mg PO DAILY 08/23/23 [History] Trazodone HCl 50 mg [Desyrel 50 mg] 200 mg PO HS 08/23/23 [History] Dulaglutide [Trulicity] 3 mg SQ WEEKLY 04/13/24 [History] Atorvastatin Calcium 40 mg PO DAILY 09/19/24 [History] Ciprofloxacin HCl 1 drop OP Q2H 09/19/24 [History] Dapagliflozin Propanediol [Farxiga] 10 mg PO DAILY 09/19/24 [History] Doxycycline Hyclate 100 mg [Vibramycin 100 MG] 100 mg PO BID 09/19/24 [History] Ergocalciferol (Vitamin D2) [Vitamin D2] 1 cap PO WEEKLY 09/19/24 [History] Ezetimibe 10 mg [Zetia 10 MG] 10 mg PO HS 09/19/24 [History] Folic Acid 1 mg PO DAILY 09/19/24 [History] Losartan Potassium 50 mg PO DAILY 09/19/24 [History] Lurasidone HCl 80 mg PO .DAILY WITH DINNER 09/19/24 [History] Metoprolol Succinate 50 mg PO DAILY 09/19/24 [History] Prazosin HCl 1 mg PO HS 09/19/24 [History] Ranolazine [Ranolazine ER] 500 mg PO BID 09/19/24 [History] Thiamine HCl [Vitamin B-1] 100 mg PO DAILY 09/19/24 [History] Hx Tetanus, Diphtheria Vaccination/Date Given: Yes Hx Influenza Vaccination/Date Given: No Hx Pneumococcal Vaccination/Date Given: No Travel Risk - International Travel Have you traveled outside of the country in past 3 weeks: No - Emerging Infectious Disease Are you exhibiting symptoms associated with any current EIDs: No Symptoms: Headaches/Body Aches/, Shortness of Breath - Review of Systems Constitutional: No Symptoms Eyes: No Symptoms Respiratory: No Symptoms All Other Systems: Reviewed and Negative - Past Medical History Pertinent Past Medical History: Yes Neurological History: No Pertinent History ENT History: No Pertinent History Cardiac History: Hypertension Respiratory History: Bronchitis, COPD Endocrine Medical History: Diabetes Type II, Other Musculoskeletal History: Degenerative Disk Disease, Fibromyalgia, Osteoarthritis, Rheumatoid Arthritis GI Medical History: Gallbladder Disease, Hepatitis History: Other Psycho-Social History: Anxiety, Depression Female Reproductive Disorders: Abnormal Uterine Bleeding, Menstrual Problems Other Medical History: POLYCYSTIC RENAL DISEASE , HX OF DRUG ABUSE - Past Surgical History Past Surgical History: Yes Neuro Surgical History: No Pertinent History Cardiac: Cardiac Catheterization Respiratory: No Pertinent History Gastrointestinal: Cholecystectomy Genitourinary: Other Musculoskeletal: Orthopedic Surgery Female Surgical History: Tubal Ligation, Other Other Surgical History: ankle, knee, uterine ablasion,knee surg, back,kidney stone removal. kidney stent 202109/02/21 and 10/2023, back surgery 04/2024 Significant Family History: no pertinent family hx - Female History Hx Last Menstrual Period: 2007 Hx Now: No - Social History Smoking Status: Current every day smoker How long have you smoked: 40 yrs Exposure to second hand smoke: Yes Drug Use: marijuana - Social Determinants of Health Will the patient participate in the screening: Declined to provide Do you worry about a steady place to live?: No In the past 12 months,have you had to go without utilities?: No Transportation Issues: No Has anyone in your support network made you feel unsafe?: No Have you or anyone in your house had to go w/o enough food: No - Nursing Vital Signs Nursing Vital Signs: Initial Vital Signs Temperature 98.2 F 09/19/24 13:30 Pulse Rate 98 H 09/19/24 13:30 Respiratory Rate 21 09/19/24 13:30 Blood Pressure 128/100 09/19/24 13:30 O2 Sat by Pulse Oximetry 97 09/19/24 13:30 Pain Scale Pain Intensity 6 - Physical Exam General Appearance: no apparent distress Eye Exam: PERRL/EOMI Gastrointestinal/Abdomen Exam: soft, normal bowel sounds, No tenderness Pelvic Exam: not done Neurologic Exam: alert, oriented x 3 Skin Exam: normal color, warm SpO2: 97 - Course Nursing assessment & vital signs reviewed: Yes Ordered Tests: Active Orders 24 hr Category Date Time Status ABDOMEN AND PELVIS W/0 CONTRAS [CT] Stat Exams 09/19/24 14:42 Completed BMP Stat Lab 09/19/24 14:34 Completed CBC W DIFF Stat Lab 09/19/24 14:34 Completed CULTURE,URINE Stat Lab 09/19/24 14:00 Received UA W/RFX UR CULTURE Stat Lab 09/19/24 14:00 Completed Medication Summary Discontinued Medications Generic Name Dose Route Start Last Admin Trade Name Roseanne PRN Reason Stop Dose Admin Ketorolac Tromethamine 15 mg 09/19/24 15:01 09/19/24 15:09 Ketorolac Tromethamine 30 Mg/Ml Inj IV 09/19/24 15:02 15 mg STAT ONE Administration Ketorolac Tromethamine Confirm 09/19/24 15:04 Ketorolac Tromethamine 30 Mg/Ml Inj Administered 09/19/24 15:05 Dose 30 mg .ROUTE .STK-MED ONE Lab/Rad Data: Laboratory Result Diagrams 09/19/24 14:34 09/19/24 14:34 Laboratory Results 09/19/24 09/19/24 09/19/24 Range/Units 14:34 14:34 14:00 WBC 7.0 (3.98-10.04) x10^3/uL RBC 4.20 (3.93-5.22) x10^6/uL Hgb 13.6 (11.2-15.7) g/dL Hct 42.1 (34.1-44.9) % MCV 100.2 H (79.4-94.8) fL MCH 32.4 H (25.6-32.2) pg MCHC 32.3 (32.2-35.5) g/dL RDW 13.6 (11.7-14.4) % Plt Count 126 L (182-369) x10^3/uL MPV 9.2 L (9.4-12.3) fL Gran % 65.0 (34.0-71.1) % Immature Gran % (Auto) 0.6 H (0.001-0.429) % Nucleat RBC Rel Count 0.0 (0.00-0.2) % Eos # (Auto) 0.12 (0.04-0.36) x10^3/uL Immature Gran # (Auto) 0.04 H (0.001-0.031) x10^3u/L Absolute Lymphs (auto) 1.67 (1.18-3.74) x10^3/uL Absolute Monos (auto) 0.59 (0.24-0.86) x10^3/uL Absolute Nucleated RBC 0.00 (0.00-0.012) x10^3u/L Lymphocytes % 23.9 (19.3-51.7) % Monocytes % 8.4 (4.7-12.5) % Eosinophils % 1.7 (0.7-5.8) % Basophils % 0.4 (0.1-1.2) % Absolute Granulocytes 4.54 (1.56-6.13) x10^3/uL Basophils # 0.03 (0.01-0.08) x10^3/uL Sodium 135 (135-145) mmol/L Potassium 4.4 (3.5-5.1) mmol/L Chloride 97 L (98-107) mmol/L Carbon Dioxide 29 (22-30) mmol/L Anion Gap 14.0 (5-15) MEQ/L BUN 18 H (7-17) mg/dL Creatinine 0.88 (0.52-1.04) mg/dL Estimated GFR 79.5 ML/MIN Glucose 93 (74-106) mg/dL Calcium 10.1 (8.4-10.2) mg/dL Urine Color Yellow (Yellow) Urine Appearance Clear (Clear) Urine pH 7.0 (4.6-8.0) Ur Specific [place] 1.010 (1.005-1.030) Urine Protein Negative (Negative) Urine Glucose (UA) >=1000 A (Negative) mg/dL Urine Ketones Negative (Negative) Urine Blood Large A (Negative) Urine Nitrite Negative (Negative) Urine Bilirubin Negative (Negative) Urine Urobilinogen 0.2 (0.2) mg/dL Ur Leukocyte Esterase Small A (Negative) U Hyaline Cast (Auto) NONE SEEN (0-2) /LPF Urine Microscopic RBC 51-100 A (0-5) /HPF Urine Microscopic WBC 21-50 A (0-5) /HPF Ur Epithelial Cells None Seen (None Seen) /HPF Urine Bacteria None Seen (None Seen) /HPF Urine Culture Reflexed YES (NO) - Progress Progress: improved Air Movement: good Progress Note: Patient was stable throughout stay. I got a CT it look like there is a stone in the bladder which is recently passed. I think she had a kidney stone which she passed. She has been pain-free since then.I am going to discharge her to home in stable condition.At this time I do not think any medicine is needed. 09/19/24 17:20 09/19/24 17:20 Blood Culture(s) Obtained: No Antibiotics given: No - Departure Departure Disposition: Home Clinical Impression: Kidney stone Condition: Stable Critical Care Time: No Referrals: LAURA GOODMAN [Primary Care Provider, UNKNOWN] - Follow up/PCP as directed Instructions: Kidney stones in adults
[2024-09-19 14:34] LABS: Absolute Neutrophil Ct (ANC) 4.54 x10^3/uL (1.56-6.13); BASOPHIL % 0.4 % (0.1-1.2); Basophil (Absolute #) 0.03 x10^3/uL (0.01-0.08); Eosinophil % 1.7 % (0.7-5.8); Eosinophil (Absolute #) 0.12 x10^3/uL (0.04-0.36); Hematocrit 42.1 % (34.1-44.9); Hemoglobin 13.6 g/dL (11.2-15.7); IMMATURE GRAN # 0.04 x10^3u/L (0.001-0.031); IMMATURE GRAN % 0.6 % (0.001-0.429); Lymphocyte (Absolute #) 1.67 x10^3/uL (1.18-3.74); Lymphocytes % 23.9 % (19.3-51.7); Mean Cell Volume 100.2 fL (79.4-94.8); Mean Corpuscular Hemoglobin 32.4 pg (25.6-32.2); Mean Corpuscular Hgb Concent. 32.3 g/dL (32.2-35.5); Mean Platelet Volume 9.2 fL (9.4-12.3); Monocyte (Absolute #) 0.59 x10^3/uL (0.24-0.86); Monocytes % 8.4 % (4.7-12.5); Platelet Count 126 x10^3/uL (182-369); Red Cell Distribution Width 13.6 % (11.7-14.4)
[2024-09-19 14:45] LABS: Appearance Clear (Clear); Bacteria None Seen /HPF (None Seen); Bilirubin Negative (Negative); Blood Large (Negative); Epithelial Cells None Seen /HPF (None Seen); Glucose, Urine >=1000 mg/dL (Negative); Hyaline Casts NONE SEEN /LPF (0-2); Ketones Negative (Negative); Leukocyte Esterase Small (Negative); Nitrite Negative (Negative); Protein,Urine Dip Negative (Negative); RBC 51-100 /HPF (0-5); Urobilinogen 0.2 mg/dL (0.2); WBC 21-50 /HPF (0-5)
[2024-09-19 14:48] LABS: Calcium 10.1 mg/dL (8.4-10.2); Creatinine 1 0.88 mg/dL (0.52-1.04); EST GLOMERULAR FILTRATION RATE 79.5 ML/MIN; Potassium 4.4 mmol/L (3.5-5.1)
[2024-09-19 15:01] VITALS: RESP 20
[2024-09-19] MEDS ORDERED: TORAdol 30 mg Injection ONE (15:04)
[2024-09-19] MEDS: TORAdol 30 mg Injection IV ONE (15:09)
[2024-09-19 16:18] VITALS: PULSE 79
--- NOTE | 2024-09-19 16:37 | XRAY ---
Indication: Left flank pain. Multiple contiguous axial images obtained through the abdomen and pelvis without contrast using renal stone protocol. Comparison: April 05, 2024 Lung bases clear. Heart not enlarged. Stable small hiatal hernia. Again multiple nonobstructing bilateral renal micro-calculi, again largest left lower pole measuring 1.1 cm. Right posterior urinary bladder demonstrates new 3-4 mm calculus. Again bilateral polycystic kidney disease. Again previous cholecystectomy. Noncontrasted stomach and bowel loops appear nonobstructed again with normal appendix. There remains mild sigmoid diverticulosis without diverticulitis. Again fatty liver. Right lobe liver demonstrates new regional wedge-shaped heterogeneous hypoattenuation at least 10.5 x 9.2 cm in greatest axial dimension and at least 9.0 cm in CC dimension. Lack of IV contrast precludes further characterization. Remaining pancreas, spleen, adrenal glands, and uterus are unremarkable for noncontrast exam. There remains mild scattered aortoiliac calcifications without AAA. Osseous structures intact again with osteopenia and bilateral L4-L5 facet screws. Interval L1/L2 vertebroplasty. Impression: 1. New 3-4 mm urinary bladder presumably from recent passage. 2. New right lobe hepatic wedge-shaped heterogeneous hypoattenuation. Contrasted exam may yield further information. 3. Again chronic findings including hiatal hernia, polycystic kidney disease, bilateral renal micro-calculi, colonic diverticulosis, fatty liver, arteriosclerotic disease, and chronic bony findings
[2024-09-19 17:06] VITALS: BP 161/107; O2SAT 97
== END 2024-09-19 17:30 | disposition home or self-care (01) ==
LOC: ED 13:17
DX: N20.0 Calculus of kidney (principal); R31.9 Hematuria, unspecified; R10.9 Unspecified abdominal pain; R11.0 Nausea; I10 Essential (primary) hypertension; E11.9 Type 2 diabetes mellitus without complications; Z79.85 Long-term (current) use of injectable non-insulin antidiabetic drugs; Z79.84 Long term (current) use of oral hypoglycemic drugs; Z79.899 Other long term (current) drug therapy; Z72.0 Tobacco use
CPT/HCPCS: 36415; 74176; 80048; 81001; 85025; 87086; 99284; J1885